=== PATIENT | female | born 1955 | race Caucasian/White ===

== ENCOUNTER → 2018-02-02 09:01 | Outpatient (CLI) | payer OTHER, SELFPAY ==
[2018-02-02 10:05] LABS: ALT 18 U/L (12-78); AST 15 U/L (15-37); Albumin 3.1 g/dL (3.4-5.0); Alkaline Phosphatase 129 U/L (46-116); Anion Gap 6.8 mmol/L (3-11); BUN 15 mg/dL (7-18); Bilirubin, Total 0.3 mg/dL (0.2-1.0); CO2 29.2 mmol/L (21.0-32.0); Calcium 8.7 mg/dL (8.5-10.1); Chloride 104 mmol/L (98-107); Cholesterol 162 mg/dL (50-200); Glucose 90 mg/dL (70-100); HDL Cholesterol 64 mg/dL (40-60); LDL CHOLESTEROL 87 mg/dL (<100); Potassium 4.1 mmol/L (3.5-5.1); Sodium 140 mmol/L (136-145); Triglyceride 103 mg/dL (30-150)
== END ==
PROVIDERS: PCP Nurse Practitioner; Visit Provider Nurse Practitioner
DX: E87.6 Hypokalemia (principal); R74.8 Abnormal levels of other serum enzymes
CPT/HCPCS: 36415; 80053; 80061; 83721

== ENCOUNTER 2018-04-06 08:34 | Outpatient (CLI) | payer OTHER, SELFPAY ==
--- NOTE | 2018-04-06 08:24 | DI.RAD_ITS ---
SYMPTOM/DIAGNOSIS: RT ANKLE PAIN RIGHT ANKLE: Two views. Comparison is made with 05/16/16. The joint space is well maintained. The bones are intact and normally mineralized. The soft tissues are unremarkable. There is a moderate sized spur at the inferior calcaneus. IMPRESSION: Negative right ankle.
== END 2018-04-06 08:54 ==
PROVIDERS: PCP Nurse Practitioner; Visit Provider Physician Assistant
DX: M25.571 Pain in right ankle and joints of right foot (principal); M77.31 Calcaneal spur, right foot
CPT/HCPCS: 73600

== ENCOUNTER 2018-04-06 14:16 | Outpatient (CLI) | payer OTHER, SELFPAY ==
--- NOTE | 2018-04-06 08:38 | DI.RAD_ITS ---
SYMPTOM/DIAGNOSIS: RT FOOT PAIN RIGHT FOOT: Comparison is made with 02/02/16. At the first metatarsal phalangeal joint, there is joint space narrowing and periarticular spurring. Findings of a prior bunionectomy are noted. These degenerative changes have advanced since 2016. Within the tarsal metatarsal joints, there is joint space narrowing, subchondral sclerosis, spurring and subchondral cysts. The findings are most marked at the first tarsal metatarsal joint. Osteophytes are seen at the talonavicular joint in the articulation of the navicular and the cuneiforms. There is a moderate sized spur at the plantar surface of the calcaneus. No radiopaque foreign bodies are seen in the soft tissues. There does appear to be mild soft tissue swelling on the dorsum of the foot. IMPRESSION: Moderately severe degenerative changes of the right foot. The findings have advanced significantly since 02/02/16.
== END 2018-04-06 14:36 ==
PROVIDERS: PCP Nurse Practitioner; Visit Provider Physician Assistant
DX: M79.671 Pain in right foot (principal); M19.071 Primary osteoarthritis, right ankle and foot; M25.771 Osteophyte, right ankle
CPT/HCPCS: 73630

== ENCOUNTER 2018-08-06 10:59 | Outpatient (REF) | payer OTHER, SELFPAY ==
--- NOTE | 2018-08-06 09:00 | PAPFT_PTH ---
PATIENT: Sada Fabian LOC: [facility] U#:[id number] AGE/SX: 62/F ROOM: RE08/06/[address]: Avis Bell MD : 1955 BED: DIS: 08/06/2018 SPEC #: [id number] RECD: 08/06/18 12:57 STATUS: TUCKER REAj #: [id number] JULY: 08/06/18 09:[address]: Avis Bell DEPT: [facility] Cytology RECD BY: Silvia Crabtree ENTERED: 08/06/18 12:57 SP TYPE: PAPFT OTHR DR: Zulay Castro Tissues: 1 - CX/ENDOCX FOR PAP SMEARS Procedures: PAP THIN PREP/UVM Screening HPV DNA PROBE Comments: [id number]
== END 2018-08-06 11:19 ==
LOC: LBN 10:59
PROVIDERS: PCP Nurse Practitioner; Visit Provider Obstetrics & Gynecology
DX: Z12.4 Encounter for screening for malignant neoplasm of cervix (principal); Z11.51 Encounter for screening for human papillomavirus (HPV)
CPT/HCPCS: 88142; 87624

== ENCOUNTER 2018-11-30 11:59 | Outpatient (CLI) | payer OTHER, SELFPAY ==
--- NOTE | 2018-11-30 13:36 | DI.CT_ITS ---
SYMPTOMS/DIAGNOSIS: ANKLE AND MIDFOOT PAIN, NO KNOWN TRAUMA, EVALUATE ARTHRITIS, SUBTALAR AND MIDFOOT, M19.071 CT SCAN OF THE RIGHT FOOT: Multiple contiguous axial images of the right foot were obtained. Sagittal and coronal reformatted images were evaluated on the Siem[employer] workstation. In the tarsal bones at the articular surfaces, there are subchondral cysts present. Subchondral erosions are also seen. No ankylosis or joint space narrowing is definitely appreciated. There do appear to be osteophytes at several of the joint spaces, particularly the tarsometatarsal joints. No significant osteopenia is appreciated. At the 1st metatarsophalangeal joint, there do appear to be periarticular erosions, subchondral cysts and small osteophytes. The joint space appears symmetric, but may be mildly narrowed. The interphalangeal joints are well maintained. No acute fractures or subluxations are present. There is a small osteophyte seen at the plantar surface of the calcaneus. There is generalized soft tissue swelling of the foot. No focal fluid collections are definitely appreciated to suggest an abscess. Mild narrowing and periarticular spurring are seen of the anterior ankle joint. IMPRESSION: Findings involving the joint spaces of the midfoot, 1st metatarsophalangeal joint and the ankle. Primary diagnostic concern is for osteoarthritis; however, other arthritides should be considered including gout. Please correlate clinically.
== END 2018-11-30 12:19 ==
PROVIDERS: PCP Nurse Practitioner; Visit Provider Student in an Organized Health Care Education/Training Program
DX: M19.071 Primary osteoarthritis, right ankle and foot (principal); M25.571 Pain in right ankle and joints of right foot; M79.671 Pain in right foot
CPT/HCPCS: 73700

== ENCOUNTER 2018-12-10 16:58 | Outpatient (REF) | payer OTHER, SELFPAY ==
[2018-12-12 11:11] LABS: Hepatitis C Ab w Rflx HCV PCR Negative (NEGAT)
== END 2018-12-10 17:18 ==
LOC: NCHCN 16:58
PROVIDERS: PCP Nurse Practitioner; Visit Provider Nurse Practitioner Family
DX: Z00.00 Encounter for general adult medical examination without abnormal findings (principal); Z11.59 Encounter for screening for other viral diseases
CPT/HCPCS: 86803

== ENCOUNTER 2019-02-14 19:14 | Outpatient (REF) | payer OTHER, SELFPAY ==
[2019-02-14 20:45] LABS: Abs Immature Grans 0.01 k/cumm (0.0-0.09); Absolute Basophil Count 0.04 k/cumm (0.0-0.2); Absolute Eosinophil Count 0.25 k/cumm (0.0-0.7); Absolute Lymphocyte Count 2.05 k/cumm (1.2-3.4); Absolute Monocyte Count 0.65 k/cumm (0.11-0.7); Absolute Neutrophil Count 5.34 k/cumm (1.2-6.7); Basophils % 0.5; HCT 35.2 % (36.0-46.0); HGB 11.2 g/dL (12.0-15.5); Immature Grans % 0.1; Lymphocytes % 24.6; Mean Corp. HGB Concentration 31.8 g/dL (32.0-36.0); Mean Corpuscular Hemoglobin 27.7 pg (27.0-33.0); Mean Corpuscular Volume 86.9 fL (80-95); Mean Platelet Volume 10.4 fL (8.0-11.0); Monocytes % 7.8; Platelet Count 412 x1000/uL (130-400); RBC 4.05 m/cumm (4.00-5.20); RBC Distribution Width 14.7 % (11.7-14.6); White Blood Cell Count 8.34 k/cumm (4.4-10.8)
[2019-02-14 21:33] LABS: ESR 89 mm/hr (0-30)
[2019-02-14 21:53] LABS: ALT 18 U/L (12-78); AST 17 U/L (15-37); Albumin 3.3 g/dL (3.4-5.0); Alkaline Phosphatase 119 U/L (46-116); Anion Gap 11.5 mmol/L (3-11); BUN 20 mg/dL (7-18); Bilirubin, Total 0.2 mg/dL (0.2-1.0); CO2 26.5 mmol/L (21.0-32.0); CREATININE 0.79 mg/dL (0.55-1.02); Calcium 8.7 mg/dL (8.5-10.1); Chloride 98 mmol/L (98-107); GGT 20 U/L (5-55); Glucose 85 mg/dL (70-100); Sodium 136 mmol/L (136-145); TSH (W/Ref FT4) 1.49 uIU/mL (0.36-3.74); Total Protein 7.7 g/dL (6.4-8.2)
[2019-02-14 22:17] LABS: Vitamin D 25 Total 70.3 ng/ml (30-100)
[2019-02-14 22:58] LABS: C-Reactive Protein 6.24 mg/dL (0.0-0.3)
[2019-02-18 09:19] LABS: Cyclic Citrullinated Peptide <2.5 U/mL (<5.0)
[2019-02-18 11:30] LABS: Lyme Ab w Rflx to Lyme Confirm Negative
[2019-02-18 12:16] LABS: Rheumatoid Factor 11 IU/mL (<12.5)
[2019-02-18 15:44] LABS: ANA Interpretation Positive (NEGAT); ANA Titer Pattern SEE COMMENTS
== END 2019-02-14 19:34 ==
LOC: NCHCN 19:14
PROVIDERS: PCP Nurse Practitioner; Visit Provider Nurse Practitioner Family
DX: I10 Essential (primary) hypertension (principal); R74.8 Abnormal levels of other serum enzymes; F41.9 Anxiety disorder, unspecified; M25.50 Pain in unspecified joint; M19.90 Unspecified osteoarthritis, unspecified site; G47.61 Periodic limb movement disorder; G47.33 Obstructive sleep apnea (adult) (pediatric); N95.1 Menopausal and female climacteric states
CPT/HCPCS: 80053; 82306; 85652; 86200; 82977; 84443; 85025; 86038; 86140; 86431; 86618

== ENCOUNTER 2019-02-20 15:26 | Outpatient (CLI) | payer OTHER, SELFPAY ==
[2019-02-26 11:10] LABS: dsDNA Ab, IgG <12.3 IU/mL (<30)
== END 2019-02-20 15:46 ==
LOC: LBO 18:23 → NCHCO 03-01 10:27
PROVIDERS: PCP Nurse Practitioner; Visit Provider Nurse Practitioner Family
DX: M25.50 Pain in unspecified joint (principal)
CPT/HCPCS: 36415; 86225

== ENCOUNTER 2019-03-01 09:39 | Outpatient (CLI) | payer OTHER, SELFPAY ==
[2019-03-05 10:47] LABS: RNP Ab, IgG 1.6 Units (<20); SS-B (La) Ab, IgG 8.6 Units (<20); Sm (Smith) Ab, IgG 2.4 Units (<20)
== END 2019-03-01 09:59 ==
PROVIDERS: PCP Nurse Practitioner Family; Visit Provider Nurse Practitioner Family
DX: M25.50 Pain in unspecified joint (principal); M19.90 Unspecified osteoarthritis, unspecified site; R79.89 Other specified abnormal findings of blood chemistry
CPT/HCPCS: 36415; 86235

== ENCOUNTER 2019-04-11 01:02 | Outpatient (CLI) | payer OTHER, SELFPAY ==
--- NOTE | 2019-04-11 14:14 | DI.MAMMO_ITS ---
EXAM: MG MAMMO SCREENING 60 MIN DUR CLINICAL HISTORY: screening, Z12.31. TECHNIQUE: Mammograms were interpreted according to the usual protocol including computer analysis w [employer] CAD system, tomosynthesis and C-view imaging. COMPARISON: Comparison is made with prior studies. FINDINGS: The breast tissue is of moderate radiodensity. Note is made of bilateral breast implants. There is no dominant mass. There are no suspicious calcifications. When compared with the previous studies, t here has been no significant interval change. IMPRESSION: No evidence of malignancy, category 1, yearly screening mammography is recommended. Breast density, c ategory B. BI-RADS Cat 1 - Negative. Breast Density - Category B - Scattered areas of fibroglandular density.
== END 2019-04-11 01:22 ==
PROVIDERS: PCP Nurse Practitioner Family; Visit Provider Obstetrics & Gynecology
DX: Z12.31 Encounter for screening mammogram for malignant neoplasm of breast (principal); Z98.82 Breast implant status
CPT/HCPCS: 77063; 77067

== ENCOUNTER 2019-05-27 14:53 | Outpatient (CLI) | payer OTHER, SELFPAY ==
[2019-05-27 15:17] LABS: Abs Immature Grans 0.01 k/cumm (0.0-0.09); Absolute Basophil Count 0.07 k/cumm (0.0-0.2); Absolute Eosinophil Count 0.18 k/cumm (0.0-0.7); Absolute Lymphocyte Count 2.69 k/cumm (1.2-3.4); Absolute Monocyte Count 0.83 k/cumm (0.11-0.7); Absolute Neutrophil Count 5.15 k/cumm (1.2-6.7); Basophils % 0.8; Immature Grans % 0.1; Lymphocytes % 30.1; Mean Corp. HGB Concentration 31.3 g/dL (32.0-36.0); Mean Corpuscular Hemoglobin 26.3 pg (27.0-33.0); Mean Corpuscular Volume 84.2 fL (80-95); Monocytes % 9.3; Neutrophils % 57.7; Platelet Count 456 x1000/uL (130-400); RBC Distribution Width 14.9 % (11.7-14.6); White Blood Cell Count 8.93 k/cumm (4.4-10.8)
[2019-05-27 16:09] LABS: Iron 21 ug/dL (50-170); Total Iron Binding Capacity 267 ug/dL (250-450); Transferrin Sat 8 % (15-50)
== END 2019-05-27 15:13 ==
PROVIDERS: PCP Nurse Practitioner Family; Visit Provider Nurse Practitioner Family
DX: D64.9 Anemia, unspecified (principal)
CPT/HCPCS: 36415; 83540; 83550; 85025

== ENCOUNTER 2019-08-14 15:48 | Outpatient (CLI) | payer OTHER, SELFPAY ==
[2019-08-14 16:57] LABS: Alkaline Phosphatase 110 U/L (46-116)
== END 2019-08-14 16:08 ==
PROVIDERS: PCP Nurse Practitioner Family; Visit Provider Internal Medicine Endocrinology, Diabetes & Metabolism
DX: R74.8 Abnormal levels of other serum enzymes (principal)
CPT/HCPCS: 36415; 84075

== ENCOUNTER 2019-08-30 10:43 | Outpatient (CLI) | payer OTHER, SELFPAY ==
--- NOTE | 2019-08-30 | DI.RAD_ITS ---
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 COMPARISON: No exams were available for comparison TECHNIQUE: 2D digital imaging was performed. FINDINGS: There is joint space narrowing between the scaphoid and trapezium as well as between the trapezium an d base of the 1st metacarpal. There is periarticular spurring and subchondral cyst formation. The f indings are more prominent on the left. There is also narrowing between the capitate, scaphoid and l unate joints, greater on the right side. There are mild degenerative changes of the distal interphal angeal joints of the fingers. No bony erosions are seen. Metacarpophalangeal joints are unremarkabl e. IMPRESSION: Findings consistent with osteoarthritis, greatest at the capitate-scaphoid navicular joints and 1st c arpometacarpal joints. DATA REPOSITORY: RADIATION DOSE DELIVERED:
[2019-08-30 17:01] LABS: C-Reactive Protein 6.05 mg/dL (0.0-0.3)
[2019-08-30 17:30] LABS: ESR 92 mm/hr (0-30)
[2019-09-02 10:55] LABS: Cyclic Citrullinated Peptide <2.5 U/mL (<5.0)
== END 2019-08-30 11:03 ==
PROVIDERS: PCP Nurse Practitioner Family; Visit Provider Internal Medicine
DX: M06.09 Rheumatoid arthritis without rheumatoid factor, multiple sites (principal); M18.0 Bilateral primary osteoarthritis of first carpometacarpal joints
CPT/HCPCS: 36415; 85652; 86200; 73120; 86140

== ENCOUNTER 2019-09-06 16:12 | Outpatient (CLI) | payer OTHER, SELFPAY ==
[2019-09-06 16:30] LABS: Abs Immature Grans 0.04 k/cumm (0.0-0.09); Absolute Lymphocyte Count 1.93 k/cumm (1.2-3.4); Absolute Monocyte Count 0.51 k/cumm (0.11-0.7); Basophils % 0.2; HCT 34.9 % (36.0-46.0); HGB 10.9 g/dL (12.0-15.5); Immature Grans % 0.3 %; Lymphocytes % 14.8; Mean Corp. HGB Concentration 31.2 g/dL (32.0-36.0); Mean Corpuscular Hemoglobin 26.5 pg (27.0-33.0); Mean Corpuscular Volume 84.9 fL (80-95); Mean Platelet Volume 8.7 fL (8.0-11.0); Monocytes % 3.9; Neutrophils % 80.8; Platelet Count 472 x1000/uL (130-400); RBC 4.11 m/cumm (4.00-5.20); RBC Distribution Width 16.2 % (11.7-14.6); White Blood Cell Count 13.07 k/cumm (4.4-10.8)
[2019-09-06 16:31] LABS: Absolute Basophil Count 0.03 k/cumm (0.0-0.2); Absolute Neutrophil Count 10.56 k/cumm (1.2-6.7)
[2019-09-06 17:13] LABS: Iron 24 ug/dL (50-170)
== END 2019-09-06 16:32 ==
PROVIDERS: PCP Nurse Practitioner Family; Visit Provider Nurse Practitioner Family
DX: D50.9 Iron deficiency anemia, unspecified (principal); I10 Essential (primary) hypertension; F41.9 Anxiety disorder, unspecified; E78.5 Hyperlipidemia, unspecified; M25.50 Pain in unspecified joint; G47.33 Obstructive sleep apnea (adult) (pediatric); G47.61 Periodic limb movement disorder
CPT/HCPCS: 36415; 83540; 85025

== ENCOUNTER 2019-10-28 00:57 | Outpatient (CLI) | payer OTHER, SELFPAY ==
[2019-10-28 13:06] LABS: Abs Immature Grans 0.02 k/cumm (0.0-0.09); Absolute Basophil Count 0.06 k/cumm (0.0-0.2); Absolute Eosinophil Count 0.23 k/cumm (0.0-0.7); Absolute Lymphocyte Count 2.62 k/cumm (1.2-3.4); Absolute Monocyte Count 0.91 k/cumm (0.11-0.7); Absolute Neutrophil Count 6.05 k/cumm (1.2-6.7); Basophils % 0.6; Eosinophils % 2.3; HCT 34.2 % (36.0-46.0); HGB 10.7 g/dL (12.0-15.5); Immature Grans % 0.2 %; Lymphocytes % 26.5; Mean Corp. HGB Concentration 31.3 g/dL (32.0-36.0); Mean Corpuscular Hemoglobin 27.1 pg (27.0-33.0); Mean Corpuscular Volume 86.6 fL (80-95); Mean Platelet Volume 9.1 fL (8.0-11.0); Monocytes % 9.2; Neutrophils % 61.2; Platelet Count 489 x1000/uL (130-400); RBC 3.95 m/cumm (4.00-5.20); RBC Distribution Width 16.2 % (11.7-14.6); White Blood Cell Count 9.89 k/cumm (4.4-10.8)
[2019-10-28 14:15] LABS: ALT 14 U/L (14-59); AST 15 U/L (15-37); Alkaline Phosphatase 112 U/L (46-116); Anion Gap 9.8 mmol/L (3-11); BUN 17 mg/dL (7-18); Bilirubin, Total 0.2 mg/dL (0.2-1.0); C-Reactive Protein 5.93 mg/dL (0.0-0.3); CO2 27.2 mmol/L (21.0-32.0); CREATININE 0.82 mg/dL (0.55-1.02); Chloride 103 mmol/L (98-107); Glucose 100 mg/dL (74-106); Potassium 4.1 mmol/L (3.5-5.1); Sodium 140 mmol/L (136-145)
== END 2019-10-28 01:17 ==
PROVIDERS: PCP Nurse Practitioner Family; Visit Provider Internal Medicine
DX: M06.00 Rheumatoid arthritis without rheumatoid factor, unspecified site (principal)
CPT/HCPCS: 36415; 80053; 85025; 86140

== ENCOUNTER 2019-12-12 02:29 | Outpatient (CLI) | payer OTHER, SELFPAY ==
[2019-12-12 15:49] LABS: Abs Immature Grans 0.03 k/cumm (0.0-0.09); Absolute Basophil Count 0.01 k/cumm (0.0-0.2); Absolute Eosinophil Count 0.01 k/cumm (0.0-0.7); Absolute Monocyte Count 0.35 k/cumm (0.11-0.7); Basophils % 0.1; Eosinophils % 0.1; HCT 36.3 % (36.0-46.0); HGB 11.8 g/dL (12.0-15.5); Immature Grans % 0.3 %; Lymphocytes % 9.7; Mean Corp. HGB Concentration 32.5 g/dL (32.0-36.0); Mean Corpuscular Hemoglobin 29.4 pg (27.0-33.0); Mean Corpuscular Volume 90.5 fL (80-95); Monocytes % 3.1; Neutrophils % 86.7; Platelet Count 365 x1000/uL (130-400); RBC 4.01 m/cumm (4.00-5.20); RBC Distribution Width 17.4 % (11.7-14.6); White Blood Cell Count 11.19 k/cumm (4.4-10.8)
[2019-12-12 15:52] LABS: Absolute Lymphocyte Count 1.09 k/cumm (1.2-3.4)
[2019-12-12 17:16] LABS: ALT 21 U/L (14-59); AST 14 U/L (15-37); Albumin 3.4 g/dL (3.4-5.0); Alkaline Phosphatase 115 U/L (46-116); Anion Gap 7.4 mmol/L (3-11); BUN 22 mg/dL (7-18); Bilirubin, Total 0.2 mg/dL (0.2-1.0); C-Reactive Protein 1.06 mg/dL (0.0-0.3); CO2 31.6 mmol/L (21.0-32.0); CREATININE 0.96 mg/dL (0.55-1.02); Calcium 9.8 mg/dL (8.5-10.1); Chloride 98 mmol/L (98-107); Glucose 116 mg/dL (74-106); Potassium 4.3 mmol/L (3.5-5.1); Sodium 137 mmol/L (136-145); Total Protein 6.8 g/dL (6.4-8.2)
== END 2019-12-12 02:49 ==
PROVIDERS: PCP Nurse Practitioner Family; Visit Provider Internal Medicine Endocrinology, Diabetes & Metabolism
DX: M06.09 Rheumatoid arthritis without rheumatoid factor, multiple sites (principal); R74.8 Abnormal levels of other serum enzymes
CPT/HCPCS: 36415; 80053; 85025; 86140

== ENCOUNTER 2020-02-14 04:25 | Outpatient (CLI) | payer OTHER, SELFPAY ==
[2020-02-14 09:34] LABS: Calculated LDL 100 mg/dL (<100); Cholesterol 228 mg/dL (<200); HDL Cholesterol 96 mg/dL (40-60); Triglyceride 161 mg/dL (<150)
== END 2020-02-14 04:45 ==
PROVIDERS: PCP Nurse Practitioner Family; Visit Provider Nurse Practitioner Family
DX: E78.5 Hyperlipidemia, unspecified (principal)
CPT/HCPCS: 36415; 80061

== ENCOUNTER 2020-03-20 02:26 | Outpatient (CLI) | payer OTHER, SELFPAY ==
[2020-03-20 13:32] LABS: Abs Immature Grans 0.06 10^3/uL (0.0-0.06); Absolute Basophil Count 0.06 10^3/uL (0.0-0.2); Absolute Eosinophil Count 0.04 10^3/uL (0.0-0.7); Basophils % 0.5; Eosinophils % 0.3; HCT 33.6 % (36.0-46.0); Immature Grans % 0.5; Lymphocytes % 12.2; MCH 31.6 pg (27.0-33.0); MCHC 32.7 % (32.0-36.0); MCV 96.6 fL (80-95); Monocytes % 5.5; Nucleated RBC 0 %; Platelet Count 359 10^3/uL (130-400); RBC 3.48 10^6/uL (3.93-5.22); RDW 14.7 % (11.7-14.6); RDW-SD 51.2 fL; WBC 12.67 10^3/uL (4.4-10.8)
[2020-03-20 13:34] LABS: Absolute Lymphocyte Count 1.55 10^3/uL (1.2-3.4); Absolute Neutrophil Count 10.26 10^3/uL (1.2-6.7)
[2020-03-20 14:21] LABS: ALT 17 U/L (14-59); AST 15 U/L (15-37); Albumin 3.3 g/dL (3.4-5.0); Alkaline Phosphatase 111 U/L (46-116); Anion Gap 5.9 mmol/L (3-11); BUN 25 mg/dL (7-18); Bilirubin, Total 0.2 mg/dL (0.2-1.0); C-Reactive Protein 1.32 mg/dL (0.0-0.3); CO2 32.1 mmol/L (21.0-32.0); CREATININE 1.09 mg/dL (0.55-1.02); Calcium 9.3 mg/dL (8.5-10.1); Chloride 101 mmol/L (98-107); Estimated GFR 50.54 (mL/min/1.73m2); Glucose 111 mg/dL (74-106); Potassium 4.4 mmol/L (3.5-5.1); Sodium 139 mmol/L (136-145); Total Protein 6.5 g/dL (6.4-8.2)
== END 2020-03-20 02:46 ==
PROVIDERS: PCP Nurse Practitioner Family; Visit Provider Internal Medicine
DX: M06.09 Rheumatoid arthritis without rheumatoid factor, multiple sites (principal)
CPT/HCPCS: 36415; 80053; 85025; 86140

== ENCOUNTER 2020-05-20 02:52 | Outpatient (CLI) | payer OTHER, SELFPAY ==
[2020-05-20 09:39] LABS: Alkaline Phosphatase 97 U/L (46-116)
== END 2020-05-20 03:12 ==
PROVIDERS: PCP Nurse Practitioner Family; Visit Provider Internal Medicine Endocrinology, Diabetes & Metabolism
DX: R74.8 Abnormal levels of other serum enzymes (principal)
CPT/HCPCS: 36415; 84075

== ENCOUNTER 2020-06-19 03:24 | Outpatient (CLI) | payer OTHER, SELFPAY ==
[2020-06-22 17:19] LABS: COVID-19 RT-PCR Result NEGATIVE (Negative)
== END 2020-06-19 03:44 ==
PROVIDERS: PCP Nurse Practitioner Family; Visit Provider Surgery
DX: Z11.59 Encounter for screening for other viral diseases (principal); Z01.818 Encounter for other preprocedural examination
CPT/HCPCS: U0003

== ENCOUNTER 2020-06-19 03:40 | Outpatient (CLI) | payer OTHER, SELFPAY ==
[2020-06-19 12:26] LABS: Abs Immature Grans 0.03 10^3/uL (0.0-0.06); Absolute Basophil Count 0.04 10^3/uL (0.0-0.2); Absolute Eosinophil Count 0.01 10^3/uL (0.0-0.7); Absolute Monocyte Count 0.46 10^3/uL (0.1-0.8); Basophils % 0.5; Eosinophils % 0.1; HCT 33.8 % (36.0-46.0); HGB 10.7 g/dL (11.2-15.7); Immature Grans % 0.3; Lymphocytes % 12.7; MCH 30.4 pg (27.0-33.0); MCHC 31.7 % (32.0-36.0); MPV 9.3 fL (8.0-11.0); Monocytes % 5.3; Neutrophils % 81.1; Nucleated RBC 0 %; Platelet Count 306 10^3/uL (130-400); RBC 3.52 10^6/uL (3.93-5.22); RDW 14.5 % (11.7-14.6); RDW-SD 50.4 fL; WBC 8.64 10^3/uL (4.4-10.8)
[2020-06-19 13:49] LABS: Iron 16 ug/dL (50-170); Total Iron Binding Capacity 244 ug/dL (250-450); Transferrin Sat 7 % (15-50)
== END 2020-06-19 04:00 ==
PROVIDERS: PCP Nurse Practitioner Family; Visit Provider Nurse Practitioner Family
DX: D50.9 Iron deficiency anemia, unspecified (principal); I10 Essential (primary) hypertension; E78.5 Hyperlipidemia, unspecified
CPT/HCPCS: 36415; 83540; 83550; 85025

== ENCOUNTER 2020-06-24 08:05 | Day surgery (SDC) | payer OTHER, SELFPAY ==
--- NOTE | 2020-06-24 07:02 | W.COLOREPORT ---
Date of service: 06/24/20 Time of Service: 10:14 Colonoscopy Report Date of procedure: 06/24/20 Pre-op diagnosis general: Constipation Post-op diagnosis procedure note: same Procedure: Colonoscopy Surgeon: Alma Delia Harvey Anesthesia proc note operative: other (General/ASA 2/Ness clayton, ABRASIVE MIXER) Estimated blood loss (mL): 0 Pathology: none sent Complications: None Disposition: same day Indications: Sada is here today because over the last 2 months she has had severe constipation. If she has not had a bowel movement for a day she tries using MiraLAX, fiber, senna to have a bowel movement. She eventually does have a bowel movement but then it is profuse diarrhea until her system is empty. She has had some increased mucus discharge with the diarrhea. She is also had a little bit of bright red blood on the toilet paper when she is constipated. She denies any weight loss heartburn or gastritis. She also has anemia which is improving on iron. Her last colonoscopy 5 years ago was normal. She did not have polyps. She did have diverticulosis. Colonoscopy and prep were reviewed in detail. We also reviewed Covid testing and quarantine requirements. Risks, benefits and complications have been reviewed. Complications include but are not limited to bleeding, pain, perforation, missed small lesion/polyp, sore throat, aspiration and adverse reaction to the medications. Questions were entertained and answered to their satisfaction and they wished to proceed. No guarantees were given or implied. COVID-19 testing explained to the patient. Reason for test reviewed. Quarantine per state requirements reviewed with patient. Patient understands and agrees to testing. Proceed with colonoscopy under sedation. Prep: Miralax/Dulcolax Procedure Start Time: 09:42 Procedure End Time: 10:09 Retraction Time: 13 minutes Findings: Normal colon and terminal ileum Procedure Description: After informed consent was obtained the patient was taken to the procedure room and placed in a left decubitous position. Monitors were applied and a time out was done. The patients name, date of , procedure, allergies to medications and metal in their body was reviewed. The patient was then sedated. Once sedated and comfortable a rectal exam was done. External exam was normal. Internal exam revealed a normal sphincter tone and no palpable masses. The scope was then introduced and retro-flexed. No internal hemorrhoids were identified. The scope was then advanced to the cecum without difficulty. The ileocecal valve and appendiceal orifice were identified. The prep was good. The scope was advanced into the terminal ileum. There were no abnormalities in the terminal ileum. The scope was then slowly retracted over 13 minutes back into the rectum. there were no polyps, massess or diverticula. The scope was removed and the patient was woken up and taken back to Same day surgery in stable condition. The patient tolerated the procedure well and there were no immediate complications. Follow up: The patient should follow up in 10 years unless they develop changes in bowel habits or other new gastrointestinal complaints.
--- NOTE | 2020-06-24 07:03 | PDOC.DSDIS_ITS ---
Discharge Plan Disposition Patient Disposition: HOME Condition: Good Discharge Details Reason For Visit: Colonoscopy Attending Provider: Alma Delia Harvey Primary Care Provider: Kriss Rodriguez Home Meds and New Rx's Prescriptions: Continued calcium carbonate [Antacid (calcium carbonate)] 200 mg calcium (500 mg) tablet,chewable 600 mg PO BID RF: 0 ferrous sulfate 325 mg (65 mg iron) tablet 325 mg PO DAILY RF: 0 methotrexate sodium 2.5 mg tablet 2.5 mg PO QWEEK RF: 0 hydroxychloroquine 200 mg tablet 200 mg PO DAILY RF: 0 prednisone 1 mg tablet 1 mg PO DAILY RF: 0 oxybutynin chloride [Ditropan XL] 5 mg tablet extended release 24hr 5 mg PO DAILY RF: 0 cholecalciferol (vitamin D3) 1,000 UNIT capsule 1,000 unit PO BID RF: 0 diltiazem HCl 120 MG tablet 240 mg PO HS RF: 0 quinapril 40 MG tablet 40 mg PO HS RF: 0 multivitamin [Multi-Day] 1 EACH tablet 1 ea PO DAILY RF: 0 acetaminophen [Mapap Extra Strength] 500 MG tablet 1,000 mg PO TID Qty: 180 RF: 0 folic acid 1 mg tablet 2 mg PO DAILY RF: 0 Discharge Instructions Instructions: Constipation (DC) Additional Instructions: Findings: Normal colon Follow up: 10 years medication: try Miralax daily for the constipation. If no improvement let me know Please call if you develop: fevers >101.5 Nausea or Vomiting Abdominal pain that is not transient DAY SURGERY UNIT POST ENDOSCOPY INSTRUCTIONS 1. Because there will be medication in your system for the next 24 hours, you ma y feel a little sleepy. Your coordination will be affected. Therefore: a. Do not drive or operate dangerous equipment for 24 hours. b. Do not drink alcohol beverages for 24 hours (not even beer). c. Plan to go home and rest for the day. 2. Generally there are no restrictions on your activity after a day or so has gone by, but you may feel a bit fatigued for a few days. 3 After you arrive home you may have a light meal and return to a normal diet as you can tolerate it without feeling sick to your stomach. 4. After surgery, you may feel pain or discomfort. This should be only transient, but if it persists please contact your doctor. 5. If there are any questions regarding the findings of your procedure, please feel free to contact your doctor. 6. If you are unable to contact your doctor with a problem, contact the hospital at [phone]. 7. Continue all your regular medications unless directed otherwise. I understand the above instructions and have no questions. Signature of Patient or Responsible Adult Escort Date/Time Name of Responsible Adult Escort Signature of Nurse Date/Time Activity:: Activity as Tolerated Diet:: As Tolerated Discharge Orders Discharge Orders: Discharge Order (Routine); Ordered 06/24/20 Ordered By: Alma Delia Harvey
[2020-06-24 08:18] VITALS: BP 137/71; PULSE 68; RESP 16; TEMP 36.4; O2SAT 100
[2020-06-24] MEDS: Lactated Ringers 1,000 ML 80 ML IV (09:47)
[2020-06-24 10:40] VITALS: BP 124/74; PULSE 78; RESP 16; TEMP 36.5; O2SAT 98
== END 2020-06-24 10:50 | disposition home or self-care (01) ==
LOC: SUR 08:06
PROVIDERS: PCP Nurse Practitioner Family; Visit Provider Surgery
PROC: 0DJD8ZZ Inspection of Lower Intestinal Tract, Via Natural or Artificial Opening Endoscopic (ICD-10-PCS; CPT 45378; principal; 2020-06-24 09:15)
DX: K59.00 Constipation, unspecified (principal)
CPT/HCPCS: 45378; J2001

== ENCOUNTER 2020-06-29 03:04 | Outpatient (CLI) | payer OTHER, SELFPAY ==
[2020-06-29 07:31] LABS: Abs Immature Grans 0.04 10^3/uL (0.0-0.06); Absolute Basophil Count 0.05 10^3/uL (0.0-0.2); Absolute Eosinophil Count 0.22 10^3/uL (0.0-0.7); Absolute Lymphocyte Count 1.47 10^3/uL (1.2-3.4); Absolute Monocyte Count 0.71 10^3/uL (0.1-0.8); Absolute Neutrophil Count 7.02 10^3/uL (1.2-6.7); Basophils % 0.5; Eosinophils % 2.3; HCT 32.9 % (36.0-46.0); HGB 10.8 g/dL (11.2-15.7); Immature Grans % 0.4; Lymphocytes % 15.5; MCH 30.8 pg (27.0-33.0); MCHC 32.8 % (32.0-36.0); MCV 93.7 fL (80-95); MPV 9.2 fL (8.0-11.0); Monocytes % 7.5; Neutrophils % 73.8; Nucleated RBC 0 %; Platelet Count 315 10^3/uL (130-400); RBC 3.51 10^6/uL (3.93-5.22); RDW 14.3 % (11.7-14.6); RDW-SD 48.1 fL; WBC 9.51 10^3/uL (4.4-10.8)
[2020-06-29 08:51] LABS: ALT 16 U/L (14-59); AST 12 U/L (15-37); Albumin 3.1 g/dL (3.4-5.0); Alkaline Phosphatase 77 U/L (46-116); Anion Gap 9.4 mmol/L (3-11); BUN 17 mg/dL (7-18); Bilirubin, Total 0.4 mg/dL (0.2-1.0); CO2 27.6 mmol/L (21.0-32.0); CREATININE 0.93 mg/dL (0.55-1.02); Calcium 8.8 mg/dL (8.5-10.1); Chloride 105 mmol/L (98-107); Glucose 82 mg/dL (74-106); Potassium 3.8 mmol/L (3.5-5.1); Sodium 142 mmol/L (136-145); Total Protein 6.2 g/dL (6.4-8.2)
== END 2020-06-29 03:24 ==
PROVIDERS: PCP Nurse Practitioner Family; Visit Provider Internal Medicine
DX: Z79.899 Other long term (current) drug therapy (principal)
CPT/HCPCS: 36415; 80053; 85025

== ENCOUNTER 2020-07-15 01:40 | Outpatient (CLI) | payer OTHER, SELFPAY ==
--- NOTE | 2020-07-15 | DI.NM_ITS ---
EXAM: NM BONE SCAN WHOLE BODY GRP CLINICAL HISTORY: ABNL SERUM ENZYMES,R74.8. TECHNIQUE: Whole-body bone scan was performed with IV technetium 99 MDP. The dose = 24.7 millicurie s COMPARISON: CR XR foot RT complete from 04/06/2018 FINDINGS: There is multifocal uptake in the skeleton. There is a photopenic zone in the left knee consistent with prosthesis. There is some increased acti vity subjacent to the tibial component which may imply an element of loosening. There is significant uptake throughout the opposite-right knee is most probably degenerative. Promin ent uptake seen in the right foot proximally and midfoot which consistent with degenerative or erosiv e changes and there is also mild increased uptake seen in the great toe metatarsophalangeal joint of the same right foot. A lesser amount of uptake is seen in the opposite-left foot, also in the region of the mid foot level. Less uptake more proximally in the left foot. At level the hips there is no significant abnormal uptake in the femoral head and neck on either side but there is symmetrical uptake in the outer aspect of the greater trochanters bilaterally. In the pelvis there is asymmetric uptake in the right sacroiliac joint. In the spinal column there is increased uptake seen bilaterally at L4-5 level which is most probably related to degenerative facet joint arthropathy. Also some mild increased focal uptake seen on both sides of the upper thoracic spine, probably also related to facet joint changes. Mild increased upta ke in the lower cervical spine is most probably degenerative. No abnormal uptake seen in the skull. The rib cage is there is increased uptake antral laterally in the left 10th rib, possibly from prior fracture. There is no abnormal uptake elsewhere in the left rib cage. Some mild focal increased upt concepción is seen anteriorly in the right 8th rib at the costochondral junction. There is significant increased uptake in both wrists, slightly the more so on the right side. Also i n the shoulders of the level of the AC joints. IMPRESSION: 1. Multilevel uptake which is more in keeping with degenerative/inflammatory change than metastatic d isease. 2. Photopenic zone in the left knee is most probably prosthesis. There may be an element of looseni ng of the tibial component. DATA REPOSITORY:
== END 2020-07-15 02:00 ==
PROVIDERS: PCP Nurse Practitioner Family; Visit Provider Internal Medicine Endocrinology, Diabetes & Metabolism
DX: R74.8 Abnormal levels of other serum enzymes (principal)
CPT/HCPCS: 78306

== ENCOUNTER 2020-08-12 07:54 | Outpatient (CLI) | payer OTHER, SELFPAY ==
--- NOTE | 2020-08-12 13:40 | DI.MAMMO_ITS ---
EXAM: MAMMO SCREENING 60 MIN DUR CLINICAL HISTORY: IMPLANTS, SCREENING, FAMILY H/O BREAST CA,Z80.3 TECHNIQUE: Mammograms were interpreted according to the usual protocol including computer analysis w [employer] system, tomosynthesis and C-view imaging. COMPARISON: Two thousand twelve, 2012 and 2018. FINDINGS: The breasts are composed of scattered fibroglandular densities, Breast Density category B. Bilateral breast implants are again noted. There is calcification at the periphery, right greater th an left, unchanged. No suspicious masses or suspicious microcalcifications are seen. No skin thickening or abnormal axillary lymph nodes are seen. There has been no significant change from prior exams. IMPRESSION: BI-RADS Category 1, Negative mammogram Yearly screening mammography is recommended. Breast Density - Category B, scattered fibroglandular densities. A negative radiographic report should not delay biopsy if a dominant or clinically suspicious mass is present. Up to ten percent of cancers are not identified on mammography. A negative report may reinforce clinical impression. Adenosis and dense breasts may obscure an underlying neoplasm. False positive reports average 6 to 10%. Patient will receive a letter notifying them of these results.
== END 2020-08-12 08:14 ==
PROVIDERS: PCP Nurse Practitioner Family; Visit Provider Nurse Practitioner Family
DX: Z12.31 Encounter for screening mammogram for malignant neoplasm of breast (principal); Z80.3 Family history of malignant neoplasm of breast
CPT/HCPCS: 77063; 77067

== ENCOUNTER 2020-08-20 15:20 | Outpatient (CLI) | payer OTHER, SELFPAY ==
--- NOTE | 2020-08-20 13:30 | DI.RAD_ITS ---
EXAM: XR KNEE LT 3V AP,LAT,MARGAUX CLINICAL HISTORY: f/u. TECHNIQUE: 2D digital imaging was performed. COMPARISON: CR LEFT KNEE LIMITED 1 OR 2 VIEWS from 05/31/2017 FINDINGS: There is stable appearance of the components of the prosthesis. No migration. No obvious loosening no radiographic evidence of osteomyelitis. Again noted is evidence of patellar resurfacing. On the present study there appears to be a probable joint effusion. This is seen on the lateral view at the suprapatellar bursa level. IMPRESSION: DATA REPOSITORY: RADIATION DOSE DELIVERED:
== END 2020-08-20 15:21 | disposition home or self-care (01) ==
LOC: DIORS 15:20
PROVIDERS: PCP Nurse Practitioner Family; Referring Provider Nurse Practitioner Family; Visit Provider Physician Assistant
DX: M25.562 Pain in left knee (principal); Z96.652 Presence of left artificial knee joint; M17.12 Unilateral primary osteoarthritis, left knee; M25.462 Effusion, left knee
CPT/HCPCS: 73562

== ENCOUNTER 2020-08-21 19:07 | Outpatient (CLI) | payer OTHER, SELFPAY ==
[2020-08-21 13:05] LABS: Iron 19 ug/dL (50-170); Total Iron Binding Capacity 304 ug/dL (250-450)
[2020-08-21 13:06] LABS: Abs Immature Grans 0.04 10^3/uL (0.0-0.06); Absolute Basophil Count 0.03 10^3/uL (0.0-0.2); Absolute Eosinophil Count 0.06 10^3/uL (0.0-0.7); Absolute Lymphocyte Count 0.95 10^3/uL (1.2-3.4); Absolute Monocyte Count 0.65 10^3/uL (0.1-0.8); Basophils % 0.3; Eosinophils % 0.6; HCT 38.1 % (36.0-46.0); Immature Grans % 0.4; Lymphocytes % 8.9; MCH 29.4 pg (27.0-33.0); MCHC 31.5 % (32.0-36.0); MCV 93.4 fL (80-95); MPV 9.8 fL (8.0-11.0); Monocytes % 6.1; Neutrophils % 83.7; Nucleated RBC 0 %; Platelet Count 368 10^3/uL (130-400); RBC 4.08 10^6/uL (3.93-5.22); RDW 16.2 % (11.7-14.6); RDW-SD 54.7 fL; WBC 10.63 10^3/uL (4.4-10.8)
[2020-08-24 07:57] LABS: Ferritin 57 ng/mL (8-252)
[2020-08-24 09:18] LABS: HBs Antibody, Quant 929.4 mIU/mL (See Note); Hepatitis B Surface Ab Positive (See Note)
[2020-08-24 09:35] LABS: Hepatitis C Ab w Rflx HCV PCR Negative (Negative)
[2020-08-24 09:44] LABS: Hepatitis B Surface Ag Negative (Negative)
[2020-08-24 15:36] LABS: TB Interpretation Negative (Negative)
== END 2020-08-21 19:08 | disposition home or self-care (01) ==
LOC: LBO 08-27 19:07
PROVIDERS: PCP Nurse Practitioner Family; Visit Provider Internal Medicine
DX: D50.9 Iron deficiency anemia, unspecified (principal); M06.09 Rheumatoid arthritis without rheumatoid factor, multiple sites; Z11.59 Encounter for screening for other viral diseases; I10 Essential (primary) hypertension; E78.5 Hyperlipidemia, unspecified
CPT/HCPCS: 36415; 86706; 86803; 87340; 82728; 83540; 83550; 85025; 86480; 86704

== ENCOUNTER 2020-11-20 03:11 | Outpatient (CLI) | payer OTHER, SELFPAY ==
[2020-11-20 14:16] LABS: Abs Immature Grans 0.02 10^3/uL (0.0-0.06); Absolute Basophil Count 0.05 10^3/uL (0.0-0.2); Absolute Eosinophil Count 0.04 10^3/uL (0.0-0.7); Absolute Lymphocyte Count 1.63 10^3/uL (1.2-3.4); Absolute Monocyte Count 0.57 10^3/uL (0.1-0.8); Absolute Neutrophil Count 4.84 10^3/uL (1.2-6.7); Basophils % 0.7; Eosinophils % 0.6; HGB 12.9 g/dL (11.2-15.7); Immature Grans % 0.3; Lymphocytes % 22.8; MCH 31.3 pg (27.0-33.0); MCHC 33.1 % (32.0-36.0); MCV 94.7 fL (80-95); MPV 9.5 fL (8.0-11.0); Neutrophils % 67.6; Nucleated RBC 0 %; Platelet Count 282 10^3/uL (130-400); RBC 4.12 10^6/uL (3.93-5.22); RDW 15.6 % (11.7-14.6); RDW-SD 53.7 fL; WBC 7.15 10^3/uL (4.4-10.8)
[2020-11-20 15:47] LABS: Iron 38 ug/dL (50-170); Total Iron Binding Capacity 335 ug/dL (250-450); Transferrin Sat 11 % (15-50)
[2020-11-23 09:32] LABS: HBs Antibody, Quant 804.2 mIU/mL (See Note); Hepatitis B Surface Ab Positive (See Note)
[2020-11-23 09:48] LABS: Hepatitis B Surface Ag Negative (Negative)
[2020-11-23 10:26] LABS: Hepatitis C Ab w Rflx HCV PCR Negative (Negative)
[2020-11-23 14:58] LABS: TB Interpretation Negative (Negative); TB1 Ag minus Nil 0.01 IU/ml
== END 2020-11-20 03:12 | disposition home or self-care (01) ==
LOC: LBO 03:11
PROVIDERS: PCP Nurse Practitioner Family; Visit Provider Internal Medicine
DX: M06.09 Rheumatoid arthritis without rheumatoid factor, multiple sites (principal); D50.9 Iron deficiency anemia, unspecified; I10 Essential (primary) hypertension; E78.5 Hyperlipidemia, unspecified; Z11.59 Encounter for screening for other viral diseases
CPT/HCPCS: 36415; 86706; 86803; 87340; 83540; 83550; 85025; 86480; 86704

== ENCOUNTER 2020-12-14 20:49 | Outpatient (REF) | payer OTHER, SELFPAY | END 2020-12-14 20:50 | disposition home or self-care (01) | LOC: NCHCN 20:49 | PROVIDERS: PCP Nurse Practitioner Family; Visit Provider Nurse Practitioner Family | DX: R19.8 Other specified symptoms and signs involving the digestive system and abdomen (principal) | CPT/HCPCS: 87329 ==

== ENCOUNTER 2020-12-21 18:04 | Outpatient (REF) | payer OTHER, SELFPAY ==
[2020-12-21 22:01] LABS: Abs Immature Grans 0.01 10^3/uL (0.0-0.06); Absolute Basophil Count 0.05 10^3/uL (0.0-0.2); Absolute Eosinophil Count 0.05 10^3/uL (0.0-0.7); Absolute Lymphocyte Count 1.27 10^3/uL (1.2-3.4); Absolute Monocyte Count 0.38 10^3/uL (0.1-0.8); Absolute Neutrophil Count 4.06 10^3/uL (1.2-6.7); Basophils % 0.9; Eosinophils % 0.9; HCT 39.1 % (36.0-46.0); Immature Grans % 0.2; Lymphocytes % 21.8; MCH 31.6 pg (27.0-33.0); MCHC 33.2 % (32.0-36.0); MCV 94.9 fL (80-95); MPV 10.8 fL (8.0-11.0); Monocytes % 6.5; Neutrophils % 69.7; Nucleated RBC 0 %; Platelet Count 289 10^3/uL (130-400); RBC 4.12 10^6/uL (3.93-5.22); RDW 15.2 % (11.7-14.6); RDW-SD 52.7 fL; WBC 5.82 10^3/uL (4.4-10.8)
[2020-12-21 22:56] LABS: Iron 94 ug/dL (50-170); Total Iron Binding Capacity 322 ug/dL (250-450); Transferrin Sat 29 % (15-50)
[2020-12-21 23:12] LABS: Vitamin D 25 Total 61.1 ng/mL (30-100)
[2020-12-21 23:16] LABS: ALT 32 U/L (14-59); AST 26 U/L (15-37); Albumin 4.1 g/dL (3.4-5.0); Alkaline Phosphatase 122 U/L (46-116); Anion Gap 12.2 mmol/L (3-11); BUN 17 mg/dL (7-18); Bilirubin, Total 0.6 mg/dL (0.2-1.0); CO2 25.8 mmol/L (21.0-32.0); CREATININE 0.8 mg/dL (0.55-1.02); Calcium 9.3 mg/dL (8.5-10.1); Chloride 104 mmol/L (98-107); GGT 21 U/L (5-55); Glucose 91 mg/dL (74-106); Potassium 4.3 mmol/L (3.5-5.1); Sodium 142 mmol/L (136-145); TSH (W/Ref FT4) 0.51 uIU/mL (0.36-3.74); Total Protein 7.2 g/dL (6.4-8.2); Vitamin B12 791 pg/mL (193-986)
== END 2020-12-21 18:05 | disposition home or self-care (01) ==
LOC: NCHCN 18:04
PROVIDERS: PCP Nurse Practitioner Family; Visit Provider Nurse Practitioner Family
DX: F41.9 Anxiety disorder, unspecified (principal); R53.83 Other fatigue; R19.8 Other specified symptoms and signs involving the digestive system and abdomen; R10.2 Pelvic and perineal pain; M25.59 Pain in other specified joint; Z13.820 Encounter for screening for osteoporosis; G47.33 Obstructive sleep apnea (adult) (pediatric)
CPT/HCPCS: 80053; 82306; 87329; 82607; 82977; 83540; 83550; 84443; 85025

== ENCOUNTER 2020-12-25 11:54 | Outpatient (CLI) | payer OTHER, SELFPAY ==
--- NOTE | 2020-12-25 07:45 | DI.RAD_ITS ---
Exam(s) XR ABDOMEN FLAT UPRIGHT EXAM: 2D digital imaging was performed. CLINICAL HISTORY: pain/obstipation R10.9 ABD PAIN D25.9 LEIOMYOMA K59.00 CONSTIPATION. COMPARISON: CT CHEST FOR PULMONARY EMBOLUS from 11/04/2017 CT CHEST FOR PULMONARY EMBOLUS from 11/04/2017 TECHNIQUE: Supine and upright views of the abdomen were performed. FINDINGS: The visualized portions of the lung bases are clear. The heart size is normal. No free air is seen beneath the diaphragm. The bowel is nondistended. There is a normal quantity of stool. An old left pubic fracture is seen. Degenerative changes are noted in the spine, greatest in the lower lumbar l evels. No pathologic calcifications or organomegaly is seen. IMPRESSION: 1. Nonobstructive bowel gas pattern. 2. No radiopaque calculi. 3. No free air. DATA REPOSITORY: RADIATION DOSE DELIVERED:
--- NOTE | 2020-12-25 09:52 | DI.VRAD_ITS ---
PROCEDURE INFORMATION: Exam: XR Abdomen Exam date and time: 12/25/2020 7:50 AM Age: 65 years old Clinical indication: Abdominal pain; Patient HX: Pain/obstipation; Uterine fibroid TECHNIQUE: Imaging protocol: XR of the abdomen. Views: 2 Views. Upright and supine views. COMPARISON: NM BONE SCAN WHOLE BODY GRP 07/15/2020 1:23 PM FINDINGS: Gastrointestinal tract: Localized small bowel dilatation air-fluid levels in the right mid abdomen. Bones/joints: Degenerative change. Healing fracture of the left pubis. Soft tissues: Calcified right breast implant. Other findings: Prominent stool. IMPRESSION: Localized small bowel dilatation air-fluid levels in the right mid abdomen. Dictated and Authenticated by: Abhinav Palacios MD. Ordering:KHLOE Chavez MD
== END 2020-12-25 12:14 ==
PROVIDERS: PCP Nurse Practitioner Family; Visit Provider Surgery
DX: K63.89 Other specified diseases of intestine (principal); D25.9 Leiomyoma of uterus, unspecified; K59.00 Constipation, unspecified
CPT/HCPCS: 74019

== ENCOUNTER 2021-01-12 02:05 | Outpatient (CLI) | payer OTHER, SELFPAY ==
--- NOTE | 2021-01-12 | DI.DEXA_ITS ---
Exam(s) XR DEXA BONE DENSITY W/WO RICCI EXAM: XR DEXA BONE DENSITY W/WO RICCI CLINICAL HISTORY: SCREENING FOR OSTEOPOROSIS, Z13.820 TECHNIQUE: Routine DEXA evaluation of the lumbar spine, hip, or forearm. COMPARISON: Prior DEXA scan August 2017 was reviewed FINDINGS: Performed on a [employer] unit. Lateral image: L1 compression fracture noted Lumbar Spine total T-score: -1.3. Prior 2018 reading was -1.7 Hip total T-score:-2.3. Prior 2018 reading was -1.8. Independent reading at the femoral neck today yields a T-score of -2.2. Forearm total T-score: -2.3 IMPRESSION: Bone mineral density measures in the osteopenia range. Fracture risk is moderate. Note: Any spine fracture indicates 5x risk for subsequent spine fracture and 2x risk for subsequent h ip fracture. World Health Organization criteria for BMD interpretation classify patients: Normal...... T- Score at or above -1.0 Osteopenic... T- Score between -1.0 and -2.5 Osteoporosis... T-Score at or below -2.5
== END 2021-01-12 02:25 ==
PROVIDERS: PCP Nurse Practitioner Family; Visit Provider Nurse Practitioner Family
DX: Z13.820 Encounter for screening for osteoporosis (principal); R93.7 Abnormal findings on diagnostic imaging of other parts of musculoskeletal system
CPT/HCPCS: 77080

== ENCOUNTER 2021-03-02 03:33 | Outpatient (CLI) | payer OTHER, SELFPAY ==
[2021-03-02 08:07] LABS: Abs Immature Grans 0.02 10^3/uL (0.0-0.06); Absolute Basophil Count 0.06 10^3/uL (0.0-0.2); Absolute Eosinophil Count 0.26 10^3/uL (0.0-0.7); Absolute Lymphocyte Count 1.86 10^3/uL (1.2-3.4); Absolute Monocyte Count 0.68 10^3/uL (0.1-0.8); Absolute Neutrophil Count 5.92 10^3/uL (1.2-6.7); Basophils % 0.7; HCT 39.6 % (36.0-46.0); HGB 13.2 g/dL (11.2-15.7); Immature Grans % 0.2; Lymphocytes % 21.1; MCH 31.6 pg (27.0-33.0); MCHC 33.3 % (32.0-36.0); MCV 94.7 fL (80-95); MPV 9.6 fL (8.0-11.0); Monocytes % 7.7; Neutrophils % 67.3; Nucleated RBC 0 %; Platelet Count 288 10^3/uL (130-400); RBC 4.18 10^6/uL (3.93-5.22); RDW 14.6 % (11.7-14.6); RDW-SD 50.4 fL
[2021-03-02 09:41] LABS: Iron 108 ug/dL (50-170); Total Iron Binding Capacity 328 ug/dL (250-450); Transferrin Sat 33 % (15-50)
[2021-03-02 09:56] LABS: ALT 51 U/L (14-59); AST 30 U/L (15-37); Albumin 3.7 g/dL (3.4-5.0); Alkaline Phosphatase 119 U/L (46-116); Anion Gap 10.3 mmol/L (3-11); BUN 16 mg/dL (7-18); Bilirubin, Total 0.5 mg/dL (0.2-1.0); CO2 27.7 mmol/L (21.0-32.0); CREATININE 0.9 mg/dL (0.55-1.02); Chloride 105 mmol/L (98-107); Ferritin 78 ng/mL (8-252); Glucose 98 mg/dL (74-106); Potassium 4.3 mmol/L (3.5-5.1); Sodium 143 mmol/L (136-145); Total Protein 6.9 g/dL (6.4-8.2)
[2021-03-02 17:16] LABS: Thyroglobulin Antibody <15 U/mL (<=60); Thyroperoxidase Antibody 43 U/mL (<=60)
[2021-03-03 09:52] LABS: IgA 216 mg/dL (85-499); IgG 846 mg/dL (610-1,616); IgM 136 mg/dL (35-242)
[2021-03-03 10:46] LABS: EBNA IgG Positive (Negative); EBV Interpretation (See Note); VCA IgG Positive (Negative); VCA IgM Negative (Negative)
[2021-03-03 13:48] LABS: IgA 219 mg/dL (85-499); Interpretation (See Note); Tissue Transglutaminase IgA <1.2 U/mL (<4.0)
[2021-03-04 01:16] LABS: Vitamin D 25 Total 50.6 ng/mL (30-100)
[2021-03-04 10:35] LABS: EBV EA IgG Negative (Negative)
[2021-03-04 15:09] LABS: Zinc, Serum 0.72 mcg/mL (0.66-1.10)
[2021-03-05 14:36] LABS: M. pneumoniae Ab, IgG Positive (Negative); M. pneumoniae Ab, IgM Negative (Negative)
[2021-03-22 15:17] LABS: Misc Referral (MAYO) See Comments
== END 2021-03-02 03:34 | disposition home or self-care (01) ==
LOC: LBO 03:34
PROVIDERS: PCP Nurse Practitioner Family; Visit Provider Internal Medicine
DX: M06.09 Rheumatoid arthritis without rheumatoid factor, multiple sites (principal); E78.5 Hyperlipidemia, unspecified; I10 Essential (primary) hypertension; D50.9 Iron deficiency anemia, unspecified; M25.59 Pain in other specified joint; G47.33 Obstructive sleep apnea (adult) (pediatric); E55.9 Vitamin D deficiency, unspecified; K90.49 Malabsorption due to intolerance, not elsewhere classified; L60.3 Nail dystrophy; Z83.49 Family history of other endocrine, nutritional and metabolic diseases; E61.1 Iron deficiency
CPT/HCPCS: 36415; 80053; 82306; 82784; 83516; 86663; 87799; 82728; 83540; 83550; 84630; 85025; 86376; 86664; 86665; 86738; 86800; 87798

== ENCOUNTER 2021-03-12 02:58 | Outpatient (CLI) | payer OTHER, SELFPAY ==
[2021-03-12 13:33] LABS: Kit/Specimen SENT
[2021-03-15 22:07] LABS: Gliadin (Deamidated) Ab, IgA <10.0 U
[2021-03-15 22:32] LABS: Gliadin (Deamidated) Ab, IgG <10.0 U
[2021-03-24 14:07] LABS: Misc Referral (MAYO) See Comments
== END 2021-03-12 02:59 | disposition home or self-care (01) ==
PROVIDERS: PCP Nurse Practitioner Family; Visit Provider Naturopath
DX: K90.49 Malabsorption due to intolerance, not elsewhere classified (principal); L28.2 Other prurigo
CPT/HCPCS: 36415; 83516; 86001; 86003

== ENCOUNTER 2021-06-01 02:59 | Outpatient (CLI) | payer OTHER, SELFPAY ==
[2021-06-01 07:22] LABS: Abs Immature Grans 0.03 10^3/uL (0.0-0.06); Absolute Basophil Count 0.11 10^3/uL (0.0-0.2); Absolute Eosinophil Count 0.23 10^3/uL (0.0-0.7); Absolute Monocyte Count 0.89 10^3/uL (0.1-0.8); Absolute Neutrophil Count 5.35 10^3/uL (1.2-6.7); Eosinophils % 2.2; HCT 36.4 % (36.0-46.0); Immature Grans % 0.3; Lymphocytes % 37.7; MCH 31.4 pg (27.0-33.0); MCV 95.3 fL (80-95); MPV 9.7 fL (8.0-11.0); Monocytes % 8.4; Neutrophils % 50.4; Nucleated RBC 0 %; Platelet Count 344 10^3/uL (130-400); RBC 3.82 10^6/uL (3.93-5.22); RDW-SD 45.3 fL; WBC 10.61 10^3/uL (4.4-10.8)
[2021-06-01 10:09] LABS: ALT 20 U/L (14-59); AST 12 U/L (15-37); Albumin 3.2 g/dL (3.4-5.0); Alkaline Phosphatase 101 U/L (46-116); Anion Gap 11.1 mmol/L (3-11); BUN 12 mg/dL (7-18); Bilirubin, Total 0.4 mg/dL (0.2-1.0); CO2 25.9 mmol/L (21.0-32.0); CREATININE 0.7 mg/dL (0.55-1.02); Calcium 8.6 mg/dL (8.5-10.1); Chloride 105 mmol/L (98-107); Glucose 75 mg/dL (74-106); Magnesium 2.1 mg/dL (1.8-2.4); PHOSPHORUS 3.6 mg/dL (2.6-4.7); Potassium 3.6 mmol/L (3.5-5.1); Sodium 142 mmol/L (136-145); Total Protein 6.8 g/dL (6.4-8.2)
== END 2021-06-01 03:00 | disposition home or self-care (01) ==
LOC: LBO 03:00
PROVIDERS: PCP Nurse Practitioner Family; Visit Provider Internal Medicine
DX: M06.09 Rheumatoid arthritis without rheumatoid factor, multiple sites (principal); E78.5 Hyperlipidemia, unspecified; R53.83 Other fatigue
CPT/HCPCS: 36415; 80053; 83735; 84100; 85025

== ENCOUNTER 2021-09-14 00:22 | Outpatient (CLI) | payer OTHER, SELFPAY ==
--- NOTE | 2021-09-14 09:30 | DI.MAMMO_ITS ---
Exam(s) MG MAMMO SCREENING 60 MIN DUR EXAM: MG MAMMO SCREENING 60 MIN DUR CLINICAL HISTORY: SCREENING, Z12.39; FAMILY H/O BREAST CA, Z80.3 TECHNIQUE: Mammograms were interpreted according to the usual protocol including computer analysis w [employer] CAD system, tomosynthesis and C-view imaging. COMPARISON: 2011 through 2020 FINDINGS: The breasts are composed of heterogeneously dense fibroglandular densities, Breast Density category C . There are bilateral subglandular implants. There is peripheral calcification of the surrounding the implant, right greater than left. No suspicious masses or suspicious microcalcifications are seen. No skin thickening or abnormal axillary lymph nodes are seen. There has been no significant change from prior exams. IMPRESSION: BI-RADS Category 1, Negative mammogram. Stable appearance of bilateral breast implants. Yearly screening mammography is recommended. Breast Density Category C, heterogeneously Dense. The mammogram demonstrates the patient's breast tissue is dense. Dense breast tissue is very common a nd is not abnormal but dense breast tissue can make it harder to find cancer on a mammogram. Also, de nse breast tissue may increase breast cancer risk. This information about the result of the mammogram report was provided to the patient to raise their awareness. Use this report when you speak with the patient about their risks for breast cancer, which includes their family history. At that time, you may recommend additional screening tests (Ultrasound or MRI) as they might be useful based on their r isk. A negative radiographic report should not delay biopsy if a dominant or clinically suspicious mass is present. Up to ten percent of cancers are not identified on mammography. A negative report may reinforce clinical impression. Adenosis and dense breasts may obscure an underlying neoplasm. False positive reports average 6 to 10%.
== END 2021-09-14 00:42 ==
PROVIDERS: PCP Nurse Practitioner Family; Visit Provider Nurse Practitioner Family
DX: Z12.31 Encounter for screening mammogram for malignant neoplasm of breast (principal); Z80.3 Family history of malignant neoplasm of breast; Z98.82 Breast implant status
CPT/HCPCS: 77063; 77067

== ENCOUNTER 2021-10-22 02:09 | Outpatient (CLI) | payer OTHER, SELFPAY ==
[2021-10-22 14:41] LABS: Abs Immature Grans 0.03 10^3/uL (0.0-0.06); Absolute Eosinophil Count 0.52 10^3/uL (0.0-0.7); Absolute Lymphocyte Count 3.15 10^3/uL (1.2-3.4); Absolute Monocyte Count 0.81 10^3/uL (0.1-0.8); Absolute Neutrophil Count 4.15 10^3/uL (1.2-6.7); Basophils % 1.1; Eosinophils % 5.9; HCT 37.5 % (36.0-46.0); Immature Grans % 0.3; MCV 93.8 fL (80-95); MPV 9.8 fL (8.0-11.0); Monocytes % 9.2; Neutrophils % 47.5; Platelet Count 324 10^3/uL (130-400); RDW 14.7 % (11.7-14.6); RDW-SD 51.2 fL; WBC 8.76 10^3/uL (4.4-10.8)
[2021-10-22 15:30] LABS: ALT 23 U/L (14-59); AST 19 U/L (15-37); Albumin 3.4 g/dL (3.4-5.0); Alkaline Phosphatase 115 U/L (46-116); Anion Gap 5.3 mmol/L (3-11); BUN 16 mg/dL (7-18); Bilirubin, Total 0.2 mg/dL (0.2-1.0); CO2 30.7 mmol/L (21.0-32.0); CREATININE 0.8 mg/dL (0.55-1.02); Calcium 8.5 mg/dL (8.5-10.1); Chloride 103 mmol/L (98-107); Glucose 110 mg/dL (74-106); Potassium 4.1 mmol/L (3.5-5.1); Sodium 139 mmol/L (136-145); Total Protein 7.1 g/dL (6.4-8.2)
== END 2021-10-22 02:10 | disposition home or self-care (01) ==
LOC: LBO 02:10
PROVIDERS: PCP Nurse Practitioner Family; Visit Provider Internal Medicine
DX: M06.09 Rheumatoid arthritis without rheumatoid factor, multiple sites (principal)
CPT/HCPCS: 36415; 80053; 85025

== ENCOUNTER 2021-12-31 17:14 | Emergency (ER) | payer OTHER, SELFPAY ==
[2021-12-31] VITALS (14 sets, daily range): BP systolic 159–197; BP diastolic 74–88; PULSE 76–90; RESP 9–19; TEMP 37.6; O2SAT 92–98
--- NOTE | 2021-12-31 17:15 | DI.RAD_ITS ---
Exam(s) XR PORTABLE CHEST AP EXAM: XR PORTABLE CHEST AP CLINICAL HISTORY: pui, epigastric pain, eval for covid. TECHNIQUE: 2D digital imaging was performed. COMPARISON: CR CHEST 2 VIEWS PA,LAT from 06/13/2017 CT CHEST WITH CONTRAST from 06/20/2017 CR,XR XR ABDOMEN FLAT UPRIGHT from 12/25/2020 FINDINGS: Single AP portable view. Heart size is upper normal. The mediastinum is not widened. Lungs are clear. No infiltrates nor obvious pleural effusions. Breast implants noted. There is capsular calcification of the right breast implant. IMPRESSION: No acute pulmonary findings on this single AP portable view of the chest. Breast implants noted DATA REPOSITORY: RADIATION DOSE DELIVERED: All CT scans at this facility use at least one of these dose optimization techniques: automated exposure control; mA and/or kV adjustment per patient size (includes targeted e xams where dose is matched to clinical indication); or iterative reconstruction.
--- NOTE | 2021-12-31 17:15 | RT.EKG_ITS ---
APPROVED REPORT Exam: Resting ECG Reason for Exam: CHEST PAIN Patient Location: E HR:84 bpm ECG Measurements Heart Rate 84 AXIS AL 195 P 45 QRSd 84 QRS 55 QT 391 T 41 QTc 462 Conclusion Sinus rhythm...normal P axis, V-rate 60- 99 Consider left ventricular hypertrophy...(S V1+R V5/V6) >3.25mV Physician: Sinus rhythm, rate 84, no significant ST elevations or depressions. No STEMI.
[2021-12-31] MEDS: Normal Saline 1,000 ML 1000 ML IV (17:43)
[2021-12-31] MEDS: ACETAMINOPHEN 1,000 MG/100 ML BTL 400 MG IVPB (17:43)
[2021-12-31 17:49] LABS: Abs Immature Grans 0.01 10^3/uL (0.0-0.06); Absolute Basophil Count 0.08 10^3/uL (0.0-0.2); Absolute Eosinophil Count 0.32 10^3/uL (0.0-0.7); Absolute Lymphocyte Count 0.72 10^3/uL (1.2-3.4); Absolute Monocyte Count 0.89 10^3/uL (0.1-0.8); Absolute Neutrophil Count 4.23 10^3/uL (1.2-6.7); Basophils % 1.3; Eosinophils % 5.1; HCT 35.2 % (36.0-46.0); HGB 11.6 g/dL (11.2-15.7); Immature Grans % 0.2; Lymphocytes % 11.5; MCH 30.7 pg (27.0-33.0); MCV 93 fL (80-95); MPV 9.8 fL (8.0-11.0); Monocytes % 14.2; Neutrophils % 67.7; Platelet Count 281 10^3/uL (130-400); RBC 3.78 10^6/uL (3.93-5.22); RDW-SD 50.8 fL; WBC 6.25 10^3/uL (4.4-10.8)
[2021-12-31 18:02] LABS: ALT 21 U/L (14-59); AST 16 U/L (15-37); Albumin 3.4 g/dL (3.4-5.0); Alkaline Phosphatase 110 U/L (46-116); Anion Gap 7.4 mmol/L (3-11); BUN 19 mg/dL (7-18); Bilirubin, Total 0.2 mg/dL (0.2-1.0); CO2 25.6 mmol/L (21.0-32.0); CREATININE 0.8 mg/dL (0.55-1.02); Calcium 8.5 mg/dL (8.5-10.1); Chloride 101 mmol/L (98-107); Glucose 136 mg/dL (74-106); Lipase 123 U/L (73-393); Potassium 3.8 mmol/L (3.5-5.1); Sodium 134 mmol/L (136-145); Total Protein 7.5 g/dL (6.4-8.2); Troponin I < 50 ng/L (<or=60)
[2021-12-31 18:18] LABS: Influenza A PCR Negative (Negative); Influenza B PCR Negative (Negative); RSV PCR Negative (Negative)
[2021-12-31 18:21] LABS: COVID-19 PCR Positive (Negative)
[2021-12-31 18:32] LABS: Bilirubin Negative (Negative); Blood Small (Negative); Clarity Clear (Clear); Glucose Negative (Negative); Ketones Negative (Negative); Leukocyte Esterase Negative (Negative); Nitrite Negative (Negative); Specific Gravity 1.025 (1.005-1.025); Urobilinogen 0.2 EU/dL (Up TO 0.2)
[2021-12-31 18:39] LABS: Bacteria Negative HPF (Negative); C & S Indicated? No; Casts Negative LPF (Negative); Crystals Negative HPF (Negative); Epithelial Cells Few HPF (Negative); Mucus Negative (Negative); WBC 0-2 HPF (0-5)
--- NOTE | 2021-12-31 18:48 | DI.VRAD_ITS ---
PROCEDURE INFORMATION: Exam: XR Chest Exam date and time: 12/31/2021 6:05 PM Age: 66 years old Clinical indication: Other: Pui, epigastric pain, eval for covid TECHNIQUE: Imaging protocol: Radiologic exam of the chest. Views: 1 view. COMPARISON: CT CHEST WITH CONTRAST 06/20/2017 3:05 PM FINDINGS: Lungs: Mild patchy lower lung zone parenchymal opacities may represent interstitial and alveolar airspace disease; this may be accentuated by chest wall soft tissues. Differential includes pneumonia and less likely, parenchymal masses. Pleural spaces: Unremarkable. No pleural effusion. No pneumothorax. Heart/Mediastinum: Unremarkable. No cardiomegaly. Vasculature: Tortuous atheromatous aorta. Bones/joints: Degenerative change of the spine. Soft tissues: Increased density of the lower chest felt to be related overlying soft tissues. IMPRESSION: Mild patchy lower lung zone parenchymal opacities may represent interstitial and alveolar airspace disease, and may be accentuated by chest wall soft tissues. Differential includes pneumonia and less likely, parenchymal masses. Advise follow-up to resolution or chest CT correlation Dictated and Authenticated by: Opal King MD. Ordering:ANDRES Rabago MD
--- NOTE | 2021-12-31 19:04 | ED.GENADUL_ITS ---
Discharge Plan Disposition Patient Disposition: HOME Condition: Good Discharge Details Clinical Impression: COVID-19, Pneumonia, Lesion of lung Primary Care Provider: Kriss Rodriguez ED Provider: Hima Lazaro Home Meds and New Rx's Prescriptions: New doxycycline hyclate 100 mg tablet 100 mg PO BID Qty: 20 0RF Continued calcium carbonate [Antacid (calcium carbonate)] 200 mg calcium (500 mg) tablet,chewable 600 mg PO BID methotrexate sodium 2.5 mg tablet 2.5 mg PO QWEEK hydroxychloroquine 200 mg tablet 200 mg PO DAILY oxybutynin chloride [Ditropan XL] 5 mg tablet extended release 24hr 5 mg PO DAILY cholecalciferol (vitamin D3) 1,000 UNIT capsule 1,000 unit PO BID diltiazem HCl 120 MG tablet 240 mg PO HS quinapril 40 mg tablet 40 mg PO DAILY multivitamin [Multi-Day] 1 EACH tablet 1 ea PO DAILY acetaminophen [Mapap Extra Strength] 500 MG tablet 1,000 mg PO TID Qty: 180 0RF folic acid 1 mg tablet 2 mg PO DAILY Discharge Instructions Instructions: Pneumonia (ED), COVID-19 (Coronavirus Disease 2019) (ED) Additional Instructions: At this time you are COVID-positive. Thankfully the remainder of your laboratory work-up is otherwise normal and reassuring. Please stay well- hydrated and rest for the next 2 to 3 days. Your chest x-ray does show evidence of a mild opacity/potential mild pneumonia. We will treat with doxycycline the antibiotic for this. This is been sent to your pharmacy on file at [facility]. Do not take antacids/calcium carbonate while on doxycycline as it can interact and make it less effective. Make sure to take doxycycline on a full stomach as it can cause nausea and vomiting otherwise. Your skin will be more sensitive to the sun while on this medication. If you have persistent symptoms or worsening of your symptoms over the next 72 hours then it is important that you follow-up closely with your primary care provider and discuss potential Paxlovid therapy. Monitor your oxygen at home, if you have numbers that drop below 90% while at rest, please return for reevaluation. If you notice any worsening of your symptoms, or any new symptoms such as vomiting, diarrhea, fever, chills, shortness of breath, chest pain, numbness, weakness, or fainting , please return immediately to the emergency department for reevaluation. Please follow up with your primary care provider as soon as possible for reassessment and reevaluation. As always, it was a pleasure participating in your medical care today. Of note the area that does look like pneumonia can sometimes also be similar to a lesion/mass. Please make sure to have repeat imaging in the next few weeks to see if this changes or resolves after therapy. Referrals: Kriss Rodriguez [Primary Care Provider] - Medical Decision Making 66-year-old female with a past medical history of rheumatoid arthritis, hypertension, who works in the [place], who is vaccinated for COVID and boosted x2, presents today for evaluation of runny nose, congestion, mild cough, and an episode of fatigue and nausea epigastric achiness and near syncope that occurred upstairs. Patient states that she was was doing her normal work when the symptoms began. It lasted about 45 minutes. She was brought down to the ER for further assessment. She did not hit her head. She denies any chest pain or chest tearing or ripping sensation. She denies any increased shortness of breath over the last 12 to 24 hours. She does state that she has been around a COVID-positive individual who tested positive this morning. She denies any severe headache or vision changes. She denies any numbness or tingling. She denies any personal history of cardiac disease. No other complaints at this time. No other modifying factors. Exam demonstrates dry mucous membranes. Lungs are clear, vital signs are stable. EKG shows no evidence of STEMI. Neurologic assessment is normal. Symptoms appear clinically inconsistent with stroke. At this time I am concerned for potential COVID as the cause of her symptoms. Cardiac etiology seems less likely given her URI-like symptoms, and dehydration is more concerning. We will get an x-ray, test for COVID, rehydrate, evaluate for concerning etiologies, monitor closely and reassess. 7:53 PM Laboratory work-up has returned, no bandemia, white count, significant left shift. She does have mild lymphopenia which is concerning for viral COVID component. Electrolytes stable. EKG benign. Troponin normal. Urinalysis is negative for abnormality of significance. COVID test was positive. Patient has been rehydrated and she feels much better. We did discuss risks and benefits of potential treatment options which I think she would be a candidate for. Between oral therapy versus monoclonal antibody therapy, the patient has elected for monoclonal antibody therapy at this time. This still leaves the option for oral COVID therapy if she does not improve over the next 24 to 48 hours. Chest x-ray does show evidence of mild patchy lower lung zone parenchymal opacities may be consistent with pneumonia. Symptoms may be a component for MS potentially, although this is clinically less likely and specially in the setting of COVID- 19. Out of an abundance of precaution we will treat the patient with doxycycline as well for treatment of potential bacterial pneumonia. She has a pulse oximeter at home to continue to monitor her symptoms. I have recommended to the patient that she get a repeat chest x-ray or CT scan after her COVID symp toms resolved. We will give a dose of doxycycline here. Monoclonal antibody therapy will be started here. I did offer to the patient that he could inform certain individuals from the OR staff that she was positive. 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 I have extensively reviewed the treatment plan and discharge instructions with the patient. I have addressed all patient concerns at this time. The patient was made aware of what symptoms to monitor for that would warrant a return to the emergency department. Discussed the plan with the patient, they demonstrate verbal understanding and agreement with our assessment and plan at this time. The documentation in this chart was dictated using [employer] dictation software. Please excuse any dictation errors. EKG 17: 20 Sinus rhythm, rate 84, no significant ST elevations or depressions. No STEMI. FINDINGS: Lungs: Mild patchy lower lung zone parenchymal opacities may represent interstitial and alveolar airspace disease; this may be accentuated by chest wall soft tissues. Differential includes pneumonia and less likely, parenchymal masses. Pleural spaces: Unremarkable. No pleural effusion. No pneumothorax. Heart/Mediastinum: Unremarkable. No cardiomegaly. Vasculature: Tortuous atheromatous aorta. Bones/joints: Degenerative change of the spine. Soft tissues: Increased density of the lower chest felt to be related overlying soft tissues. IMPRESSION: Mild patchy lower lung zone parenchymal opacities may represent interstitial and alveolar airspace disease, and may be accentuated by chest wall soft tissues. Differential includes pneumonia and less likely, parenchymal masses. Advise follow-up to resolution or chest CT correlation Thank you for allowing us to participate in the care of your patient Dictated and Authenticated by: Opal King DO 12/31/2021 6:48 PM Eastern Time ([place] & [place]) HPI General Date/Time Provider Initiated Documentation: 12/31/21 17:27 . HPI Narrative: 66-year-old female with a past medical history of rheumatoid arthritis, hypertension, who works in the [place], who is vaccinated for COVID and boosted x2, presents today for evaluation of runny nose, congestion, mild cough, and an episode of fatigue and nausea epigastric achiness and near syncope that occurred upstairs. Patient states that she was was doing her normal work when the symptoms began. It lasted about 45 minutes. She was brought down to the ER for further assessment. She did not hit her head. She denies any chest pain or chest tearing or ripping sensation. She denies any increased shortness of breath over the last 12 to 24 hours. She does state that she has been around a COVID-positive individual who tested positive this morning. She denies any severe headache or vision changes. She denies any numbness or tingling. She denies any personal history of cardiac disease. No other complaints at this time. No other modifying factors. Related Data Home Medications Medication Instructions Recorded Confirmed cholecalciferol (vitamin D3) 25 1,000 unit PO BID 11/05/13 12/31/21 mcg (1,000 unit) capsule multivitamin (Multi-Day tablet) 1 ea PO DAILY 02/04/15 12/31/21 diltiazem HCl 120 mg tablet 240 mg PO HS 07/16/15 12/31/21 acetaminophen 500 mg tablet (Mapap 1,000 mg PO TID #180 tabs 06/02/16 12/31/21 Extra Strength) calcium carbonate 200 mg calcium 600 mg PO BID 06/12/20 12/31/21 (500 mg) chewable tablet (Antacid (calcium carbonate)) hydroxychloroquine 200 mg tablet 200 mg PO DAILY 06/12/20 12/31/21 methotrexate sodium 2.5 mg tablet 2.5 mg PO QWEEK 06/12/20 12/31/21 oxybutynin chloride 5 mg 5 mg PO DAILY 06/12/20 12/31/21 tablet,extended release 24 hr (Ditropan XL) folic acid 1 mg tablet 2 mg PO DAILY 06/22/20 12/31/21 quinapril 40 mg tablet 40 mg PO DAILY 08/20/20 12/31/21 doxycycline hyclate 100 mg tablet 100 mg PO BID #20 tabs 12/31/21 Previous Rx's Medication Instructions Recorded acetaminophen 500 mg tablet (Mapap 1,000 mg PO TID #180 tabs 06/02/16 Extra Strength) doxycycline hyclate 100 mg tablet 100 mg PO BID #20 tabs 12/31/21 Allergies Allergy/AdvReac Type Severity Reaction Status Date / Time hylan G-F 20 [From [employer]] AdvReac Severe extreme Unverified 12/31/21 17:21 pain/swelling General Stated Complaint: Dizzy/Sync RAINER: 3 Review of Systems All systems reviewed & are unremarkable except as noted in HPI and below PFSH All Active Problems COVID-19 (Acute) Pneumonia (Acute) Lesion of lung (Acute) Encounter for screening laboratory testing for COVID-19 virus (Acute) Obstipation (Acute) Uterine fibroid (Acute) Abdominal pain in female (Acute) Low back pain (Acute) History of total knee replacement (Acute) Left Diarrhea (Acute) Constipation (Acute) Arthritis of right subtalar joint (Chronic) Arthritis of right foot (Chronic) Medical History HARISH positive Anxiety Arthritis Arthritis of carpometacarpal (CMC) joint of right thumb Benign hypertension 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) Family history of breast cancer Family history of malignant melanoma Hepatic cyst History of colon polyps Hypertension Menopausal symptoms Microcytic anemia Primary osteoarthritis of left knee [place] [facility] [place] History of bunionectomy of left great toe Normal colonoscopy (~06/2020) Social History Smoking/Tobacco Use Status: Never Smoking risk assessment performed?: Yes Alcohol Intake: current Alcohol Intake frequency: holidays/special occasions only Drug use: Never Substance use type: does not use Household members: significant other Housing: house Number of Children: 1 Do you feel safe at home: Yes Do you feel safe in your relationship?: Yes Female Reproductive History Menstrual Menopause type: natural (August 2013) Exam Narrative Exam Narrative: 1.Const: Well-nourished, Well-developed, appearing stated age 2.Eyes: PERRL, no conjunctival injection, and symmetrical lids. 3.ENT: Atraumatic external nose and ears. Notably dry MM. Neck: Symmetric, trachea midline, No thyromegaly. 4.CVS: +S1/S2, No murmurs or gallops. Peripheral pulses 2+ and equal in all extremities. Brisk capillary refill in all extremities. 5.RESP: Unlabored respiratory effort. Clear to auscultation bilaterally. No wheezes rales or rhonchi 6.GI: Soft, Nontender/Nondistended, No hepatosplenomegaly. No guarding or rebound. 7.MSK: Normocephalic/Atraumatic, Extremities w/o deformity or ttp No cyanosis or clubbing, Normal movement of all extremities 8.Skin: Warm, Dry. No rashes or lesions. 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 Sensation grossly intact, no focal neurologic deficits. No dysdiadochokinesia or dysmetria. 10.Psych: (AAO) x3. Appropriate mood and affect Course Vital Signs Vital signs: Vital Signs Temperature 37.6 C 12/31/21 17:15 Pulse 90 12/31/21 17:15 Respiratory Rate 14 12/31/21 17:15 Blood Pressure 197/87 H 12/31/21 17:15 Pulse Oximetry 98 12/31/21 17:15 Temperature 37.6 C 12/31/21 17:15 Temperature Source Temporal Artery Scan 12/31/21 17:15 Pulse 90 12/31/21 17:15 Respiratory Rate 14 12/31/21 17:15 Respiratory Effort Non-Labored 12/31/21 17:23 Respiratory Depth Normal 12/31/21 17:23 Respiratory Pattern Normal 12/31/21 17:23 Blood Pressure 197/87 H 12/31/21 17:15 Blood Pressure Position Supine 12/31/21 17:15 Pulse Oximetry 98 12/31/21 17:15 Oxygen Delivery Method Room Air 12/31/21 17:15 Oxygen Flow Rate 0 12/31/21 17:15 Pain Level 0 12/31/21 17:15 Lab/Test Results Lab/Test Results: Laboratory Tests Range/Units 12/31/21 12/31/21 12/31/21 17:31 17:31 17:34 WBC (4.4-10.8) 10^3/uL 6.25 RBC (3.93-5.22) 10^6/uL 3.78 L Hgb (11.2-15.7) g/dL 11.6 Hct (36.0-46.0) % 35.2 L MCV (80-95) fL 93 MCH (27.0-33.0) pg 30.7 MCHC (32.0-36.0) % 33.0 RDW (11.7-14.6) % 15.0 H Plt Count (130-400) 10^3/uL 281 MPV (8.0-11.0) fL 9.8 Immature Gran % 0.2 Neutrophils % 67.7 Lymphocytes % 11.5 Monocytes % 14.2 Eosinophils % 5.1 Basophils % 1.3 Nucleated RBC % (0.0-0.3) % 0.0 Absolute Neutrophils (1.2-6.7) 10^3/uL 4.23 Absolute Lymphocytes (1.2-3.4) 10^3/uL 0.72 L Absolute Monocytes (0.1-0.8) 10^3/uL 0.89 H Absolute Eosinophils (0.0-0.7) 10^3/uL 0.32 Absolute Basophils (0.0-0.2) 10^3/uL 0.08 Sodium (136-145) mmol/L 134 L Potassium (3.5-5.1) mmol/L 3.8 Chloride (98-107) mmol/L 101 Carbon Dioxide (21.0-32.0) mmol/L 25.6 Anion Gap (3-11) mmol/L 7.4 BUN (7-18) mg/dL 19 H Creatinine (0.55-1.02) mg/dL 0.8 Estimated GFR/1.73 m2 (mL/min/1.73m2) >= 60.00 Glucose (74-106) mg/dL 136 H Calcium (8.5-10.1) mg/dL 8.5 Total Bilirubin (0.2-1.0) mg/dL 0.2 AST (15-37) U/L 16 ALT (14-59) U/L 21 Alkaline Phosphatase (46-116) U/L 110 Troponin I (<or=60) ng/L < 50 Total Protein (6.4-8.2) g/dL 7.5 Albumin (3.4-5.0) g/dL 3.4 Lipase (73-393) U/L 123 Urine Color (Yellow) Urine Clarity (Clear) Urine pH (5-8) Ur Specific [place] (1.005-1.025) Urine Protein (Negative) mg/dL Urine Ketones (Negative) mg/dL Urine Blood (Negative) Urine Nitrite (Negative) Urine Bilirubin (Negative) Urine Urobilinogen (Up TO 0.2) EU/dL Ur Leukocyte Esterase (Negative) Urine RBC (0-2) HPF Urine WBC (0-5) HPF Ur Epithelial Cells (Negative) HPF Urine Crystals (Negative) HPF Urine Bacteria (Negative) HPF Urine Casts (Negative) LPF Urine Mucus (Negative) Ur Culture Indicated? Urine Glucose (Negative) mg/dL COVID-19 Source Not Applicable SARS-CoV-2 (PCR) (Negative) Positive A Influenza Type A (PCR) (Negative) Negative Influenza Type B (PCR) (Negative) Negative RSV (PCR) (Negative) Negative Range/Units 12/31/21 18:20 WBC (4.4-10.8) 10^3/uL RBC (3.93-5.22) 10^6/uL Hgb (11.2-15.7) g/dL Hct (36.0-46.0) % MCV (80-95) fL MCH (27.0-33.0) pg MCHC (32.0-36.0) % RDW (11.7-14.6) % Plt Count (130-400) 10^3/uL MPV (8.0-11.0) fL Immature Gran % Neutrophils % Lymphocytes % Monocytes % Eosinophils % Basophils % Nucleated RBC % (0.0-0.3) % Absolute Neutrophils (1.2-6.7) 10^3/uL Absolute Lymphocytes (1.2-3.4) 10^3/uL Absolute Monocytes (0.1-0.8) 10^3/uL Absolute Eosinophils (0.0-0.7) 10^3/uL Absolute Basophils (0.0-0.2) 10^3/uL Sodium (136-145) mmol/L Potassium (3.5-5.1) mmol/L Chloride (98-107) mmol/L Carbon Dioxide (21.0-32.0) mmol/L Anion Gap (3-11) mmol/L BUN (7-18) mg/dL Creatinine (0.55-1.02) mg/dL Estimated GFR/1.73 m2 (mL/min/1.73m2) Glucose (74-106) mg/dL Calcium (8.5-10.1) mg/dL Total Bilirubin (0.2-1.0) mg/dL AST (15-37) U/L ALT (14-59) U/L Alkaline Phosphatase (46-116) U/L Troponin I (<or=60) ng/L Total Protein (6.4-8.2) g/dL Albumin (3.4-5.0) g/dL Lipase (73-393) U/L Urine Color (Yellow) Yellow Urine Clarity (Clear) Clear Urine pH (5-8) 7.0 Ur Specific [place] (1.005-1.025) 1.025 Urine Protein (Negative) mg/dL Negative Urine Ketones (Negative) mg/dL Negative Urine Blood (Negative) Small H Urine Nitrite (Negative) Negative Urine Bilirubin (Negative) Negative Urine Urobilinogen (Up TO 0.2) EU/dL 0.2 Ur Leukocyte Esterase (Negative) Negative Urine RBC (0-2) HPF 5-10 H Urine WBC (0-5) HPF 0-2 Ur Epithelial Cells (Negative) HPF Few Urine Crystals (Negative) HPF Negative Urine Bacteria (Negative) HPF Negative Urine Casts (Negative) LPF Negative Urine Mucus (Negative) Negative Ur Culture Indicated? No Urine Glucose (Negative) mg/dL Negative COVID-19 Source SARS-CoV-2 (PCR) (Negative) Influenza Type A (PCR) (Negative) Influenza Type B (PCR) (Negative) RSV (PCR) (Negative) PAWSS Have you Been Recently Intoxicated or Drunk Within the Last 30 days?: No Have you Ever Experienced Previous Episodes of Alcohol Withdrawal?: No Have you ever Experienced Withdrawal Seizures?: No Have you ever Experienced Delirium Tremens(DT)s?: No Have you ever undergone Alcohol Rehabilitation Treatment (i.e, inpt ot outpatient treatment programs)?: No Have you ever Experienced Blackouts?: No Have you ever Combined Alcohol with other Downers within the last 90 days?: No Have you ever Combined Alcohol with any other Substance of Abuse during the last 90 days?: No Positive Blood Alcohol level on Presentation? [PCS.BAL]: No Evidence of Increased Autonomic Activity (i.e. HR>120, tremor, sweating, agitation, nausea)?: No Result: 0
[2021-12-31] MEDS: Doxycycline Hyclate 100 MG, 2 CAPS/BTL PO (19:28)
== END 2021-12-31 20:02 | disposition home or self-care (01) ==
PROVIDERS: Emergency Provider Student in an Organized Health Care Education/Training Program; PCP Nurse Practitioner Family
DX: U07.1 COVID-19 (principal); J12.82 Pneumonia due to coronavirus disease 2019; R91.1 Solitary pulmonary nodule; I10 Essential (primary) hypertension
CPT/HCPCS: 36415; 80053; 83690; 87637; 93005; 96361; 96365; 96375; 99284; Q0222; 71045; 81003; 81015; 84484; 85025; 93010; J0131

== ENCOUNTER 2022-01-18 13:24 | Outpatient (CLI) | payer OTHER, SELFPAY ==
[2022-01-18 13:38] LABS: Abs Immature Grans 0.01 10^3/uL (0.0-0.06); Absolute Basophil Count 0.07 10^3/uL (0.0-0.2); Absolute Eosinophil Count 0.43 10^3/uL (0.0-0.7); Absolute Lymphocyte Count 3.19 10^3/uL (1.2-3.4); Absolute Monocyte Count 0.59 10^3/uL (0.1-0.8); Absolute Neutrophil Count 4.85 10^3/uL (1.2-6.7); Basophils % 0.8; Eosinophils % 4.7; HCT 35.7 % (36.0-46.0); HGB 11.7 g/dL (11.2-15.7); Immature Grans % 0.1; Lymphocytes % 34.9; MCHC 32.8 % (32.0-36.0); MCV 94 fL (80-95); MPV 9.4 fL (8.0-11.0); Monocytes % 6.5; Platelet Count 313 10^3/uL (130-400); RBC 3.78 10^6/uL (3.93-5.22); RDW 14.7 % (11.7-14.6); RDW-SD 50.7 fL; WBC 9.14 10^3/uL (4.4-10.8)
[2022-01-18 14:05] LABS: ALT 19 U/L (14-59); AST 19 U/L (15-37); Albumin 3.6 g/dL (3.4-5.0); Alkaline Phosphatase 91 U/L (46-116); Anion Gap 9.4 mmol/L (3-11); BUN 18 mg/dL (7-18); Bilirubin, Total 0.3 mg/dL (0.2-1.0); CO2 27.6 mmol/L (21.0-32.0); CREATININE 0.9 mg/dL (0.55-1.02); Chloride 103 mmol/L (98-107); Glucose 106 mg/dL (74-106); Potassium 4.2 mmol/L (3.5-5.1); Sodium 140 mmol/L (136-145); Total Protein 7.8 g/dL (6.4-8.2)
== END 2022-01-18 13:25 | disposition home or self-care (01) ==
LOC: LBO 13:24
PROVIDERS: PCP Nurse Practitioner Family; Visit Provider Internal Medicine
DX: M06.09 Rheumatoid arthritis without rheumatoid factor, multiple sites (principal)
CPT/HCPCS: 36415; 80053; 85025

== ENCOUNTER → 2022-02-07 02:38 | Outpatient (CLI) | payer OTHER, SELFPAY ==
--- NOTE | 2022-02-07 | DI.RAD_ITS ---
Exam(s) XR CHEST 2V PA LATERAL EXAM: XR CHEST 2V PA LATERAL CLINICAL HISTORY: ABNL CHEST X-RAY, R91.8. TECHNIQUE: 2D digital imaging was performed. COMPARISON: CR,XR XR PORTABLE CHEST AP from 12/31/2021 FINDINGS: 2 views: Heart size is normal. The mediastinum is not widened. Lungs are clear. No infiltrates nor pleural effusions. IMPRESSION: No acute pulmonary findings.No significant change compared to prior study of 12/31/2021 DATA REPOSITORY: RADIATION DOSE DELIVERED:
== END ==
PROVIDERS: PCP Nurse Practitioner Family; Visit Provider Nurse Practitioner Family
DX: R91.8 Other nonspecific abnormal finding of lung field (principal)
CPT/HCPCS: 71046

== ENCOUNTER 2022-02-11 01:20 | Outpatient (CLI) | payer OTHER, SELFPAY ==
[2022-02-11 12:53] LABS: Abs Immature Grans 0.11 10^3/uL (0.0-0.06); Absolute Lymphocyte Count 1.21 10^3/uL (1.2-3.4); Absolute Monocyte Count 0.22 10^3/uL (0.1-0.8); Basophils % 0.1; HCT 35.2 % (36.0-46.0); HGB 11.1 g/dL (11.2-15.7); Immature Grans % 0.7; Lymphocytes % 8.2; MCH 31.2 pg (27.0-33.0); MCHC 31.5 % (32.0-36.0); MCV 99 fL (80-95); MPV 9.7 fL (8.0-11.0); Monocytes % 1.5; Neutrophils % 89.5; Platelet Count 280 10^3/uL (130-400); RBC 3.56 10^6/uL (3.93-5.22); RDW 15.5 % (11.7-14.6); RDW-SD 54.8 fL; WBC 14.76 10^3/uL (4.4-10.8)
[2022-02-11 12:54] LABS: Absolute Basophil Count 0.01 10^3/uL (0.0-0.2); Absolute Neutrophil Count 13.21 10^3/uL (1.2-6.7)
[2022-02-11 13:16] LABS: ALT 22 U/L (14-59); AST 10 U/L (15-37); Albumin 3.2 g/dL (3.4-5.0); Alkaline Phosphatase 90 U/L (46-116); Anion Gap 9.7 mmol/L (3-11); BUN 17 mg/dL (7-18); Bilirubin, Total 0.3 mg/dL (0.2-1.0); CO2 27.3 mmol/L (21.0-32.0); CREATININE 0.9 mg/dL (0.55-1.02); Calcium 8.3 mg/dL (8.5-10.1); Chloride 106 mmol/L (98-107); Glucose 156 mg/dL (74-106); Potassium 4.2 mmol/L (3.5-5.1); Sodium 143 mmol/L (136-145)
== END 2022-02-11 01:21 | disposition home or self-care (01) ==
LOC: LBO 01:21
PROVIDERS: PCP Nurse Practitioner Family; Visit Provider Internal Medicine
DX: M06.09 Rheumatoid arthritis without rheumatoid factor, multiple sites (principal)
CPT/HCPCS: 36415; 80053; 85025; 86140

== ENCOUNTER 2022-02-28 10:39 | Outpatient (CLI) | payer OTHER, SELFPAY ==
--- NOTE | 2022-02-28 10:00 | DI.RAD_ITS ---
Exam(s) XR ANKLE RT COMPLETE EXAM: XR ANKLE RT COMPLETE CLINICAL HISTORY: follow up. TECHNIQUE: 2D digital imaging was performed of the right ankle. Images were obtained. AP, latera l and oblique views were obtained. COMPARISON: CR XR ANKLE RT 2V from 04/06/2018 FINDINGS: BONES: No acute fracture is present. No bony destructive lesion is seen. There is a stable plantar c alcaneal spur. JOINTS: The ankle mortise is normally aligned. Moderately severe degenerative changes are now seen in the tarsal bones. This has progressed since the prior examination. Mild spurring is seen at the an terior ankle. SOFT TISSUE: Normal. IMPRESSION: Progressive degenerative changes seen in the foot and ankle. DATA REPOSITORY: RADIATION DOSE DELIVERED:
--- NOTE | 2022-02-28 10:15 | DI.RAD_ITS ---
Exam(s) XR FOOT RT COMPLETE EXAM: XR FOOT RT COMPLETE CLINICAL HISTORY: follow up. TECHNIQUE: 2D digital imaging was performed of the right foot. Three images were obtained. AP, obl ique and lateral views were obtained. COMPARISON: CR XR foot RT complete from 04/06/2018 FINDINGS: BONES: No acute fracture is present. No bony destructive lesion is seen. There is a small plantar eryn caneal spur. JOINTS: No dislocation present. There are moderately severe degenerative changes in the foot which engle ve progressed since the prior examination. The findings are most marked in the tarsal bones. There is a mild hallux valgus deformity. SOFT TISSUE: There is mild soft tissue swelling of the foot. IMPRESSION: Moderately severe degenerative changes of the foot which have progressed since 04/06/2018. DATA REPOSITORY: RADIATION DOSE DELIVERED:
== END 2022-02-28 10:40 | disposition home or self-care (01) ==
LOC: DIORS 10:39
PROVIDERS: PCP Nurse Practitioner Family; Referring Provider Nurse Practitioner Family; Visit Provider Physician Assistant Surgical
DX: M19.071 Primary osteoarthritis, right ankle and foot (principal)
CPT/HCPCS: 73610; 73630

== ENCOUNTER 2022-06-07 14:02 | Outpatient (REF) | payer MEDICARE, SELFPAY ==
[2022-06-07 15:08] LABS: Iron 69 ug/dL (50-170); Total Iron Binding Capacity 283 ug/dL (250-450); Transferrin Sat 24 % (15-50)
[2022-06-07 15:28] LABS: Vitamin D 25 Total 58.8 ng/mL (30-100)
[2022-06-07 15:33] LABS: Calculated LDL 101 mg/dL (<100); Cholesterol 192 mg/dL (<200); Ferritin 72 ng/mL (8-252); HDL Cholesterol 81 mg/dL (40-60); Triglyceride 51 mg/dL (<150); Vitamin B12 643 pg/mL (193-986)
[2022-06-07 15:46] LABS: PHOSPHORUS 3.8 mg/dL (2.6-4.7)
== END 2022-06-07 14:03 | disposition home or self-care (01) ==
LOC: NCHCN 14:02
PROVIDERS: PCP Nurse Practitioner Family; Visit Provider Nurse Practitioner Family
DX: I10 Essential (primary) hypertension (principal); M85.88 Other specified disorders of bone density and structure, other site; E78.5 Hyperlipidemia, unspecified; R19.8 Other specified symptoms and signs involving the digestive system and abdomen; R73.9 Hyperglycemia, unspecified; F41.9 Anxiety disorder, unspecified
CPT/HCPCS: 80061; 82306; 82607; 82728; 83540; 83550; 83735; 84100

== ENCOUNTER 2022-07-25 01:32 | Outpatient (CLI) | payer MEDICARE, BC, SELFPAY ==
--- NOTE | 2022-07-25 | DI.US_ITS ---
Exam(s) US SOFT TISSUE HEAD OR NECK EXAM: US SOFT TISSUE HEAD OR NECK CLINICAL HISTORY: SOFT TISSUE SWELLING R22.9, ABTERIOR NECK SWELLING LEFT MORE THAN RIGHT. TECHNIQUE: Ultrasound was performed using standard protocol. COMPARISON: No exams were available for comparison FINDINGS: Sonographic assessment utilizing grayscale and color Doppler imaging was performed and targeted to th e area of clinical concern. Both submandibular glands were scanned. There is no evidence of drainable fluid collection or ductal dilatation. Bilateral cervical lymph nodes are noted. There is enlarged lymph node on the left beba suring 2.7 cm in length. There are no suspicious features. IMPRESSION: Unremarkable submandibular glands. Enlarged left cervical lymph node. DATA REPOSITORY:
== END 2022-07-25 01:52 ==
PROVIDERS: PCP Nurse Practitioner Family; Visit Provider Internal Medicine
DX: R59.0 Localized enlarged lymph nodes (principal)
CPT/HCPCS: 76536

== ENCOUNTER 2022-09-15 01:12 | Outpatient (CLI) | payer MEDICARE, BC, SELFPAY ==
--- NOTE | 2022-09-15 11:22 | DI.MAMMO_ITS ---
Exam(s) MAMMO SCREENING 60 MIN DUR EXAM: MAMMO SCREENING 60 MIN DUR CLINICAL HISTORY: SCREENING, Z12.39; [facility], Z00.00 TECHNIQUE: Mammograms were interpreted according to the usual protocol including computer analysis w [employer] CAD system, tomosynthesis and C-view imaging. COMPARISON: 2012 through 2021 FINDINGS: The breasts are composed of heterogeneously dense fibroglandular densities, Breast Density category C . Bilateral breast implants again noted capsular calcification, right greater than left. No suspicious masses or suspicious microcalcifications are seen. No skin thickening or abnormal axillary lymph nodes are seen. There has been no significant change from prior exams. IMPRESSION: BI-RADS Category 1, Negative mammogram. Yearly screening mammography is recommended. Breast Density Category C, heterogeneously Dense. The mammogram demonstrates the patient's breast tissue is dense. Dense breast tissue is very common a nd is not abnormal but dense breast tissue can make it harder to find cancer on a mammogram. Also, de nse breast tissue may increase breast cancer risk. This information about the result of the mammogram report was provided to the patient to raise their awareness. Use this report when you speak with the patient about their risks for breast cancer, which includes their family history. At that time, you may recommend additional screening tests (Ultrasound or MRI) as they might be useful based on their r isk. A negative radiographic report should not delay biopsy if a dominant or clinically suspicious mass is present. Up to ten percent of cancers are not identified on mammography. A negative report may reinforce clinical impression. Adenosis and dense breasts may obscure an underlying neoplasm. False positive reports average 6 to 10%.
== END 2022-09-15 01:32 ==
LOC: DI 01:14
PROVIDERS: PCP Nurse Practitioner Family; Visit Provider Nurse Practitioner Family
DX: Z12.31 Encounter for screening mammogram for malignant neoplasm of breast (principal); Z98.82 Breast implant status
CPT/HCPCS: 77063; 77067

== ENCOUNTER 2022-10-05 03:16 | Outpatient (CLI) | payer MEDICARE, BC, SELFPAY ==
[2022-10-05 14:12] LABS: Abs Immature Grans 0.01 10^3/uL (0.0-0.06); Absolute Basophil Count 0.08 10^3/uL (0.0-0.2); Absolute Eosinophil Count 0.48 10^3/uL (0.0-0.7); Absolute Lymphocyte Count 3.31 10^3/uL (1.2-3.4); Absolute Monocyte Count 0.68 10^3/uL (0.1-0.8); Absolute Neutrophil Count 4.69 10^3/uL (1.2-6.7); Basophils % 0.9; Eosinophils % 5.2; HCT 34.9 % (36.0-46.0); HGB 11.8 g/dL (11.2-15.7); Immature Grans % 0.1; Lymphocytes % 35.8; MCH 31.5 pg (27.0-33.0); MCHC 33.8 % (32.0-36.0); MCV 93 fL (80-95); MPV 10.2 fL (8.0-11.0); Monocytes % 7.4; Neutrophils % 50.6; Platelet Count 254 10^3/uL (130-400); RBC 3.75 10^6/uL (3.93-5.22); RDW 13.4 % (11.7-14.6); RDW-SD 45.4 fL; WBC 9.25 10^3/uL (4.4-10.8)
[2022-10-05 14:38] LABS: ALT 17 U/L (14-59); AST 15 U/L (15-37); Albumin 3.2 g/dL (3.4-5.0); Alkaline Phosphatase 111 U/L (46-116); Anion Gap 7.6 mmol/L (3-11); BUN 21 mg/dL (7-18); Bilirubin, Total 0.2 mg/dL (0.2-1.0); C-Reactive Protein 0.66 mg/dL (0.0-0.3); CO2 26.4 mmol/L (21.0-32.0); CREATININE 0.8 mg/dL (0.55-1.02); Calcium 8.6 mg/dL (8.5-10.1); Chloride 104 mmol/L (98-107); Estimated GFR 81.21 (mL/min/1.73m2); Glucose 89 mg/dL (74-106); Potassium 3.9 mmol/L (3.5-5.1); Sodium 138 mmol/L (136-145); Total Protein 6.9 g/dL (6.4-8.2)
== END 2022-10-05 03:17 | disposition home or self-care (01) ==
LOC: LBO 03:19
PROVIDERS: PCP Nurse Practitioner Family; Visit Provider Internal Medicine
DX: M06.09 Rheumatoid arthritis without rheumatoid factor, multiple sites (principal)
CPT/HCPCS: 36415; 80053; 85025; 86140

== ENCOUNTER 2023-05-01 19:36 | Inpatient (IN) | payer MEDICARE, BC, SELFPAY ==
[2023-05-01] VITALS (9 sets, daily range): BP systolic 163–215; BP diastolic 72–103; PULSE 71–86; RESP 16–18; TEMP 36.5–36.9; O2SAT 98–99
--- NOTE | 2023-05-01 19:44 | W.ED.GENAD ---
Discharge Plan Disposition Patient Disposition: Admit to [facility] Discharge Details Clinical Impression: Closed left hip fracture Primary Care Provider: Kriss Rodriguez ED Provider: Rigoberto Marlow Meds and New Rx's Prescriptions: No Action calcium carbonate [Antacid (calcium carbonate)] 200 mg calcium (500 mg) tablet,chewable 600 mg PO BID methotrexate sodium 2.5 mg tablet 2.5 mg PO QWEEK hydroxychloroquine 200 mg tablet 200 mg PO DAILY Humira Pen 40 mg/0.8 mL pen injector kit See Rx Instructions subcut .COMPLEX Rx Instructions: inject one - 40 mg/0.8 mL pen every 2 weeks subcut cholecalciferol (vitamin D3) 1,000 UNIT capsule 1,000 unit PO BID diltiazem HCl 120 MG tablet 240 mg PO HS quinapril 40 mg tablet 40 mg PO DAILY Hold Instructions: Pt Stopped/Never Started multivitamin [Multi-Day] 1 EACH tablet 1 ea PO DAILY acetaminophen [Mapap Extra Strength] 500 MG tablet 1,000 mg PO TID Qty: 180 0RF folic acid 1 mg tablet 2 mg PO DAILY ramipril 10 mg capsule 10 mg PO DAILY Medical Decision Making Patient presenting with left hip pain and clinically appears to have a fracture given the amount of pain she is having as well as shortening and external rotation. However, she has been ambulatory on it for 24 hours. Left hip with pelvis x-ray ordered. Called by cath lab radiology technician to review film. Per my read she has femoral neck fracture that appears impacted. 1 view chest x-ray will also be obtained as well as EKG, preop labs. Morphine and Zofran ordered as needed. Will discuss with Ortho and with hospitalist. 1 view chest x-ray without acute cardiopulmonary disease. EKG is sinus rhythm with LVH unchanged from previous. Laboratory studies unremarkable. Orthopedics will see in the morning. Hospitalist to admit tonight. Patient aware of diagnosis and need for admission. Lab Data Lab results reviewed: Yes I reviewed the patient's lab results. ECG Data Attestation: I personally reviewed and interpreted this ECG (s) as follows: Prior ECG tracings: available for review Interpretation: see EKG HPI General Mode of arrival: wheelchair. Date/Time Provider Initiated Documentation: 05/01/23 19:44. Limitations to Documentation: no limitations. Information obtained by: patient. HPI Narrative: Patient presents to ED with left hip pain. Yesterday morning patient was pulled over while walking the dog falling on her left side. She was able to get up and was able to ambulate though with pain and a limp. She denied any head injury. She has had no headache, neurologic change, neck pain, chest pain, shortness of breath, back pain. She was able to ambulate to some degree this morning but as of this afternoon has significant pain and inability to ambulate. Denies any numbness or weakness distally in the left leg. Took some Tylenol this evening and presented to ED for evaluation. Related Data Home Medications Medication Instructions Recorded Confirmed cholecalciferol (vitamin D3) 25 1,000 unit PO BID 11/05/13 05/01/23 mcg (1,000 unit) capsule multivitamin (Multi-Day tablet) 1 ea PO DAILY 02/04/15 05/01/23 diltiazem HCl 120 mg tablet 240 mg PO HS 07/16/15 05/01/23 acetaminophen 500 mg tablet (Mapap 1,000 mg (2 x 500 mg) PO TID #180 06/02/16 05/01/23 Extra Strength) tabs calcium carbonate 200 mg calcium 600 mg PO BID 06/12/20 05/01/23 (500 mg) chewable tablet (Antacid (calcium carbonate)) hydroxychloroquine 200 mg tablet 200 mg PO DAILY 06/12/20 05/01/23 methotrexate sodium 2.5 mg tablet 2.5 mg PO QWEEK 06/12/20 05/01/23 folic acid 1 mg tablet 2 mg PO DAILY 06/22/20 05/01/23 quinapril 40 mg tablet 40 mg PO DAILY 08/20/20 05/01/23 adalimumab 40 mg/0.8 mL See Rx Instructions subcut .COMPLEX 02/28/22 05/01/23 subcutaneous pen kit (Humira Pen) ramipril 10 mg capsule 10 mg PO DAILY 05/01/23 05/01/23 Previous Rx's Medication Instructions Recorded acetaminophen 500 mg tablet (Mapap 1,000 mg (2 x 500 mg) PO TID #180 06/02/16 Extra Strength) tabs Allergies Allergy/AdvReac Type Severity Reaction Status Date / Time ben G-F [address] [[address] [employer]] AdvReac Severe extreme Unverified 05/01/23 19:47 pain/swelling General RAINER: 3 Review of Systems Narrative: per HPI PFSH All Active Problems (Updated 05/01/23 @ 21:02 by Rigoberto Marlow MD) Closed left hip fracture (Acute) Arthritis of ankle, right (Acute) COVID-19 (Acute) Encounter for screening laboratory testing for COVID-19 virus (Acute) Obstipation (Acute) Uterine fibroid (Acute) Abdominal pain in female (Acute) Low back pain (Acute) Diarrhea (Acute) Constipation (Acute) Arthritis of right subtalar joint (Chronic) Arthritis of right foot (Chronic) Medical History 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) History of colon polyps Family history of breast cancer Family history of malignant melanoma Anxiety HARISH positive Hepatic cyst Hypertension Microcytic anemia Arthritis of carpometacarpal (CMC) joint of right thumb Arthritis Menopausal symptoms Surgical History History of total knee replacement Left Normal colonoscopy (~06/2020) History of bunionectomy of left great toe Colonoscopy - [facility] [place] 2009 Social History Smoking/Tobacco Use Status: Never Smoking risk assessment performed?: Yes Alcohol Intake: current Alcohol Intake frequency: holidays/special occasions only Drug use: Never Substance use type: does not use Household members: significant other Housing: house Number of Children: 1 Do you feel safe at home: Yes Do you feel safe in your relationship?: Yes Female Reproductive History Menstrual Menopause type: natural (August 2013) Exam Narrative Exam Narrative: Const: WDWN female in NAD. HEENT: NC/AT. Normal facial exam. Eyes: Normal conjunctiva and sclera. Neck: Supple. Trachea midline. No cervical spine tenderness. Lungs: Normal respiratory effort. Lungs are clear. No chest wall tenderness. Cor: RRR without murmur/gallop. Good distal pulses. GI: Soft. NT/ND. No guarding or rebound. Back: No spinal tenderness. Neuro: A+O x 3. Normal speech, mentation, gait. Cranial nerves II - XII grossly intact. No gross motor or sensory deficit. Ext: No C/C/E. LLE is shortened and externally rotated with significant pain on log rolling of leg. Skin: Warm and dry without rash.
--- NOTE | 2023-05-01 20:00 | DI.RAD_ITS ---
Exam(s) XR HIP LT COMPLETE AP PELVIS CT LOWER EXTREMITY LT WO EXAM: CT LOWER EXTREMITY LT WO and XR hip LT complete/AP pelvis CLINICAL HISTORY: eval Left femoral neck fracture. TECHNIQUE: Imaging Protocol: Axial computed tomography images with coronal and sagittal reformatted images were created and reviewed. Three views of the left hip and pelvis were obtained. COMPARISON: CR,XR XR HIP LT COMPLETE AP PELVIS from 05/01/2023 FINDINGS: XR hip LT complete/AP pelvis: There is an acute fracture seen in the mid neck of the left femur. The fracture appears impacted medially with moderate varus angulation. There is an old fracture deformi ty of the left pubic bone. The sacroiliac joints and symphysis pubis appear intact. Mild degenerati ve changes are present. There is enthesophyte arising from the right greater trochanter. Degenerati ve changes are seen in the lower lumbar spine. There is soft tissue swelling over the left hip. Bones: There is an acute mildly comminuted fracture in the subcapital left femoral neck. The fractu re is impacted. There is superior displacement of the distal fracture. There is no extension into t he intertrochanteric regions. There is an old fracture deformity involving the left pubic bone. No other acute fracture is identified. No cellulitic or osteomyelitic changes are identified. Degenera tive changes are seen in the lower lumbar spine. There is a 2 x 1.3 x 0.8 cm sclerotic lesion in the left posterior iliac wing which is indeterminate. There is mild anterolisthesis of L5 on S1. Soft Tissues: There is a Mcclellan catheter seen within the urinary bladder. IMPRESSION: 1. Acute subcapital left femoral neck fracture. 2. Sclerotic lesion in the posterior left iliac wing which is indeterminate. This may represent an b one island. Metastasis cannot be excluded. Consider nonemergent bone scan, particularly if there is a history of primary malignancy. RADIATION DOSE DELIVERED: Total DLP DATA REPOSITORY: All CT scans at this facility are submitted to the National Radiology Data Registry (NRDR) Dose Index Registry (DIR) with the [employer] (ACR). RADIATION OPTIMIZATION: All CT scans at this facility use at least one of these dose optimization te chniques: automated exposure control; mA and/or kV adjustment per patient size (includes targeted exa ms where dose is matched to clinical indication); or iterative reconstruction.
--- NOTE | 2023-05-01 20:15 | DI.RAD_ITS ---
Exam(s) XR CHEST 1V IN DI DEPT EXAM: XR CHEST 1V IN DI DEPT CLINICAL HISTORY: pre op for hip fx TECHNIQUE: 2D digital imaging was performed of the chest. Images were obtained. PA and lateral v iews were obtained. COMPARISON: CR XR CHEST 2V PA LATERAL from 02/07/2022 FINDINGS: MEDIASTINUM: Normal. HEART: Normal. PULMONARY VASCULATURE: Normal. LUNGS: Clear. PLEURAL SPACE: No pleural effusion or pneumothorax. BONE:Within normal limits for the patient's age. OTHER FINDINGS:Note is made of breast implants. IMPRESSION: No acute pulmonary findings. DATA REPOSITORY: RADIATION DOSE DELIVERED:
--- NOTE | 2023-05-01 20:15 | RT.EKG_ITS ---
APPROVED REPORT Exam: Resting ECG Reason for Exam: pre op Patient Location: E HR:75 bpm ECG Measurements Heart Rate 75 AXIS AR 159 P 53 QRSd 82 QRS 60 QT 399 T 41 QTc 447 Conclusion Sinus rhythm...normal P axis, V-rate 60- 99 Consider left ventricular hypertrophy...(S V1+R V5/V6) >3.25mV Normal Homer There are no significant changes compared to prior EKG performed on 12/31/2021 at 17:20.
[2023-05-01 20:45] LABS: HCT 38.2 % (36.0-46.0); HGB 12.8 g/dL (11.2-15.7); MCH 31.5 pg (27.0-33.0); MCHC 33.5 % (32.0-36.0); MCV 94 fL (80-95); MPV 10.1 fL (8.0-11.0); Platelet Count 221 10^3/uL (130-400); RBC 4.06 10^6/uL (3.93-5.22); RDW 14.4 % (11.7-14.6); WBC 13.26 10^3/uL (4.4-10.8)
--- NOTE | 2023-05-01 20:52 | DI.VRAD_ITS ---
PROCEDURE INFORMATION: Exam: XR Left Hip Exam date and time: 05/01/2023 8:14 PM Age: 67 years old Clinical indication: Injury or trauma; Blunt trauma (contusions or hematomas); Left; Hip; Injury date: 04/30/23; Injury details: Fall yesterday, unable to bear weight pain TECHNIQUE: Imaging protocol: Radiologic exam of the left hip. Views: 2 or 3 views hip with pelvis when performed. COMPARISON: NM BONE SCAN WHOLE BODY GRP 07/15/2020 1:23 PM FINDINGS: Bones/joints: Osteopenia. Acute or subacute fracture of the left femoral neck midcervical distribution with moderate varus angulation and up to 10 mm impaction medially. No definite intertrochanteric extension although CT would be more sensitive if clinically indicated. Chronic fracture of the left parasymphyseal pubis with hypertrophic callus unchanged in appearance. SI joints and pubic symphysis demonstrate minor osteoarthritic changes without evidence of acute traumatic diastasis. Calcific enthesopathy at the right greater trochanter unchanged. Moderate lumbar osteoarthritic facet hypertrophy again noted. Soft tissues: Soft tissue swelling over the lateral left hip region. IMPRESSION: 1. Acute or subacute impacted left femoral neck fracture with varus angulation. No definite intertrochanteric extension radiographically although CT would be more sensitive for this. 2. Chronic fracture of the left parasymphyseal pubis again noted. 3. Osteopenia and osteoarthritic changes. Dictated and Authenticated by: Laureano Paige MD. Ordering:KARTHIKEYAN Franklin MD
--- NOTE | 2023-05-01 20:53 | DI.VRAD_ITS ---
PROCEDURE INFORMATION: Exam: XR Chest Exam date and time: 05/01/2023 8:23 PM Age: 67 years old Clinical indication: Screening exam; Pre-operative exam; Patient HX: Pre op for hip FX TECHNIQUE: Imaging protocol: Radiologic exam of the chest. Views: 1 view. COMPARISON: CR XR CHEST 2V PA LATERAL 02/07/2022 8:29 AM FINDINGS: Lungs: Normal pulmonary expansion. Pulmonary vasculature grossly normal. No gross pulmonary infiltrates or edema pattern. Pleural spaces: No pleural effusion. No pneumothorax. Heart/Mediastinum: Heart size normal. No tracheal/mediastinal shift. Bones/joints: No acute osseous abnormalities are identified. Osteopenia. Mild thoracic spondylosis. Soft tissues: Bilateral breast implants with right-sided capsular calcification again noted. IMPRESSION: No acute thoracic process. Dictated and Authenticated by: Laureano Paige MD. Ordering:KARTHIKEYAN Franklin MD
[2023-05-01 20:56] LABS: Source Nasal/Nares
[2023-05-01 21:00] LABS: ALT 19 U/L (14-59); AST 28 U/L (15-37); Albumin 3.6 g/dL (3.4-5.0); Alkaline Phosphatase 104 U/L (46-116); Anion Gap 11.7 mmol/L (3-11); BUN 20 mg/dL (7-18); Bilirubin, Total 0.8 mg/dL (0.2-1.0); CO2 25.3 mmol/L (21.0-32.0); CREATININE 0.9 mg/dL (0.55-1.02); Calcium 9.4 mg/dL (8.5-10.1); Chloride 101 mmol/L (98-107); Estimated GFR 70.07 (mL/min/1.73m2); Glucose 106 mg/dL (74-106); Potassium 3.9 mmol/L (3.5-5.1); Sodium 138 mmol/L (136-145); Total Protein 7.6 g/dL (6.4-8.2)
--- NOTE | 2023-05-01 21:03 | W.PM.HP.N ---
Date of service: 05/01/23 Time of Service: 21:04 Assessment and Plan Assessment and plan (1) Closed left hip fracture: Status: Acute Assessment and plan: Hip fracture. By history I wonder if she had partial injury yesterday which then progressed to complete fracture. regardless will place NPO, with prn analgesics and await Ortho input. Re: HTN: will continue usual Diltiazem, along with pain control. Full Code History of Present Illness History of Present Illness Chief Complaint: hip pain Narrative: 67 female had mechanical fall yesterday (pulled over by dog chasing a squirrel), landing on left side. had mild pain, able to walk around for the rest of the day. However, today, while standing in kitchen had sudden worsening of pain and came to ER. In ER workup demonstrates left femoral neck fracture. Patient given morphine 4mg and Zofran. Orthopedics notifeid and will see patient in AM. I was asked to evaluate for admission. Patient states she is comfortable at rest. Review of Systems Narrative: per HPI PFSH All Active Problems Closed left hip fracture (Acute) Arthritis of ankle, right (Acute) COVID-19 (Acute) Encounter for screening laboratory testing for COVID-19 virus (Acute) Obstipation (Acute) Uterine fibroid (Acute) Abdominal pain in female (Acute) Low back pain (Acute) Diarrhea (Acute) Constipation (Acute) Arthritis of right subtalar joint (Chronic) Arthritis of right foot (Chronic) Medical History 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) History of colon polyps Family history of breast cancer Family history of malignant melanoma Anxiety HARISH positive Hepatic cyst Hypertension Microcytic anemia Arthritis of carpometacarpal (CMC) joint of right thumb Arthritis Menopausal symptoms Surgical History History of total knee replacement Left Normal colonoscopy (~06/2020) History of bunionectomy of left great toe Colonoscopy - [facility] [place] 2009 Social History Smoking/Tobacco Use Status: Never Smoking risk assessment performed?: Yes Alcohol Intake: current Alcohol Intake frequency: holidays/special occasions only Drug use: Never Substance use type: does not use Household members: significant other Housing: house Number of Children: 1 Do you feel safe at home: Yes Do you feel safe in your relationship?: Yes Female Reproductive History Menstrual Menopause type: natural (August 2013) Meds Allergies and Home Medications Allergies Allergy/AdvReac Type Severity Reaction Status Date / Time ben Silva [From [employer]] AdvReac Severe extreme Unverified 05/01/23 19:47 pain/swelling Home Medications Medication Instructions Recorded Confirmed Type cholecalciferol (vitamin D3) 25 1,000 unit PO BID 11/05/13 05/01/23 History mcg (1,000 unit) capsule multivitamin (Multi-Day tablet) 1 ea PO DAILY 02/04/15 05/01/23 History diltiazem HCl 120 mg tablet 240 mg PO HS 07/16/15 05/01/23 History acetaminophen 500 mg tablet (Mapap 1,000 mg (2 x 500 mg) PO TID #180 06/02/16 05/01/23 Rx Extra Strength) tabs calcium carbonate 200 mg calcium 600 mg PO BID 06/12/20 05/01/23 History (500 mg) chewable tablet (Antacid (calcium carbonate)) hydroxychloroquine 200 mg tablet 200 mg PO DAILY 06/12/20 05/01/23 History methotrexate sodium 2.5 mg tablet 2.5 mg PO QWEEK 06/12/20 05/01/23 History folic acid 1 mg tablet 2 mg PO DAILY 06/22/20 05/01/23 History quinapril 40 mg tablet 40 mg PO DAILY 08/20/20 05/01/23 History adalimumab 40 mg/0.8 mL See Rx Instructions subcut .COMPLEX 02/28/22 05/01/23 History subcutaneous pen kit (Humira Pen) ramipril 10 mg capsule 10 mg PO DAILY 05/01/23 05/01/23 History Exam Narrative Exam Narrative: 210/90, 72, 36.5, 18, 98% RA. HEENT atraumatic; neck supple; lungs clear; heart RRR w/o MRG; abdomen soft and NT; extremities LLE foreshortened and everted, pedal pulses intact; neuro Ox3, lucid, moves all 4s Results Labs 05/01/23 20:34 05/01/23 20:34 Labs: Laboratory Results - last 24 hr 05/01/23 05/01/23 20:34 20:45 WBC 13.26 H RBC 4.06 Hgb 12.8 Hct 38.2 MCV 94 MCH 31.5 MCHC 33.5 RDW 14.4 Plt Count 221 MPV 10.1 Sodium 138 Potassium 3.9 Chloride 101 Carbon Dioxide 25.3 Anion Gap 11.7 H BUN 20 H Creatinine 0.9 Est GFR (CKD-EPI 2020) 70.07 Glucose 106 Calcium 9.4 Total Bilirubin 0.8 AST 28 ALT 19 Alkaline Phosphatase 104 Total Protein 7.6 Albumin 3.6 COVID-19 Source Nasal/Nares Last Vital Signs Temp 36.5 C 05/01/23 19:42 Pulse 72 05/01/23 20:01 Resp 18 05/01/23 19:42 BP 210/90 H 05/01/23 20:01 Pulse Ox 98 05/01/23 19:42 Time Spent Time spent with Patient: 40-54 minutes Time was spent: preparing to see the patient(eg.review tests), obtaining and/or reviewing separately otained hiistory, ordering medications,tests, procedures, referring, communicating with other health resident care assistant and indepentently interpreting results
[2023-05-01 21:26] LABS: Bilirubin Negative (Negative); Blood Small (Negative); Clarity Clear (Clear); Glucose Negative (Negative); Ketones 15 mg/dL (Negative); Leukocyte Esterase Negative (Negative); Nitrite Negative (Negative); Urobilinogen 0.2 mg/dL (Up to 0.2)
[2023-05-01 21:26] LABS: COVID-19 PCR Negative (Negative)
[2023-05-01 21:34] LABS: Epithelial Cells Rare HPF (Negative); WBC 0-2 HPF (0-5)
[2023-05-01 21:35] LABS: Bacteria Negative HPF (Negative); C & S Indicated? No; Casts 0-2 Hyaline LPF (Negative); Crystals Negative HPF (Negative); Mucus Negative (Negative)
[2023-05-01] MEDS: dilTIAZem CD 120 MG CAPCR 240 MG PO (22:03)
[2023-05-01] MEDS: MORPHine 10 MG/ML VIAL 4 MG IVP ×2 (22:08→23:29)
[2023-05-01] MEDS: ACETAMINOPHEN 1,000 MG/100 ML BTL 400 MG IVPB (22:55)
[2023-05-01] MEDS: Lactated Ringers 1,000 ML 80 ML IV (22:56)
[2023-05-01] MEDS: Normal Saline Flush 10 ML SYR IVP (22:56)
[2023-05-02] MEDS: LORazepam 0.5 MG TAB PO (00:07)
[2023-05-02 00:10] VITALS: BP 149/78
--- NOTE | 2023-05-02 00:34 | DI.VRAD_ITS ---
PROCEDURE INFORMATION: Exam: CT Left Lower Extremity Without Contrast, Hip Exam date and time: 05/01/2023 11:43 PM Age: 67 years old Clinical indication: Injury or trauma; Fall; Blunt trauma; Hip; Injury date: 04/30/23; Injury details: Eval left femoral neck fracture TECHNIQUE: Imaging protocol: CT of the left lower extremity without contrast was performed. Exam focused on the hip. Radiation optimization: All CT scans at this facility use at least one of these dose optimization techniques: automated exposure control; mA and/or kV adjustment per patient size (includes targeted exams where dose is matched to clinical indication); or iterative reconstruction. COMPARISON: CR XR HIP LT COMPLETE AP PELVIS 05/01/2023 8:14 PM FINDINGS: Tubes, catheters and devices: Mcclellan catheter in place with balloon appropriately positioned in the urinary bladder, which is largely contracted without gross abnormality. Bones/joints: Acute or subacute left subcapital to midcervical femoral neck fracture. No intertrochanteric extension. Minor comminution along the fracture interface with up to 11 mm impaction medially, and moderate varus angulation. No acute pelvic/acetabular fractures. Chronic healed fracture of the left parasymphyseal pubis with hypertrophic callus. 2 x 1.3 x 0.8 cm osteoblastic lesion in the left posterior iliac wing is indeterminate. It may represent a bone island, and there were no other similar lesions within the field of view to suggest metastasis. Consider bone scan to exclude metastatic pattern, particularly if there is history of primary malignancy. Minor osteoarthritic changes in the left SI joint and pubic symphysis. Grade 1 anterolisthesis and moderate disc degenerative changes L5-S1. Small left hip joint effusion. Soft tissues: No soft tissue hematoma. IMPRESSION: 1. Acute to subacute left femoral neck fracture involving the subcapital to midcervical femoral neck with no intertrochanteric extension. 2. There is a 2 cm osteoblastic bone lesion in the left posterior iliac wing. It might represent a benign bone island or fibrous dysplasia but is indeterminate. Consider nonemergent bone scan to exclude metastatic pattern, particularly if there is history of primary malignancy. Dictated and Authenticated by: Laureano Paige MD. Ordering:MATHIEU Dwyer MD
[2023-05-02 03:37] VITALS: BP 155/72; PULSE 72; RESP 16; TEMP 37; O2SAT 97
--- NOTE | 2023-05-02 05:20 | OCONE_ITS ---
Date of service: 05/02/23 Time of Service: 07:10 History of Present Illness History of Present Illness Chief Complaint: Left Hip Fracture Narrative: Sada is a 67-year-old active female who fell late on the while walking her dog. She landed on her left side and had some pain. She was able to ambulate although with some pain. The following day, while trying to push through some of the discomfort she had exquisite pain and was unable to ambulate any longer. She presented to the emergency department last night and was diagnosed with a displaced femoral neck fracture on the left side. She reports no significant pain in the left hip prior to the fracture. She does have history significant for rheumatoid arthritis and osteoporosis. She also has arthritis throughout her body including her right foot and ankle. She is status post previous left knee replacement. Consults Consult date: 05/01/23 Requesting physician: Rigoberto Marlow Consult Reason Left Femoral Neck Fracture Assessment and Plan Assessment and plan (1) Closed left hip fracture: Status: Acute Assessment and plan: Sada is an active 67-year-old female who unfortunately suffered a fall which resulted in a femoral neck fracture on the left side. This fracture is displaced. While there was not significant arthritis noted today on the films or premorbid pain, fracture pattern would benefit from hip replacement. This would allow more earlier ambulation and activity with a more predictable long- term outcome. I was concerned about the appearance of the bone on the initial x-ray. I do not see anything concerning on the CT scan. I would recommend we proceed with hip replacement. Unfortunately, due to timing and equipment issues this may need to be performed tomorrow. I will discuss with the OR staff and coordinate. She may eat and drink today. N.p.o. after midnight tonight. Bedrest, may consider Mcclellan catheter if necessary. Qualifiers: Encounter type: initial encounter Qualified Code(s): S72.002A - Fracture of unspecified part of neck of left femur, initial encounter for closed fracture Review of Systems All systems reviewed & are unremarkable except as noted in HPI and below PFSH All Active Problems (Updated 05/02/23 @ 05:37 by Reymundo Oviedo MD) Closed left hip fracture (Acute) Arthritis of ankle, right (Acute) COVID-19 (Acute) Encounter for screening laboratory testing for COVID-19 virus (Acute) Obstipation (Acute) Uterine fibroid (Acute) Abdominal pain in female (Acute) Low back pain (Acute) Diarrhea (Acute) Constipation (Acute) Arthritis of right subtalar joint (Chronic) Arthritis of right foot (Chronic) Medical History 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) History of colon polyps Family history of breast cancer Family history of malignant melanoma Anxiety HARISH positive Hepatic cyst Hypertension Microcytic anemia Arthritis of carpometacarpal (CMC) joint of right thumb Arthritis Menopausal symptoms Surgical History History of total knee replacement Left Normal colonoscopy (~06/2020) History of bunionectomy of left great toe Colonoscopy - [facility] [place] 2009 Social History Smoking/Tobacco Use Status: Never Smoking risk assessment performed?: Yes Alcohol Intake: current Alcohol Intake frequency: holidays/special occasions only Drug use: Never Substance use type: does not use Household members: significant other Housing: house Number of Children: 1 Do you feel safe at home: Yes Do you feel safe in your relationship?: Yes Female Reproductive History Menstrual Menopause type: natural (August 2013) Exam Narrative Exam Narrative: Resting supine in the hospital bed. No acute distress. Alert orient x3. Evaluation of the left leg shows some shortening and slight external rotation. No overlying skin changes. No signs of abrasion or laceration. No pain to palpation of the left knee or of the left tibia, left ankle, or left foot. Sensation intact light touch over the deep and superficial peroneal nerve and tibial nerve. Palpable DP and PT pulse. Results Last Vital Signs Temp 37 C 05/02/23 03:37 Pulse 72 05/02/23 03:37 Resp 16 05/02/23 03:37 BP 155/72 H 05/02/23 03:37 Pulse Ox 97 05/02/23 03:37 Labs 05/01/23 20:34 05/01/23 20:34 Labs: Laboratory Results - last 24 hr 05/01/23 05/01/23 05/01/23 20:34 20:45 21:15 WBC 13.26 H RBC 4.06 Hgb 12.8 Hct 38.2 MCV 94 MCH 31.5 MCHC 33.5 RDW 14.4 Plt Count 221 MPV 10.1 Sodium 138 Potassium 3.9 Chloride 101 Carbon Dioxide 25.3 Anion Gap 11.7 H BUN 20 H Creatinine 0.9 Est GFR (CKD-EPI 2020) 70.07 Glucose 106 Calcium 9.4 Total Bilirubin 0.8 AST 28 ALT 19 Alkaline Phosphatase 104 Total Protein 7.6 Albumin 3.6 Urine Color Yellow Urine Clarity Clear Urine pH 6.0 Ur Specific [place] 1.010 Urine Protein Negative Urine Ketones 15 H Urine Blood Small H Urine Nitrite Negative Urine Bilirubin Negative Urine Urobilinogen 0.2 Ur Leukocyte Esterase Negative Urine RBC 3-5 H Urine WBC 0-2 Ur Epithelial Cells Rare Urine Crystals Negative Urine Bacteria Negative Urine Casts 0-2 Hyaline Urine Mucus Negative Ur Culture Indicated? No Urine Glucose Negative COVID-19 Source Nasal/Nares SARS-CoV-2 (PCR) Negative Patient ABO/Rh O Positive Antibody Screen NEGATIVE Imaging Imaging Studies: X-ray of the left hip and pelvis demonstrates a displaced femoral neck fracture. There is notable shortening and varus alignment. There seems there could be some comminution or lucency at the femoral neck and therefore I will obtain an CT scan. CT scan of the left hip shows a comminuted femoral neck fracture. I do not see any concerning features or findings. No fracture extension distally. There is a healed fracture of the superior ramus on the left side with extension into the pubic symphysis. I also appears to be a bone island in the superior portion of the posterior left iliac wing. Some arthritic changes seen within the left SI joint and in the L5-S1 facet joints.
[2023-05-02 07:08] VITALS: BP 144/73; PULSE 74; RESP 18; TEMP 36.2; O2SAT 97
[2023-05-02] MEDS: ACETAMINOPHEN 1,000 MG/100 ML BTL 400 MG IVPB (09:12)
[2023-05-02] MEDS: Folic Acid 1 MG TAB 2 MG PO (09:14)
[2023-05-02] MEDS: Hydroxychloroquine 200 MG TAB PO (09:14)
[2023-05-02] MEDS: Ramipril 5 MG CAP 10 MG PO (09:14)
[2023-05-02] MEDS: Multivitamin TAB 1 TAB PO (09:14)
[2023-05-02] MEDS: Normal Saline Flush 10 ML SYR IVP ×3 (09:16→21:56)
--- NOTE | 2023-05-02 10:14 | W.PM.PROGNOT ---
Date of Service Date of service: 05/02/23 Time of Service: 10:14 Assessment and Plan Assessment and plan (1) Closed left hip fracture: Status: Acute Assessment and plan: Hip fracture. By history I wonder if she had partial injury yesterday which then progressed to complete fracture. , with prn analgesics Ortho consult completed: OR in AM 05/03 Full Code Qualifiers: Encounter type: initial encounter Qualified Code(s): S72.002A - Fracture of unspecified part of neck of left femur, initial encounter for closed fracture (2) Leukocytosis: Status: Acute Assessment and plan: mild elavation, WBC 13.26 last night will trend, most likely due to trauma or medical stress;remains afebrile. She is also medicines for RA. will continue to monitor (3) Hypertension: Assessment and plan: Continue Diltiazem and altace (4) Rheumatoid arthritis: Status: Chronic Assessment and plan: Continue home medicines: hydroxychloroquine and methotrexate (5) On deep vein thrombosis (DVT) prophylaxis: Status: Acute Assessment and plan: Heparin 5000 units SC BID started , holding HS dose for surgery in AM (6) Discharge planning issues: Status: Acute Assessment and plan: D/C home with HH PT to consider, will have assistance at home CM will follow up on discharge needs Subjective Subjective Patient reports: no new complaints, still having pain (The patient reports that pain is well manage with current pain medicine regimen), pain is less (Pain was severe 2 /10 after pain medicine administration), tolerating liquids well, tolerating a regular diet, voiding w/o difficulty, no bowel movement (X 24 hours, w) and afebrile; denies flatus, diarrhea, nausea, vomiting or shortness of breath Exam Narrative Exam Narrative: Constitutional The patient is lying in bed comfortable and cooperative during the interview. The patient is well groomed without acute distress and has average body habitus HENMT: Head is normocephalic, facial structures with normal appearance Eyes: Well aligned Neck: no meningeal signs Neuro:alert and oriented to self, person, place, time and situation. No neurological focal deficit Chest:Chest is symmetrical and normal appearance Resp: Normal respiratory pattern, speaks in full sentences, unlabored breathing, clear lung bilaterally Cardio: regular rhythm, S1, S2, no murmur, capillary refill<3 sec., bilateral radial and dorsalis pedis pulses are positive, palpable GI: Abdomen is not distended, soft and non tender, bowel sounds are present : Negative Costovertebral angle tenderness, no bladder distension Back/spine/Pelvis: No back tenderness, normal alignment Integumentary: No skin lesions or rash Extremities: decreased ROM and strength to left lower, otherwise intact Psych: RASS 0, congruent mood and normal affect. Objective Last Vital Signs Temp 36.2 C L 05/02/23 07:08 Pulse 74 05/02/23 07:08 Resp 18 05/02/23 07:08 BP 144/73 H 05/02/23 07:08 Pulse Ox 97 05/02/23 07:08 Laboratory Results - last 24 hr 05/01/23 05/01/23 05/01/23 20:34 20:45 21:15 WBC 13.26 H RBC 4.06 Hgb 12.8 Hct 38.2 MCV 94 MCH 31.5 MCHC 33.5 RDW 14.4 Plt Count 221 MPV 10.1 Sodium 138 Potassium 3.9 Chloride 101 Carbon Dioxide 25.3 Anion Gap 11.7 H BUN 20 H Creatinine 0.9 Est GFR (CKD-EPI 2020) 70.07 Glucose 106 Calcium 9.4 Total Bilirubin 0.8 AST 28 ALT 19 Alkaline Phosphatase 104 Total Protein 7.6 Albumin 3.6 Urine Color Yellow Urine Clarity Clear Urine pH 6.0 Ur Specific [place] 1.010 Urine Protein Negative Urine Ketones 15 H Urine Blood Small H Urine Nitrite Negative Urine Bilirubin Negative Urine Urobilinogen 0.2 Ur Leukocyte Esterase Negative Urine RBC 3-5 H Urine WBC 0-2 Ur Epithelial Cells Rare Urine Crystals Negative Urine Bacteria Negative Urine Casts 0-2 Hyaline Urine Mucus Negative Ur Culture Indicated? No Urine Glucose Negative COVID-19 Source Nasal/Nares SARS-CoV-2 (PCR) Negative Patient ABO/Rh O Positive Antibody Screen NEGATIVE PAWSS Have you Been Recently Intoxicated or Drunk Within the Last 30 days?: No Have you Ever Experienced Previous Episodes of Alcohol Withdrawal?: No Have you ever Experienced Withdrawal Seizures?: No Have you ever Experienced Delirium Tremens(DT)s?: No Have you ever undergone Alcohol Rehabilitation Treatment (i.e, inpt ot outpatient treatment programs)?: No Have you ever Experienced Blackouts?: No Have you ever Combined Alcohol with other Downers within the last 90 days?: No Have you ever Combined Alcohol with any other Substance of Abuse during the last 90 days?: No Positive Blood Alcohol level on Presentation? [PCS.BAL]: No Evidence of Increased Autonomic Activity (i.e. HR>120, tremor, sweating, agitation, nausea)?: No Result: 0 Time Spent with Patient Time Spent with Patient: 35-49 minutes Time was spent: preparing to see the patient(eg.review tests), ordering medications,tests, procedures, referring, communicating with other health transitional care manager, indepentently interpreting results, counseling the patient and care coordination
--- NOTE | 2023-05-02 11:31 | INITIAL_ITS ---
Date of service: 05/02/23 Time of Service: 11:31 Care Management Initial Assmt Initial Assessment REASON FOR HOSPITALIZATION:: Hip fracture. PREVIOUS FUNCTIONAL STATUS/SOCIAL/FAMILY SUPPORTS:: Sada is a 67-year-old woman who lives with her dog in [place], [place]. She shares her friend Darrion periodically stays with her. She has one daughter, Liza, who resides in [place], [place]. 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 She is independent at baseline and enjoys gardening, yumiko, sewing, hiking, etc. CURRENT FUNCTIONAL STATUS:: Sada is lying in bed when CM comes to meet with her. She is pleasant and easily engages in conversation. She shares her hope is to be able to return home tomorrow after surgery but she knows she may need to remain at the hospital one more night. She states her friend Darrion is planning on staying with her while she recuperates. ADVANCE DIRECTIVES:: None on file; patient accepts the Advance Directives form for completion at a later time. Has patient been provided with info about the portal/API?: Yes Did the patient sign up for the portal?: Yes (Previously enrolled) CODE STATUS:: Full Code INSURANCE COVERAGE / FINANCIAL ISSUES:: Medicare and [facility]. CURRENT HOME/COMMUNITY SERVICES/EQUIPMENT:: No home/community services or equipment. A friend has given her crutches to use as needed. PRIMARY CARE PHYSICIAN:: Guem Nolasco MD POTENTIAL DISCHARGE NEEDS:: Follow up appointments with PCP, orthopedic surgeon and potential physical therapy. PATIENT/FAMILY EDUCATION NEEDS:: Review of discharge instructions including medications, limitations and follow up plan of care; discuss Ask Me Three and self management. ANTICIPATED BARRIERS TO DISCHARGE:: None identified at this time. TRANSPORTATION:: Via private vehicle with friend Darrion. PLAN:: Anticipate Sada will be discharged home when medically cleared by provider. PT will assess her need for in-home physical therapy services vs outpatient PT following surgery. Sada will follow up with her PCP, orthopedic surgeon and plan of care as instructed. She will be driven home by her friend Darrion via private vehicle when ready. CM will continue to follow. PFSH All Active Problems (Updated 05/02/23 @ 11:51 by Abbie Cole APRN) Rheumatoid arthritis (Chronic) On deep vein thrombosis (DVT) prophylaxis (Acute) Discharge planning issues (Acute) Leukocytosis (Acute) Closed left hip fracture (Acute) Arthritis of ankle, right (Acute) COVID-19 (Acute) Encounter for screening laboratory testing for COVID-19 virus (Acute) Obstipation (Acute) Uterine fibroid (Acute) Abdominal pain in female (Acute) Low back pain (Acute) Diarrhea (Acute) Constipation (Acute) Arthritis of right subtalar joint (Chronic) Arthritis of right foot (Chronic) Medical History 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) History of colon polyps Family history of breast cancer Family history of malignant melanoma Anxiety HARISH positive Hepatic cyst Hypertension Microcytic anemia Arthritis of carpometacarpal (CMC) joint of right thumb Arthritis Menopausal symptoms Surgical History History of total knee replacement Left Normal colonoscopy (~06/2020) History of bunionectomy of left great toe [place] [facility] [place] Social History Smoking/Tobacco Use Status: Never Smoking risk assessment performed?: Yes Alcohol Intake: current Alcohol Intake frequency: holidays/special occasions only Drug use: Never Substance use type: does not use Household members: significant other Housing: house Number of Children: 1 Do you feel safe at home: Yes Do you feel safe in your relationship?: Yes Female Reproductive History Menstrual Menopause type: natural (August 2013)
[2023-05-02] MEDS: Heparin 5,000 UNITS/ML VIAL 5000 UNITS SC (12:16)
[2023-05-02 12:51] LABS: INR 0.9 (0.9-1.1); Prothrombin Time 9.5 sec (9.1-11.1)
[2023-05-02 15:45] VITALS: BP 150/75; PULSE 76; RESP 16; TEMP 37.5; O2SAT 98
--- NOTE | 2023-05-02 15:48 | CHAPLAIN ---
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 She told me about her dog pulling her against a rock and then not being able to walk the next day and finding out she'd broken her hip. She's scheduled for a hip replacement tomorrow and hopes to go home after that. [place] off the [place], so carrying for her animals is a little trickier than usual so she hopes to get home as soon as possible. A friend is taking care of them now. and Sada realizes she may have to stay another night after the surgery. She said her pain has been controlled and she's comfortable.
[2023-05-02] MEDS: dilTIAZem CD 120 MG CAPCR 240 MG PO (21:15)
[2023-05-02] MEDS: Acetaminophen 325 MG TAB 650 MG PO (21:20)
[2023-05-02] MEDS: Melatonin 3 MG TAB 6 MG PO (21:22)
[2023-05-03] VITALS (16 sets, daily range): BP systolic 93–166; BP diastolic 33–79; PULSE 63–79; RESP 13–19; TEMP 35.4–37.2; O2SAT 91–99; BMI 24.0
[2023-05-03] MEDS: Normal Saline Flush 10 ML SYR IVP ×4 (02:08→14:30)
[2023-05-03] MEDS: Lactated Ringers 1,000 ML 80 ML IV ×2 (02:12→16:00)
[2023-05-03] MEDS: HYDROmorphone 2 MG/ML SYR IVP ×2 (06:54→11:18)
--- NOTE | 2023-05-03 07:10 | W.PM.PROGNOT ---
Date of Service Date of service: 05/03/23 Time of Service: 07:10 Assessment and Plan Assessment and plan (1) Closed left hip fracture: Status: Acute Assessment and plan: Betty is a 67-year-old who has a displaced femoral neck fracture of the left side. Given her young age, active lifestyle and displaced nature of the fracture I recommend proceeding with hip replacement. Once again I reviewed this with her. I discussed the potential risks include bleeding, infection, pain, stiffness, fracture, instability, damage to nerves and vessels, damage to muscle and tendons, blood clot. Despite these risk, she elects to proceed. Qualifiers: Encounter type: initial encounter Qualified Code(s): S72.002A - Fracture of unspecified part of neck of left femur, initial encounter for closed fracture Subjective Subjective Interval history since last seen: No acute changes. Pain relatively controlled. No CP/SOB. No concerns from the hospitalist team in regards to proceeding with hip replacement for fracture. Objective Last Vital Signs Temp 35.4 C L 05/03/23 03:00 Pulse 66 05/03/23 03:00 Resp 18 05/03/23 03:00 BP 129/70 05/03/23 03:00 Pulse Ox 98 05/03/23 03:00 Laboratory Results - last 24 hr 05/02/23 05/03/23 05/03/23 12:34 05:35 11:40 PT 9.5 Cancelled Cancelled INR 0.9 Cancelled Cancelled PAWSS Have you Been Recently Intoxicated or Drunk Within the Last 30 days?: No Have you Ever Experienced Previous Episodes of Alcohol Withdrawal?: No Have you ever Experienced Withdrawal Seizures?: No Have you ever Experienced Delirium Tremens(DT)s?: No Have you ever undergone Alcohol Rehabilitation Treatment (i.e, inpt ot outpatient treatment programs)?: No Have you ever Experienced Blackouts?: No Have you ever Combined Alcohol with other Downers within the last 90 days?: No Have you ever Combined Alcohol with any other Substance of Abuse during the last 90 days?: No Positive Blood Alcohol level on Presentation? [PCS.BAL]: No Evidence of Increased Autonomic Activity (i.e. HR>120, tremor, sweating, agitation, nausea)?: No Result: 0 Time Spent with Patient Time Spent with Patient: <25 minutes Time was spent: preparing to see the patient(eg.review tests), indepentently interpreting results, counseling the patient and care coordination
[2023-05-03 07:25] LABS: Abs Immature Grans 0.02 10^3/uL (0.0-0.06); Absolute Basophil Count 0.08 10^3/uL (0.0-0.2); Absolute Eosinophil Count 0.53 10^3/uL (0.0-0.7); Absolute Lymphocyte Count 2.08 10^3/uL (1.2-3.4); Absolute Neutrophil Count 4.59 10^3/uL (1.2-6.7); Eosinophils % 6.5; HCT 35.8 % (36.0-46.0); HGB 12.1 g/dL (11.2-15.7); Immature Grans % 0.2; Lymphocytes % 25.7; MCH 32.2 pg (27.0-33.0); MCHC 33.8 % (32.0-36.0); MCV 95 fL (80-95); MPV 10.3 fL (8.0-11.0); Monocytes % 9.9; Neutrophils % 56.7; Platelet Count 222 10^3/uL (130-400); RBC 3.76 10^6/uL (3.93-5.22); RDW 14.6 % (11.7-14.6); RDW-SD 50.3 fL
[2023-05-03 07:42] LABS: Anion Gap 9.1 mmol/L (3-11); BUN 12 mg/dL (7-18); CO2 26.9 mmol/L (21.0-32.0); CREATININE 0.6 mg/dL (0.55-1.02); Calcium 8.8 mg/dL (8.5-10.1); Chloride 101 mmol/L (98-107); Estimated GFR 98.32 (mL/min/1.73m2); Glucose 81 mg/dL (74-106); Magnesium 1.8 mg/dL (1.8-2.4); Potassium 3.5 mmol/L (3.5-5.1); Sodium 137 mmol/L (136-145)
--- NOTE | 2023-05-03 08:15 | W.ANESPRE ---
General Info Date of Service Date Performed: 05/03/23 Height: 5 ft 3 in Weight: 61.4 kg Body Mass Index (BMI): 24.0 Surgical Procedure: Operation Date: 05/03/23 15:20 Proposed Procedure Side Surgeon p Hip Total Hip Anterior, Bimentum Left Reymundo Oviedo MD Meds Allergies and Home Medications Allergies Allergy/AdvReac Type Severity Reaction Status Date / Time hylan G-F 20 [From [employer]] AdvReac Severe extreme Unverified 05/01/23 19:47 pain/swelling Home Medication Medication Instructions Recorded cholecalciferol (vitamin D3) 25 1,000 unit PO BID 11/05/13 mcg (1,000 unit) capsule multivitamin (Multi-Day tablet) 1 ea PO DAILY 02/04/15 diltiazem HCl 120 mg tablet 240 mg PO HS 07/16/15 acetaminophen 500 mg tablet (Mapap 1,000 mg (2 x 500 mg) PO TID #180 06/02/16 Extra Strength) tabs calcium carbonate 200 mg calcium 600 mg PO BID 06/12/20 (500 mg) chewable tablet (Antacid (calcium carbonate)) hydroxychloroquine 200 mg tablet 200 mg PO DAILY 06/12/20 methotrexate sodium 2.5 mg tablet 2.5 mg PO QWEEK 06/12/20 folic acid 1 mg tablet 2 mg PO DAILY 06/22/20 quinapril 40 mg tablet 40 mg PO DAILY 08/20/20 adalimumab 40 mg/0.8 mL See Rx Instructions subcut .COMPLEX 02/28/22 subcutaneous pen kit (Humira Pen) ramipril 10 mg capsule 10 mg PO DAILY 05/01/23 Current Visit Medications: Current Medications Generic Name Dose Route Start Last Admin Trade Name Freq PRN Reason Stop Dose Admin Acetaminophen 650 mg 05/02/23 11:52 05/02/23 21:20 Acetaminophen 325 Mg Tab PO 650 mg Q6H PRN PRN Administration Diltiazem HCl 240 mg 05/01/23 22:00 05/02/23 21:15 Diltiazem Cd 120 Mg Capcr PO 240 mg HS DEVONTE Administration Folic Acid 2 mg 05/02/23 08:30 05/02/23 09:14 Folic Acid 1 Mg Tab PO 2 mg DAILY DEVONTE Administration Hydromorphone HCl 0.2 mg 05/03/23 06:33 05/03/23 06:54 Hydromorphone 2 Mg/Ml Syr IVP 0.2 mg Q3H PRN Administration Hydroxychloroquine Sulfate 200 mg 05/02/23 08:30 05/02/23 09:14 Hydroxychloroquine 200 Mg Tab PO 200 mg DAILY DEVONTE Administration Ringer's Solution 1,000 mls @ 80 mls/hr 05/01/23 21:15 05/03/23 02:12 IV 80 mls/hr INFUSION DEVONTE Administration IV Miscellaneous Supplies 1 each 05/02/23 09:00 Iv Access IV DIRECTED DEVONTE Lorazepam 0.5 mg 05/01/23 21:17 05/02/23 00:07 Lorazepam 0.5 Mg Tab PO 0.5 mg HS PRN PRN Administration Melatonin 6 mg 05/02/23 08:47 05/02/23 21:22 Melatonin 3 Mg Tab PO 6 mg HS PRN PRN Administration Insomnia Methotrexate Sodium 2.5 mg 05/01/23 22:00 Methotrexate 2.5 Mg Tab PO QWEEK [facility] Multivitamins 1 tab 05/02/23 08:30 05/02/23 09:14 Multivitamin Tab PO 1 tab DAILY DEVONTE Administration Ondansetron HCl 4 mg 05/01/23 21:14 Ondansetron 4 Mg/2 Ml Vial IVP Q4H PRN PRN Ramipril 10 mg 05/02/23 08:30 05/02/23 09:14 Ramipril 5 Mg Cap PO 10 mg DAILY DEVONTE Administration Sodium Chloride 0 ml 05/02/23 08:46 05/03/23 06:55 Normal Saline Flush 10 Ml Syr IVP 10 ml PRN PRN Administration Tramadol HCl 50 mg 05/03/23 06:33 Tramadol 50 Mg Tab PO Q4H PRN PRN PFSH Active Problems Active Problems: Problem Status Onset Code Rheumatoid arthritis M06.9 On deep vein thrombosis (DVT) prophylaxis Z79.899 Discharge planning issues Z02.9 Leukocytosis D72.829 Closed left hip fracture S72.002A Arthritis of ankle, right M19.071 COVID-19 U07.1 Encounter for screening laboratory testing for COVID-19 virus Z20.822 Obstipation K59.00 Uterine fibroid D25.9 Abdominal pain in female R10.9 Low back pain M54.5 Diarrhea R19.7 Constipation K59.00 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 Arthritis of right foot M19.071 Medical History Medical History 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) History of colon polyps Family history of breast cancer Family history of malignant melanoma Anxiety HARISH positive Hepatic cyst Hypertension Microcytic anemia Arthritis of carpometacarpal (CMC) joint of right thumb Arthritis Menopausal symptoms Surgical History Surgical History History of total knee replacement Left Normal colonoscopy (~06/2020) History of bunionectomy of left great toe [place] [facility] [place] Tobacco Smoking/Tobacco Use Status: Never Alcohol Alcohol Intake: current Alcohol intake frequency: holidays/special occasions only Substance Use Substance use: Never Substance use type: does not use Vital Signs and Lab Results Vital Signs Most Recent Vital Signs in EMR: Most Recent Vital Signs Temp Pulse Resp BP Pulse Ox 37.1 C 69 17 151/77 H 97 05/03/23 07:30 05/03/23 07:30 05/03/23 07:30 05/03/23 07:30 05/03/23 07:30 Lab Results 05/03/23 06:35 05/03/23 06:35 Blood Type / Crossmatch: Patient ABO/Rh O Positive 05/01/23 Antibody Screen NEGATIVE 05/01/23 Complete Blood Count: White Blood Count 8.10 10^3/uL (4.4-10.8) 05/03/23 06:35 Red Blood Count 3.76 10^6/uL (3.93-5.22) L 05/03/23 06:35 Hemoglobin 12.1 g/dL (11.2-15.7) 05/03/23 06:35 Hematocrit 35.8 % (36.0-46.0) L 05/03/23 06:35 Platelet Count 222 10^3/uL (130-400) 05/03/23 06:35 Complete Metabolic Panel: Sodium 137 mmol/L (136-145) 05/03/23 06:35 Potassium 3.5 mmol/L (3.5-5.1) 05/03/23 06:35 Chloride 101 mmol/L (98-107) 05/03/23 06:35 Carbon Dioxide 26.9 mmol/L (21.0-32.0) 05/03/23 06:35 BUN 12 mg/dL (7-18) 05/03/23 06:35 Creatinine 0.6 mg/dL (0.55-1.02) 05/03/23 06:35 Est GFR (CKD-EPI 2020) 98.32 (mL/min/1.73m2) 05/03/23 06:35 Magnesium 1.8 mg/dL (1.8-2.4) 05/03/23 06:35 Calcium 8.8 mg/dL (8.5-10.1) 05/03/23 06:35 Albumin 3.6 g/dL (3.4-5.0) 05/01/23 20:34 Glucose 81 mg/dL (74-106) 05/03/23 06:35 Liver Function Panel: Alanine Aminotransferase (ALT/SGPT) 19 U/L (14-59) 05/01/23 20:34 Aspartate Amino Transf (AST/SGOT) 28 U/L (15-37) 05/01/23 20:34 Coagulation Panel: INR International Normalized Ratio 0.9 (0.9-1.1) 05/02/23 12:34 Prothrombin Time 9.5 sec (9.1-11.1) 05/02/23 12:34 Cardiac Panel: No Data to Display Arterial Blood Gas: No Data to Display Venous Blood Gas: No Data to Display Pancreas Panel: No Data to Display Thyroid Panel: No Data to Display Infectious Disease: Coronavirus (COVID-19)(PCR) Negative (Negative) 05/01/23 20:45 Coronavirus 2019 Source Nasal/Nares 05/01/23 20:45 Blood Cultures: No Data to Display Toxicology Panel: No Data to Display Imaging and Studies Imaging and Studies Study information below may be from another EMR and interpreted by another provider. Please see original notes in EMR for more complete details. EKG Summary: Conclusion Sinus rhythm...normal P axis, V-rate 60- 99 Consider left ventricular hypertrophy...(S V1+R V5/V6) >3.25mV Normal [place] There are no significant changes compared to prior EKG performed on 12/31/2021 at 17:20. 05/01/23 Carotid Artery Summary:: CAROTID ULTRASOUND: Bilateral intimal thickening is demonstrated. There is minimal bilateral plaque formation in the carotid bulb. Antegrade flow is noted in the vertebral arteries. SUMMARY: No evidence of significant carotid stenosis. 12/03/15 Anesthesia Assessment and Plan Anesthesia History Personal History: No History of Anesthesia Complications Family History: No Family History of Anesthesia Complications Exercise Tolerance Exercise Tolerance: Metabolic Equivalents>4 Pertinent Negatives Pertinent Negatives: No Symptoms of GERD, No Major Cardiovascular Symptoms or Complaints, No Major Pulmonary Symptoms or Complaints and No History of CVA/TIA Cardiac & Pulmonary Exam Cardiac Exam: Normal S1/S2 Heart Sounds Pulmonary Exam: Clear Bilateral Breath Sounds Implantable Cardiac Device Does patient have a Pacemaker or an ICD?: No Airway Exam Known Difficult Airway: No Mallampati Class: 2 Mouth Opening: Normal (> 3cm) Thyromental Distance: Greater than 3 cm Neck Range of Motion: Full ROM Neck Circumference: Normal Teeth Condition: Normal Dentition ASA Classification ASA Score: ASA 2 Emergency Case?: No NPO Status NPO Status: NPO Clears >2 hours, Solids >8 hours Anesthesia Plan Resuscitation Status: Full Code Anesthesia Technique: Spinal Anesthesia Airway Planned: Natural Airway Monitors Used: Standard Monitors
[2023-05-03] MEDS: Hydroxychloroquine 200 MG TAB PO (08:39)
--- NOTE | 2023-05-03 10:45 | PDOC.CMPRO ---
Date of service: 05/03/23 Time of Service: 10:46 Care Management Progress Note Progress Note Text Progress Note Text: S/O: A: Sada is a 67 year old woman admitted to [facility] on 05/01/23 with a hip fracture P:Anticipate Sada will be discharged home when medically cleared by provider. PT will assess her need for in-home physical therapy services vs outpatient PT following surgery. Sada will follow up with her PCP, orthopedic surgeon and plan of care as instructed. She will be driven home by her friend Darrion via private vehicle when ready. CM will continue to follow.
[2023-05-03] MEDS: traMADol 50 MG TAB PO ×2 (12:58→21:48)
[2023-05-03] MEDS: HYDROmorphone 2 MG/ML SYR 0.5 MG IVP ×2 (14:30→19:20)
[2023-05-03] MEDS: ceFAZolin 2 GM/50 ML BAG IVPB (16:34)
[2023-05-03] MEDS: Tranexamic Acid 1,000 MG/10 ML VIAL 1000 MG (16:42)
--- NOTE | 2023-05-03 17:05 | PDOC.CMPRO ---
Date of service: 05/03/23 Time of Service: 17:05 Care Management Progress Note Progress Note Text Progress Note Text: S/O:Sada was sitting up in bed waiting to go to surgery when CM met with her. She stated that she continues to have pain however she had recently been medicated and was feeling some relief. Sada informed CM that she hopes to be able to go home tomorrow. She will be evaluated by PT in the morning when a determination about post-discharge services will be made. Sada does have a friend, Darrion, who will stay with her while she convalesces. A: Sada is a 67 year old woman who was admitted on 05/01/23 with a hip fracture. P:Anticipate Sada will be discharged home when medically cleared by provider. PT will assess her need for in-home physical therapy services vs outpatient PT following surgery. Sada will follow up with her PCP, orthopedic surgeon and plan of care as instructed. She will be driven home by her friend Darrion via private vehicle when ready. CM will continue to follow.
--- NOTE | 2023-05-03 17:22 | CHAPLAIN ---
Sada was visiting with one of her coworkers from the OR nurses team when I visited this morning. She was waiting to go to the OR this afternoon for surgery. Sada hopes to be able to go home tomorrow, but will have a PT evaluation first.
--- NOTE | 2023-05-03 18:09 | DI.RAD_ITS ---
Exam(s) XR HIP LT IN OR EXAM: XR HIP LT IN OR CLINICAL HISTORY: LEFT HIP FRACTURE TECHNIQUE: 2D and realtime digital imaging was performed. CONTRAST MATERIAL: Refer to procedure report. COMPARISON: CR,XR XR HIP LT COMPLETE AP PELVIS from 05/01/[address] LOWER EXTREMITY LT WO from 05/01/2023 FINDINGS: Fluoroscopy was provided for Dr. Oviedo during the performance of a left total hip replacement. P lease refer to the procedure report for complete details. Ka,r=3.58 mGy IMPRESSION: RADIATION DOSE DELIVERED:
--- NOTE | 2023-05-03 18:15 | ROE_ITS ---
Date of service: 05/03/23 Time of Service: 16:25 Operative Note Operative Note DATE OF PROCEDURE: 05/03/23 PRE-OP DIAGNOSIS: Displaced Left Femoral Neck Fracture POST-OP DIAGNOSIS: same PROCEDURE: Left Anterior Total Hip Arthroplasty with Intraoperative Navigation SURGEON: Reymundo Oviedo OPERATIONS SUPPORT SPECIALIST: Candelario Yung ANESTHESIA TYPE: Spinal Refer to Anesthesia Record ESTIMATED BLOOD LOSS: 400 PATHOLOGY: none sent TOURNIQUET TIME: 0 COMPLICATIONS: None Patient was transported to: PACU Patient's condition: stable Implants: 1. Depuy Bimentum Dual Mobility Acetabular Component, 47mm 2. Depuy Bimentum Acetabular Liner, 84h46el 3. Depuy Corail Standard Collared Femoral Stem, Size 11 4. Depuy Altrx Ceramic Femoral Head, Size 28+5mm Indications: I have seen Sada in clinic for symptoms of hip arthritis, confirmed with radiographic findings. She has exhausted nonoperative methods and was having significant limitations in daily function and desired better function and less pain. I discussed the technical details of a hip replacement. I explained the risks of the procedure to include, but not limited to, bleeding, infection, pain, stiffness, fracture, damage to nerves and vessels, damage to muscles and tendons, loosening, instability, leg length inequality, need for repeat procedure, blood clot and cardiopulmonary demise. Despite these risks, Sada elected to proceed. Findings: There was a highly comminuted fracture of the femoral neck with some extension into the femoral head. The bone was soft in this region. During planing of the proximal femur, the bone cracked. It was stable but did extend into the intertrochanteric ridge so a cable was placed. Procedure Description: Sada was greeted in the preoperative holding area where the correct side was identified and marked. The consent was reviewed with the patient and signed. The history and physical was updated. All questions were answered. She was taken back to the operating room. A spinal anesthestic was then administered. The feet were wrapped with cast padding and Coban and then placed into the boot liners and then into the boots. Care was taken to protect the skin and make sure the heels were fully down and the boots were stable. The patient was then positioned onto the HANA table. Both legs were held in a neutral position. SCDs were applied. The patient was then slid down onto a peroneal post. Prophylactic antibiotics in the form of Cefazolin were administered. 1g of Tranxemic Acid was given intravenously within 30 minutes of incision. The left leg was then prepped with Chloraprep and draped in a standard fashion. A second prep with Chloraprep was performed prior to placement of a shower-curtain type drape with Iodine impregnated skin protection . A timeout to confirm correct identity, side and site, procedure, allergies, anesthesia, and medical concerns was performed. An obliquely oriented incision was made starting lateral to the ASIS and running distal over the Tensor Fascia Rosalind (TFL) muscle belly toward the fibular head, approximately 10cm. The skin and soft tissue was dissected sharply, through Luis Manuel?s fascia, and to the fascia of the TFL. With the fascia and superior border of the IT band identified, the fascia was incised with a new knife just above any perforators from the IT band. The TFL muscle belly was bluntly disse cted away from the fascia and moved laterally. The fat between TFL and rectus was identified to ensure the dissection was not within the TFL. Blunt dissection created space between abductors and the capsule and retractor was placed over the lateral femoral neck. The fibers of the rectus femoris tendon were identified and these were freed from the anterior capsule. A second cobra retractor was placed around the medial femoral neck. The TFL was further retracted laterally to show the deep fascia. Careful dissection through this layer identified three main crossing vessels of the lateral femoral circumflex. These were cauterized in multiple locations and then cut without any noticeable bleeding. The TFL was further released bluntly from the deep fascia to expose anterior hip capsule and fat The Oni orthopaedic retractor was then placed beneath the TFL and against sartorius and medial soft tissues to protect and retract the soft tissues. A T-capsulotomy was then performed starting at the superior lateral acetabulum and moving distally to the intertrochanteric ridge. These capsular flaps were tagged with a No. 1 Ethibond and elevated from within. The capsular flaps were released to the shoulder of the lateral neck and to the lesser trochanter to give excellent visualization of the proximal femur. Fracture hematoma was evacuated. There is a midcervical subcapital femoral neck fracture with notable comminution what appeared to be a small split in the femoral head. A neck osteotomy was performed using an oscillating saw based on preoperative templates. This cut started in the shoulder and of the lateral neck and exited medially. The saw was at all times directed medially to avoid injury to the greater trochanter. Gross traction was applied to the leg and the osteotomy opened. The interval bone between the osteotomy and the fracture was removed. The bone of the femoral head was quite soft. I was unable to get a corkscrew to stay within the head and unfortunately the femoral head had to be removed in pieces. Traction was released after head removal. This was measured on the back table to determine the starting reamer size. Portions of the rectus obscuring visualization were minimally elevated off the superior acetabulum. An anterior retractor was placed over the anterior wall between capsule and labrum and attached to the Gripper retraction system. The femur was rotated to 90 degrees and medial capsule was fully released until the lesser trochanter was palpable and visible; the femur was returned to 30 degrees. A posterior retractor was placed similarly between capsule and labrum. This provided excellent visualization. The contents of the cotyloid fossa were removed with electrocautery and the labrum was removed with a knife. Acetabular reaming began with a 43mm reamer. This first reaming was directed anterior to posterior and medial to get down to the true floor. This was inspected and reamed until the true floor was reached. The anterior retractor was then released and entry and exit was provided by traction on the capsular flaps. I then reamed sequentially up to a 47mm reamer where good fit was obtained. The larger reamers were oriented based on anatomical reference of the anterior and lateral wadsworth to ensure proper abduction and anteversion. Positioning and size was confirmed with the fluoroscopy. A 47mm Bimentum dual mobility acetabular component was selected. The acetabulum was reamed around the periphery with the selected acetabular size to prevent a rim fit. The deep tissues were irrigated. The acetabular component was then impacted in a position of about 40-45 degrees of abduction and 15-20 degrees of anteversion, using the patient?s anatomy as the ultimate landmark. Fluoroscopy was used to confirm this. There was excellent weigh and charge worker of the acetabular component and the inserting handle was removed. A portion of the cassie-articular cocktail was then injected around the acetabulum into the capsule and periosteum. This cocktail consisted of 123mg of Ropivacaine, 0.25mg of Epinephrine, 0.04mg of Clonidine, and 15mg of Ketorolac, diluted to 50cc. The leg was rotated to 120 degrees. Any remaining medial capsule was released until the lesser trochanter was easily palpable. A retractor was placed medially. The lateral capsule was further released into the shoulder to allow access to the greater trochanter. A Becerra retractor was placed over the greater trochanter which allowed the trochanter to flip in front of the capsule for excellent exposure. The leg was brought down into maximal extension and 20 degrees of adduction while ensuring there was no impingement on the acetabulum. Any remnant capsule within the trochanter was released. Piriformis and obturator externis were identified and protected. There was excellent access to the proximal femur. The lateral neck remnant was removed with a rongeur. A blunt canal probe was used to identify the canal and trajectory for later broaching. A box osteotome initiated the broach course. A small curved rasp and a curved curette were used to work laterally. Broaching then began with a size 8 Corail broach. This was inserted manually around the trochanter and into the canal before mallet blows. The broach was seated to a few millimeters below the cut level based on the neck cut and the preoperative template. Sequential broaching was continued with the [id number] pneumatic broaching device until a tight fit was obtained with good rotational control of the femur. A trial short neck was inserted along with a +5 trial head. The leg was brought out of extension and adduction and then reduced with traction and internal rotation. The leg was stable anteriorly in a position of 30 degrees of extension and 90 degrees of external rotation. Fluoroscopy was used to ensure there was no fracture and the stem was seated well. Leg lengths were checked with an AP pelvis and pelvic reference points. CCBR-SYNARC navigation system was used to confirm appropriate positioning and leg length and offset. This seemed to indicate that we had under corrected both leg length and offset. This would be improved by going to the standard neck rather than short neck. Once content with the desired offset and leg lengths, the leg was brought back into extension, external rotation and adduction. The proximal femur was then planed. The beginning of this process there was a notable crack. The proximal femur, medially, had cracked and splintered and 2 small triangular piece of bone broke off. These cracks seem to go into the intertrochanteric ridge but not distal to it. They were probed manually and checked with an x- ray. They appear to be stable fractures. However, with the broach handle back on I was able to rotate the broach ever so slightly against the fracture pieces. Therefore, I proceeded to place a cable. The leg was brought out of extension and a cerclage cables placed around the proximal femur, distal to the vastus ridge and proximal to the lesser trochanter. This was placed and tightened provisionally. The periosteum and surrounding tissue was injected with remaining portion of the cassie-articular cocktail. The proximal femur was irrigated as well as the deep tissues. The Depuy Corail standard collared stem, size 11, was then manually inserted into the proximal femur making sure to control rotation. It was then malleted into position with light blows, giving breaks to allow bone expansion and decrease risk of fracture. The dual mobility construct was assembled on the back table with a 47 x 28 liner and a 28 x 5 mm Altrx Ceramic Head. This was then placed onto the clean and dry trunnion and secured with impaction onto the tapered fit. The leg was brought back out of extension and adduction and reduced with traction and internal rotation. The cerclage cable was finally tightened and crimped and cut. Stability was confirmed with no shuck at 90 degrees of supervisor kennel al rotation and 30 degrees of extension. No impingement through range of motion arc. Final x-ray images were obtained with fluoroscopy to confirm adequate positioning. The deep tissues were thoroughly irrigated with Surgiphor, betadine solution. This was allowed to sit in the wound for 3 minutes before being thoroughly irrigated out with normal saline. The capsule was then reapproximated with the previously placed Ethibond sutures. The TFL fascia was finally closed with a No. 2 Stratafix, barbed suture. Deep tissues were then reapproximated with 0 Vicryl and a running 2-0 Vicryl. The skin was closed with a running 4-0 Monocryl in a subcuticular fashion. This was reinforced with skin glue. A Mepilex silver dressing was applied. At the end of the case, all counts were correct. Sada was transferred to the hospital bed without difficulty. She did have an intraoperative fracture of the proximal femur which was maintained with a cerclage cable and will not affect her postoperative weightbearing precautions. Sada has a good prognosis. Physical therapy will start today and without restrictions, weight-bearing as tolerated. Aspirin 81mg BID will be used for DVT prophylaxis.
--- NOTE | 2023-05-03 18:47 | W.ANESPOSTOP ---
Postoperative Evaluation Date, Time and Location Date Performed: 05/03/23 Time Performed: 18:47 Patient Location: PACU Vital Signs Most Recent Imported Vital Signs: Most Recent Vital Signs Temp Pulse Resp BP Pulse Ox 36.4 C L 63 19 93/33 L 98 05/03/23 18:40 05/03/23 18:40 05/03/23 18:40 05/03/23 18:40 05/03/23 18:40 Pain Score Most Recent Pain Score: Most Recent Pain Score Pain Level [Left Hip] 10 05/02/23 21:45 Pain Level 0 05/03/23 18:40 Assessment Mental Status: Awake (Alert & Oriented to Patient Baseline) Airway and Respiratory Function: Patent airway with normal (patient baseline) respiratory exam Cardiovascular Function: Hemodynamically Stable Hydration Status: Adequately Hydrated Nausea & Vomiting: No Nausea or Vomiting Pain: Pain is tolerable per patient (rates 4/10) Peripheral Nerve Block: Patient did not receive a nerve block
[2023-05-03] MEDS: Melatonin 3 MG TAB 6 MG PO (21:47)
[2023-05-03] MEDS: dilTIAZem CD 120 MG CAPCR 240 MG PO (21:48)
[2023-05-03] MEDS: ceFAZolin 1 GM/50 ML BAG IVPB (23:44)
[2023-05-03] MEDS: LORazepam 0.5 MG TAB PO (23:47)
[2023-05-04 03:49] VITALS: BP 106/61; PULSE 70; RESP 18; TEMP 36.7; O2SAT 98
[2023-05-04 06:50] LABS: HCT 33.3 % (36.0-46.0); HGB 11.3 g/dL (11.2-15.7); MCH 31.5 pg (27.0-33.0); MCHC 33.9 % (32.0-36.0); MCV 93 fL (80-95); Platelet Count 235 10^3/uL (130-400); RBC 3.59 10^6/uL (3.93-5.22); RDW 13.6 % (11.7-14.6); RDW-SD 46.4 fL; WBC 16.55 10^3/uL (4.4-10.8)
[2023-05-04 06:54] LABS: Anion Gap 9.9 mmol/L (3-11); BUN 16 mg/dL (7-18); CO2 26.1 mmol/L (21.0-32.0); CREATININE 0.7 mg/dL (0.55-1.02); Calcium 9.1 mg/dL (8.5-10.1); Chloride 100 mmol/L (98-107); Estimated GFR 94.73 (mL/min/1.73m2); Glucose 176 mg/dL (74-106); Potassium 3.7 mmol/L (3.5-5.1); Sodium 136 mmol/L (136-145)
[2023-05-04 07:10] VITALS: BP 114/63; PULSE 68; RESP 18; TEMP 36.9; O2SAT 98
[2023-05-04] MEDS: Celecoxib 200 MG CAP PO ×2 (07:29→08:21)
[2023-05-04] MEDS: Pantoprazole 40 MG TABCR PO (07:29)
[2023-05-04] MEDS: Aspirin E.C. 81 MG TABEC PO ×2 (07:30→08:19)
[2023-05-04] MEDS: ceFAZolin 1 GM/50 ML BAG IVPB (07:31)
[2023-05-04] MEDS: Hydroxychloroquine 200 MG TAB PO (08:19)
[2023-05-04] MEDS: Ramipril 5 MG CAP 10 MG PO (08:20)
[2023-05-04] MEDS: Folic Acid 1 MG TAB 2 MG PO (08:20)
[2023-05-04] MEDS: Dexamethasone 4 MG TAB PO (08:21)
[2023-05-04] MEDS: Polyethylene Glycol 3350 17 GM PACKET PO (09:44)
--- NOTE | 2023-05-04 09:56 | IN_ITS ---
PT Notes Visit Reasons: Left Hip Fracture Physical Therapy Inpatient Initial Evaluation Date: 05/04/2023 Referring Doctor: Reymundo Oviedo MD PT Orders: PT CONSULT: S/P Ortho Surgery. S/P L Anterior EUSEBIA for fracture. WBAT Precautions: Fall. Standard. Activity as tolerated. Patient Profile/Admitting Diagnosis: Patient 67-year-old female with displaced left femoral neck fracture and is status post left anterior total hip arthroplasty on postoperative day 1. PMHX: All Active Problems Closed left hip fracture (Acute) Arthritis of ankle, right (Acute) COVID-19 (Acute) Encounter for screening laboratory testing for COVID-19 virus (Acute) Obstipation (Acute) Uterine fibroid (Acute) Abdominal pain in female (Acute) Low back pain (Acute) Diarrhea (Acute) Constipation (Acute) Arthritis of right subtalar joint (Chronic) Arthritis of right foot (Chronic) Medical History 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) History of colon polyps Family history of breast cancer Family history of malignant melanoma Anxiety HARISH positive Hepatic cyst Hypertension Microcytic anemia Arthritis of carpometacarpal (CMC) joint of right thumb Arthritis Menopausal symptoms Surgical History History of total knee replacement LeftNormal colonoscopy (~06/2020) History of bunionectomy of left great [place] [facility] [place] Social History/Home 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 Independent with all aspect of ADLs prior to surgery. Lives with in a private home with ramp to enter. Equipment Owned/DME: Bilateral axillary crutches Subjective: Verbalizes 3/10 pain at rest which subsided to 2/10 pain with weight bearing and ambulation activity. Denies headache, chest pain, and lightheadedness throughout session. Wondered if she could visit her nurse friend in the ICU as part of walking activity. Objective: General Observation: Resting in bed. Mepilex Ag over surgical incision. TEDS to be legs. Mcclellan catheter in place. Mental Status: Alert and oriented as to person, place, time, and purpose. Able to pay attention, focus, and respond appropriately. Pain: As above Vital Signs: Closely monitored by nursing staff ROM: Right Lower Extremity: Hip flexion WFL. Hip abduction WFL. Knee flexion WFL. Ankle dorsiflexion WFL. Ankle plantarflexion WFL. Left Lower Extremity: Hip flexion WFL. Hip abduction WFL. Knee flexion WFL. Ankle dorsiflexion WFL. Ankle plantarflexion WFL. Strength: Right Lower Extremity: Hip flexors 5/5. Hip abductors 5/5. Knee flexors 5/5. Knee extensors 5/5. Ankle dorsiflexors 5/5. Ankle plantarflexors 5/5. Left Lower Extremity: Hip flexors 4-/5. Hip abductors 4-/5. Knee flexors 4/5. Knee extensors 4-/5. Ankle dorsiflexors 5/5. Ankle plantarflexors 5/5. Bed Mobility/Transfers: Rolling independent Supine to sit independent Sit to supine independent Sit to stand independent with FWW Stand to sit independent with FWW Bed to reclining chair with supervision with minimal cues for safe/correct technique Reclining chair to bed with supervision with minimal cues for safe/correct technique Gait: Facilitated safe and correct performance of level surface ambulation covering a distance of 150 feet was 300 feet using front wheeled walker. Step through heel toe gait pattern requiring only standby assist with minimal verbal cueing for posture, walker management, and overall safety. Balance: Static Sitting: Normal Dynamic Sitting: Normal Static Standing: Fair Dynamic Standing: Fair Special Tests: Mobility Limitations Standardized Measure [facility] AM-PAC 6 clicks Basic Mobility Inpatient Short Form: Raw Score: 24 CMS Score: 0% deficit Informed Consent/Education: Patient was instructed in purpose of PT consult and plan of care. Agreeable to proceed with established PT POC to achieve personal goals. Trained patient with correct performance of exercises below to maximize motor control, joint flexibility, soft tissue extensibility of the L hip musculature to facilitate return to independent functional mobility performance. Access Code: [email or web address] URL: [email or web address] Date: 05/04/2023 Prepared by: Stephanie Mendoza Exercises - Gluteal Sets - 1 x daily - 7 x weekly - 1 sets - 10 reps - 5 hold - Supine Heel Slide - 1 x daily - 7 x weekly - 1 sets - 10 reps - 5 hold - Supine Ankle Pumps - 1 x daily - 7 x weekly - 1 sets - 10 reps - 5 hold - Seated March - 1 x daily - 7 x weekly - 1 sets - 10 reps - 5 hold - Seated Long Arc Quad - 1 x daily - 7 x weekly - 1 sets - 10 reps - 5 hold Assessment: Patient 67-year-old female with displaced left femoral neck fracture and is status post left anterior total hip arthroplasty on postoperative day 1. Patient presents with clinical signs and symptoms consistent with current/admitting diagnoses that have resulted to mobility limitations, gait instability, generalized weakness, and overall ADL decline as demonstrated by the following impairment level findings: 1. Decreased strength to L hip major muscle groups 2. Impaired sitting/standing balance 3. Impaired activity tolerance Impairments are contributing to the following functional limitations: 1. Difficulty with ambulation without assistive device 2. Increased completion time for mobility ADL performance 3. Increased risk for falls 4. Difficulty with managing steps alone safely Patient is assessed as a 86128 moderate complexity based on the following: History: 67-year-old female with past medical history as indicated above Examination: Demonstrable impairment in strength, balance, and mobility level with underlying impairments and functional limitations as exhibited above as well as deficit score of 11% utilizing the [facility] Mobility Inpatient Short Form Presentation: Evolving Decision Makin moderate complexity Goals: N/A. PT evaluation and 1-2 treatment session only for functional mobility training and HEP for improved mastery re-education/training for incresed mastery. Plan of Care/Treatment Plan: N/A. PT evaluation and 1-2 treatment session only for functional mobility training and HEP for improved mastery re-education/training for incresed mastery. DISCHARGE RECOMMENDATIONS: [] Home with no services [] [] Home with services [specify] [X] Home with outpatient PT. home when medically cleared by orthopedic surgeon. Recommend outpatient PT services in order to optimize functional mobility outcomes and facilitate return to independent community ambulation without an assistive device. [] SNF for continued rehabilitation [] [] [facility] [] [] SNF versus LTC based on ability to participate and progress [] 87484 TREATMENT CODE/TIME: 62574 x 20 minutes for a 1 unit, 21205 x 32 minutes for 2 units beginning at 10:18 AM and 11:00 AM. Thank you for the opportunity to participate in the care of this patient. Stephanie Mendoza PT, DPT, CLT [facility], [place]
[2023-05-04] MEDS: Multivitamin TAB 1 TAB PO (10:32)
--- NOTE | 2023-05-04 12:38 | DSE_ITS ---
Date of service: 05/04/23 Time of Service: 12:38 DS: Diagnosis Discharge Diagnosis (1) Closed left hip fracture: Status: Acute Discharge Plan Disposition Condition: Good Discharge Details Reason For Visit: Left Hip Fracture Admit Date/Time: 05/01/23 21:14 Admit Provider: Darren Kraft Attending Provider: Reymundo Oviedo Primary Care Provider: Kriss Rodriguez Hospital Course Hospital Course: Patient was admitted to the medical/surgical floor from the emergency department after a fall where she was diagnosed with a displaced femoral neck fracture on the left side. Surgery was performed on hospital day #2. She was admitted back to the medical/surgical floor following the procedure. The surgery was rose erated well without any notable medical, surgical, or anesthetic complications. Mobilization began postoperatively. She was voiding spontaneously. Vitals were stable. Physical therapy worked with the patient and was cleared for discharge home. No acute medical issues. Pain was controlled on oral regimen. Home Meds and New Rx's Prescriptions: New celecoxib 200 mg capsule 200 mg PO BID PRN (Reason: pain) Qty: 60 1RF aspirin 81 mg tablet,delayed release (DR/EC) 81 mg PO BID Qty: 60 0RF tramadol 50 mg tablet 50 mg PO Q4H PRNQty: 18 0RF acetaminophen 500 mg tablet 1,000 mg PO Q8H PRN (Reason: pain) Qty: 90 3RF pantoprazole 40 mg tablet,delayed release (DR/EC) 40 mg PO DAILY Qty: 30 0RF dexamethasone 4 mg tablet 4 mg PO DAILY Qty: 2 0RF Rx Instructions: Starting Post-Operative Day #1 (Day after surgery) Continued calcium carbonate [Antacid (calcium carbonate)] 200 mg calcium (500 mg) tablet,chewable 600 mg PO BID methotrexate sodium 2.5 mg tablet 2.5 mg PO QWEEK hydroxychloroquine 200 mg tablet 200 mg PO DAILY Humira Pen 40 mg/0.8 mL pen injector kit See Rx Instructions subcut .COMPLEX Rx Instructions: inject one - 40 mg/0.8 mL pen every 2 weeks subcut cholecalciferol (vitamin D3) 1,000 UNIT capsule 1,000 unit PO BID diltiazem HCl 120 MG tablet 240 mg PO HS quinapril 40 mg tablet 40 mg PO DAILY Hold Instructions: Pt Stopped/Never Started multivitamin [Multi-Day] 1 EACH tablet 1 ea PO DAILY folic acid 1 mg tablet 2 mg PO DAILY ramipril 10 mg capsule 10 mg PO DAILY Discontinued acetaminophen [Mapap Extra Strength] 500 MG tablet 1,000 mg PO TID Qty: 180 0RF Discharge Instructions Additional Instructions: Total Hip Discharge Instructions Activity: The most important activity is to walk. You should try to take short walks a few times a day. You have no restrictions on movement or positioning, but do not try to force what you do. You will find some stiffness and weakness with hip flexion (lifting your knee). Do not try to strengthen this too early, continue to practice walking and stairs and this will come. - Outpatient physical therapy can be helpful to help return you to a normal gait and improve your flexibility and strength. This can start around 2 weeks. For some patients, it?s not necessary. Usually this is determined at the time of discharge or at the first post-operative visit. - You should wear the CAMERON hose on both legs for 2 weeks. Dressing: Keep the surgical dressing in place for at least one week. After the first week it may be removed and replace with light gauze and tape or nothing. It may get wet after 3 days but avoid soaking the dressing. If it gets wet, just lightly pat dry. It is important to always keep some gauze between skin folds, especially when you are sitting. Spend some time with the wound exposed when you are lying flat as the incision does wrinkle onto itself. Medications: - You should take Tylenol and an anti-inflammatory Celebrex as your primary pain control medications. If the Celebrex is too expensive or not covered, please call the office for another alternative (Advil/Ibuprofen or Naproxen/Aleve). - You have been prescribed a stronger pain medication Tramadol for breakthrough pain, take as needed as prescribed. - You have also been prescribed a stomach acid reduction agent Pantoprozole to help reduce stomach acid and reflux. - You have also been prescribed Decadron to help with post-operative nausea and pain. You will take this for two days starting tomorrow. - You will be taking Aspirin 81mg twice a day for DVT prevention unless instructed otherwise. - If you have constipation you should take Colace or Miralax (both [id number]). It takes most people 3-4 days to have a bowel movement. Follow-up: 2 weeks If you have any acute concerns or questions, please do not hesitate to contact the office at [phone]. You may contact Dr. Oviedo with any questions after hours through the hospital at [phone] or on his cell phone at [phone]. Referrals: Reymundo Oviedo MD [ [facility] STAFF PHYSICIAN] - Equipment/Supplies: Partial Weight Bearing Crutches Activity:: Activity as Tolerated Shower/Bathe:: Cover Activity:: Activity as Tolerated Equipment/Supplies:: Crutches Diet:: As Tolerated DS: Summary Time Spent with Patient providing and/or coordinating discharge services: Less than 30 minutes Status at Discharge Functional status at discharge: uses cane/walker Overall status at discharge: patient is progressing back to baseline Mental Status: mental status grossly normal Speech and Movement: speech and movement normal Mood: congruent mood Affect: normal affect Exam Narrative Exam Narrative: Sitting up in the chair. No acute distress. Alert and orient x3. Evaluation of the left hip shows minimal swelling. No ecchymosis. Dressings clean dry and intact. No pain with hip internal and external rotation. Intact ankle dorsiflexion, plantarflexion, great toe extension and flexion. Sensation intact light touch over the deep and superficial peroneal nerve and tibial nerve. Psych Mental Status: mental status grossly normal Speech and Movement: speech and movement normal Mood: congruent mood Affect: normal affect DS: Data Vitals/I&O Vitals and I&O: Vital Signs Temperature 36.9 C 05/04/23 07:10 Temperature Source Tympanic 05/04/23 07:10 Pulse 68 05/04/23 07:10 Pulse Rhythm Regular 05/04/23 09:27 Respiratory Rate 18 05/04/23 07:10 Respiratory Effort Normal, Non-Labored 05/04/23 09:27 Respiratory Depth Normal 05/04/23 09:27 Respiratory Pattern Normal 05/04/23 09:27 Blood Pressure 114/63 05/04/23 07:10 Blood Pressure Mean 108 05/01/23 21:31 Blood Pressure Position Sitting 05/01/23 19:42 Pulse Oximetry 98 05/04/23 07:10 Respiratory End-tidal CO2 29 05/03/23 18:40 Oxygen Delivery Method Room Air 05/04/23 07:10 Oxygen Flow Rate 0 05/04/23 07:10 Pain Level 0 05/04/23 07:10 Intake & Output 05/03/23 05/04/23 05/04/23 23:59 11:59 23:59 Intake Total 1746.667 / 2558.771 0022 / 1100 Output Total 1450 / 2425 1250 / 1250 Balance 296.667 / -678.333 -150 / -150 Intake: IV 1746.667 / 1746.667 100 / 100 Oral 1000 / 1000 Output: Urine 1049 1250 / 1250 Estimated Blood Loss 400 / 400 Other: Urine Color Yellow Yellow Urine Appearance Clear Sediment Urine Odor Normal Comment There was a little bit of sediment that was down at the bottom of the price when i emptied it. Emesis Description None Voiding Methods Indwelling Catheter Data Completed and Pending Labs on day of discharge: Labs from last 24 hours 05/04/23 06:20 WBC 16.55 H RBC 3.59 L Hgb 11.3 Hct 33.3 L MCV 93 MCH 31.5 MCHC 33.9 RDW 13.6 Plt Count 235 MPV 10.0 Sodium 136 Potassium 3.7 Chloride 100 Carbon Dioxide 26.1 Anion Gap 9.9 BUN 16 Creatinine 0.7 Est GFR (CKD-EPI 2020) 94.73 Glucose 176 H Calcium 9.1 PFSH All Active Problems Rheumatoid arthritis (Chronic) On deep vein thrombosis (DVT) prophylaxis (Acute) Discharge planning issues (Acute) Leukocytosis (Acute) Closed left hip fracture (Acute) Arthritis of ankle, right (Acute) COVID-19 (Acute) Encounter for screening laboratory testing for COVID-19 virus (Acute) Obstipation (Acute) Uterine fibroid (Acute) Abdominal pain in female (Acute) Low back pain (Acute) Diarrhea (Acute) Constipation (Acute) Arthritis of right subtalar joint (Chronic) Arthritis of right foot (Chronic) Medical History 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) History of colon polyps Family history of breast cancer Family history of malignant melanoma Anxiety HARISH positive Hepatic cyst Hypertension Microcytic anemia Arthritis of carpometacarpal (CMC) joint of right thumb Arthritis Menopausal symptoms Surgical History History of total knee replacement Left Normal colonoscopy (~06/2020) History of bunionectomy of left great toe Colonoscopy - [facility] [place] Social History Smoking/Tobacco Use Status: Never Smoking risk assessment performed?: Yes Alcohol Intake: current Alcohol Intake frequency: holidays/special occasions only Drug use: Never Substance use type: does not use Household members: significant other Housing: house Number of Children: 1 Do you feel safe at home: Yes Do you feel safe in your relationship?: Yes Female Reproductive History Menstrual Menopause type: natural (August 2013) Time Spent with Patient Time Spent with Patient: <45 minutes Time was spent: ordering medications,tests, procedures, indepentently interpreting results, counseling the patient and care coordination
--- NOTE | 2023-05-04 13:22 | PTTR_ITS ---
Date of service: 05/04/23 Time of Service: 13:07 PT Notes Visit Reasons: Left Hip Fracture Inpatient Physical Therapy Treatment Note [facility] Date: 05/04/23 PRECAUTIONS: Fall, standard, activity as tolerated. WBAT LLE WITH AD. SUBJECTIVE: Patient reports feeling great, is eager to go home. OBJECTIVE: Patient sitting up in recliner with legs elevated, agreeable to therapy. ? PAIN: none reported although patient does grimace x2 when initially getting up out of recliner. VITALS: monitored by nursing staff. ? BED MOBILITY/TRANSFERS? Rolling L/R: independent Supine-sit: independent ? Sit-supine: independent ? Sit-stand: independent ? Stand-sit: independent ? Bed-Chair: independent ? Chair-bed: independent Gait Training (86346x7): Direct one-on-one instruction and skilled instruction in: [x] employing an assistive device [] modified weight-bearing status [x] movement sequencing [] turning and movement with proper form [x] Provided verbal cues for equipment management and technique [x] Provided instruction in gait pattern [] Patient education regarding pacing and breathing techniques to maximize activity tolerance? GAIT? Assistive Device: bilateral axillary crutches. ? Weight bearing: WBAT Assist: supervision? Distance:? 200 feet ? Deviation: Step-to gait pattern corrected with verbal cue x1. Slightly antalgic gait pattern favoring the left leg, as is to be expected when recovering from surgery, with slightly decreased stance time LLE. Equal stride length, good toe off, good heel strike. ? STAIRS: Patient ascends and descends 2 six inch stairs and 3 four inch stairs with single rail and axillary crutches x2 held in other hand to mimic h ome environment. CGA. Verbal cues for gait sequence. ? Therapeutic Exercises: Direct one-on-one instruction in therapeutic exercises to develop strength, endurance, range of motion and flexibility. ? Exercises ? Reviewed HEP as created by DPT Stephanie Mendoza including: * Glute sets 1x10 with 5 second hold * ankle pumps 1x10 * seated marching 1x10 * LAQ's 1x10 * heel slides 1x10 Patient demonstrates excellent comprehension of her home exercise program. Handout issued to patient. ASSESSMENT:? Patient tolerates therapy well, reports no increase in pain, no dizziness, no shortness of breath. PLAN: Patient to discharge home today, to follow up with providers per established plan of care. TREATMENT CODE/TIME: 13 minutes beginning at 13:07
--- NOTE | 2023-05-04 14:42 | PDOC.CMDIS ---
Date of service: 05/04/23 Time of Service: 14:42 LACE Index Scoring Tool Questions: Length of Stay (in days): 3 Was the patient admitted via the E.D.?: Yes E.D. Visits: 1 Answers: Total Score: 7 Risk of Readmission: Low Risk Care Management Discharge Plan Reason for Hospitalization: Hip fracture. Discharge Plan: Sada will be discharged home with no new services. She will follow up with her PCP, orthopedic surgeon and plan of care as instructed. Sada will be driven home by her friend Darrion via private vehicle. Patient/Family Education Needs: Review of discharge instructions including medications, limitations and follow up plan of care; discuss Ask Me Three and self management.
== END 2023-05-04 15:20 | disposition home or self-care (01) | DRG 522 ==
LOC: ER 22:05 → MS 05-02 00:30
PROVIDERS: Nurse Practitioner Acute Care; Admitting Provider General Practice; Emergency Provider Emergency Medicine; PCP Nurse Practitioner Family; Visit Provider Student in an Organized Health Care Education/Training Program
PROC: 0SRB04A Replacement of Left Hip Joint with Ceramic on Polyethylene Synthetic Substitute, Uncemented, Open Approach (ICD-10-PCS; CPT 27130; principal; 2023-05-03 15:00)
DX: S72.092A Other fracture of head and neck of left femur, initial encounter for closed fracture (principal); M96.89 Other intraoperative and postprocedural complications and disorders of the musculoskeletal system; W01.0XXA Fall on same level from slipping, tripping and stumbling without subsequent striking against object, initial encounter; Y93.K1 Activity, walking an animal; D72.829 Elevated white blood cell count, unspecified; I10 Essential (primary) hypertension; M06.9 Rheumatoid arthritis, unspecified; Z79.899 Other long term (current) drug therapy; Z96.652 Presence of left artificial knee joint; D50.9 Iron deficiency anemia, unspecified; F41.9 Anxiety disorder, unspecified; K76.89 Other specified diseases of liver; M18.11 Unilateral primary osteoarthritis of first carpometacarpal joint, right hand; D25.9 Leiomyoma of uterus, unspecified; K59.00 Constipation, unspecified; M19.071 Primary osteoarthritis, right ankle and foot
CPT/HCPCS: 27130; 20985; 00123; 36415; 51702; 80048; 80053; 85027; 86850; 86900; 86901; 87635; 93005; 97116; 97162; 97530; 99223; 99285; 71045; 73501; 73502; 73700; 81003; 81015; 83735; 85025; 85610; 93010; 99221; 99232; J0131; J0690; J1100; J1170; J1644; J2250; J2270; J2405; J2704; J8540

== ENCOUNTER 2023-05-18 11:02 | Outpatient (CLI) | payer MEDICARE, BC, SELFPAY ==
--- NOTE | 2023-05-18 08:15 | DI.RAD_ITS ---
Exam(s) XR HIP LT COMPLETE AP PELVIS EXAM: XR HIP LT COMPLETE AP PELVIS CLINICAL HISTORY: left EUSEBIA. TECHNIQUE: 2D digital imaging was performed. Two views. COMPARISON: CT CT LOWER EXTREMITY LT WO from 05/01/2023 XA XR HIP LT IN OR from 05/03/2023 FINDINGS: BONES: There has been no change in the alignment of the left hip prosthesis. Old fracture deformity of the left pubic symphysis. Spurring of both greater trochanters. No bony destructive lesion is se en. JOINTS: No dislocation present. SOFT TISSUE: Normal. IMPRESSION: Stable appearance of left hip prosthesis. DATA REPOSITORY: RADIATION DOSE DELIVERED:
== END 2023-05-18 11:03 | disposition home or self-care (01) ==
LOC: DIORS 11:02
PROVIDERS: PCP Family Medicine; Referring Provider Family Medicine; Visit Provider Student in an Organized Health Care Education/Training Program
DX: Z96.642 Presence of left artificial hip joint (principal); Z47.1 Aftercare following joint replacement surgery
CPT/HCPCS: 73502

== ENCOUNTER 2023-06-06 02:14 | Outpatient (CLI) | payer MEDICARE, BC, SELFPAY ==
[2023-06-06 11:44] LABS: Abs Immature Grans 0.01 10^3/uL (0.0-0.06); Absolute Basophil Count 0.08 10^3/uL (0.0-0.2); Absolute Eosinophil Count 0.24 10^3/uL (0.0-0.7); Absolute Monocyte Count 0.46 10^3/uL (0.1-0.8); Absolute Neutrophil Count 2.54 10^3/uL (1.2-6.7); Basophils % 1.5; Eosinophils % 4.6; HGB 12.2 g/dL (11.2-15.7); Immature Grans % 0.2; Lymphocytes % 36.3; MCH 31.9 pg (27.0-33.0); MCV 97 fL (80-95); Monocytes % 8.8; Neutrophils % 48.6; Platelet Count 316 10^3/uL (130-400); RBC 3.83 10^6/uL (3.93-5.22); RDW 14.6 % (11.7-14.6); RDW-SD 52.6 fL; WBC 5.23 10^3/uL (4.4-10.8)
[2023-06-06 12:05] LABS: ALT 16 U/L (14-59); AST 18 U/L (15-37); Albumin 3.5 g/dL (3.4-5.0); Alkaline Phosphatase 135 U/L (46-116); Anion Gap 7.2 mmol/L (3-11); BUN 14 mg/dL (7-18); Bilirubin, Total 0.5 mg/dL (0.2-1.0); C-Reactive Protein 0.33 mg/dL (0.0-0.3); CO2 27.8 mmol/L (21.0-32.0); CREATININE 0.8 mg/dL (0.55-1.02); Calcium 8.9 mg/dL (8.5-10.1); Chloride 103 mmol/L (98-107); Estimated GFR 80.71 (mL/min/1.73m2); Glucose 94 mg/dL (74-106); Potassium 3.9 mmol/L (3.5-5.1); Sodium 138 mmol/L (136-145); Total Protein 7.3 g/dL (6.4-8.2)
== END 2023-06-06 02:15 | disposition home or self-care (01) ==
PROVIDERS: PCP Family Medicine; Visit Provider Internal Medicine
DX: M06.09 Rheumatoid arthritis without rheumatoid factor, multiple sites (principal)
CPT/HCPCS: 36415; 80053; 85025; 86140

== ENCOUNTER → 2023-06-15 09:49 | Outpatient (BNVA) | payer MEDICARE, BC, SELFPAY | PROVIDERS: PCP Family Medicine | DX: Z47.1 Aftercare following joint replacement surgery (principal); Z96.642 Presence of left artificial hip joint ==

== ENCOUNTER 2023-09-01 02:34 | Outpatient (CLI) | payer MEDICARE, BC, SELFPAY ==
[2023-09-01 15:55] LABS: Abs Immature Grans 0.02 10^3/uL (0.0-0.06); Absolute Basophil Count 0.07 10^3/uL (0.0-0.2); Absolute Lymphocyte Count 2.62 10^3/uL (1.2-3.4); Absolute Monocyte Count 0.69 10^3/uL (0.1-0.8); Absolute Neutrophil Count 4.21 10^3/uL (1.2-6.7); Basophils % 0.9; Eosinophils % 2.6; HCT 36.4 % (36.0-46.0); HGB 12.1 g/dL (11.2-15.7); Immature Grans % 0.3; Lymphocytes % 33.5; MCH 31.8 pg (27.0-33.0); MCHC 33.2 % (32.0-36.0); MCV 96 fL (80-95); MPV 10.1 fL (8.0-11.0); Monocytes % 8.8; Neutrophils % 53.9; Platelet Count 313 10^3/uL (130-400); RBC 3.81 10^6/uL (3.93-5.22); RDW 14.6 % (11.7-14.6); WBC 7.81 10^3/uL (4.4-10.8)
[2023-09-01 16:25] LABS: ALT 17 U/L (14-59); AST 13 U/L (15-37); Albumin 3.5 g/dL (3.4-5.0); Alkaline Phosphatase 113 U/L (46-116); Anion Gap 7.8 mmol/L (3-11); BUN 24 mg/dL (7-18); Bilirubin, Total 0.3 mg/dL (0.2-1.0); CO2 29.2 mmol/L (21.0-32.0); Calcium 9.1 mg/dL (8.5-10.1); Chloride 101 mmol/L (98-107); Estimated GFR 61.75 (mL/min/1.73m2); Glucose 101 mg/dL (74-106); Potassium 4.1 mmol/L (3.5-5.1); Sodium 138 mmol/L (136-145); Total Protein 7.1 g/dL (6.4-8.2)
[2023-09-01 16:30] LABS: C-Reactive Protein < 0.50 mg/dL (<or=0.5)
== END 2023-09-01 02:35 | disposition home or self-care (01) ==
PROVIDERS: PCP Family Medicine; Visit Provider Internal Medicine
DX: M06.09 Rheumatoid arthritis without rheumatoid factor, multiple sites (principal)
CPT/HCPCS: 36415; 80053; 85025; 86140

== ENCOUNTER → 2023-12-18 03:50 | Outpatient (CLI) | payer MEDICARE, BC, SELFPAY ==
--- NOTE | 2023-12-18 | DI.MAMMO_ITS ---
Exam(s) MG MAMMO SCREENING 60 MIN DUR EXAM: MAMMO SCREENING 60 MIN DUR CLINICAL HISTORY: SCREENING, Z12.31 TECHNIQUE: Mammograms were interpreted according to the usual protocol including computer analysis w ith CAD system, tomosynthesis and C-view imaging. Implant displaced views were performed in addition to the routine views. COMPARISON: 2018 through 2022 FINDINGS: The breasts are composed of heterogeneously dense fibroglandular densities, Breast Density category C . The full field views both breasts as well as right-sided implant displaced views are over penetrated. Bilateral breast implants are again noted. Calcification of the periphery of the right breast implan t is again noted. No gross evidence of suspicious masses or suspicious microcalcifications are seen. No skin thickening or abnormal axillary lymph nodes are seen. There has been no significant change from prior exams. IMPRESSION: BI-RADS Category 0 - Assessment Incomplete: Need additional imaging evaluation. There is suboptimal technique bilaterally. Patient showed return for repeat imaging and no additional charge. Breast Density Category C, heterogeneously Dense. The mammogram demonstrates the patient's breast tissue is dense. Dense breast tissue is very common a nd is not abnormal but dense breast tissue can make it harder to find cancer on a mammogram. Also, de nse breast tissue may increase breast cancer risk. This information about the result of the mammogram report was provided to the patient to raise their awareness. Use this report when you speak with the patient about their risks for breast cancer, which includes their family history. At that time, you may recommend additional screening tests (Ultrasound or MRI) as they might be useful based on their r isk. A negative radiographic report should not delay biopsy if a dominant or clinically suspicious mass is present. Up to ten percent of cancers are not identified on mammography. A negative report may reinforce clinical impression. Adenosis and dense breasts may obscure an underlying neoplasm. False positive reports average 6 to 10%.
--- NOTE | 2023-12-18 | DI.DEXA_ITS ---
Exam(s) XR DEXA BONE DENSITY W/WO RICCI EXAM: XR DEXA BONE DENSITY W/WO RICCI CLINICAL HISTORY: Postmenopausal osteopenia, M85.88-other specified disorders of bone density TECHNIQUE: Hologic Horizon C densitometer analysis of right hip, lumbar spine and left forearm. La teral survey image of the thoracic and lumbar spine. COMPARISON: DX DEXA BONE DENSITY WITH RICCI from 08/08/2017 CT CHEST FOR PULMONARY EMBOLUS from 11/04/2017 CR,XR XR ABDOMEN FLAT UPRIGHT from 12/25/2020 CR XR DEXA BONE DENSITY W/WO RICCI from 01/12/2021 CR XR HIP LT COMPLETE AP PELVIS from 05/18/2023 FINDINGS: Lateral view of the thoracic and lumbar spine shows mild L1 compression fracture. Bone mineral density measurements of the lumbar spine correspond to a total T-score of 0.1, in the n ormal range. This represents a 14.6 percent increase compared with 2020 and 21.0 percent increase co mpared to 2018. Bone mineral density measurements of the right hip correspond to a total T-score of -0.9. The femor al neck T-score is -2.2, in the osteopenic range. The left hip was analyzed on the previous exam. The patient now has a left total hip prosthesis and could not be analyzed.. Theleft forearm bone mineral density measurements correspond to a T-score of the distal 3rd of -1.4, in the osteopenic range. The right forearm was analyzed on the previous exam with a T-score of the d istal 3rd of -1.2. IMPRESSION: Osteopenia of the hip and forearm. Normal bone mineral density of the spine.
== END ==
PROVIDERS: PCP Family Medicine; Visit Provider Nurse Practitioner Family
DX: M85.88 Other specified disorders of bone density and structure, other site (principal); Z12.31 Encounter for screening mammogram for malignant neoplasm of breast; Z13.820 Encounter for screening for osteoporosis; Z78.0 Asymptomatic menopausal state
CPT/HCPCS: 77063; 77067; 77080

== ENCOUNTER 2024-01-01 04:11 | Outpatient (CLI) | payer MEDICARE, BC, SELFPAY ==
[2024-01-01 12:48] LABS: Abs Immature Grans 0.02 10^3/uL (0.0-0.06); Absolute Basophil Count 0.06 10^3/uL (0.0-0.2); Absolute Eosinophil Count 0.24 10^3/uL (0.0-0.7); Absolute Lymphocyte Count 1.91 10^3/uL (1.2-3.4); Absolute Monocyte Count 0.51 10^3/uL (0.1-0.8); Absolute Neutrophil Count 4.24 10^3/uL (1.2-6.7); Basophils % 0.9 %; Eosinophils % 3.4 %; Immature Grans % 0.3 %; Lymphocytes % 27.4 %; MCHC 34.2 % (32.0-36.0); MCV 96 fL (80-95); MPV 10.3 fL (8.0-11.0); Monocytes % 7.3 %; Neutrophils % 60.7 %; Platelet Count 275 10^3/uL (130-400); RBC 3.94 10^6/uL (3.93-5.22); RDW 13.9 % (11.7-14.6); RDW-SD 49.2 fL; WBC 6.98 10^3/uL (4.4-10.8)
[2024-01-01 13:15] LABS: ALT 17 U/L (14-59); AST 16 U/L (15-37); Albumin 3.7 g/dL (3.4-5.0); Alkaline Phosphatase 104 U/L (46-116); Anion Gap 8.3 mmol/L (3-11); BUN 11 mg/dL (7-18); Bilirubin, Total 0.52 mg/dL (0.2-1.0); C-Reactive Protein < 0.50 mg/dL (<or=0.5); CO2 28.7 mmol/L (21.0-32.0); CREATININE 0.8 mg/dL (0.55-1.02); Chloride 102 mmol/L (98-107); Estimated GFR 80.21 (mL/min/1.73m2); Glucose 93 mg/dL (74-106); Potassium 4.1 mmol/L (3.5-5.1); Sodium 139 mmol/L (136-145); Total Protein 7.2 g/dL (6.4-8.2)
[2024-01-01 13:39] LABS: Calculated LDL 105 mg/dL (<100); Cholesterol 216 mg/dL (<200); HDL Cholesterol 95 mg/dL (40-60); Triglyceride 80 mg/dL (<150); Vitamin D 25 Total 74.5 ng/mL (30-100)
[2024-01-01 13:50] LABS: PHOSPHORUS 4.1 mg/dL (2.6-4.7)
== END 2024-01-01 04:12 | disposition home or self-care (01) ==
LOC: LBO 04:13
PROVIDERS: Nurse Practitioner Family; PCP Family Medicine; Visit Provider Internal Medicine
DX: M06.09 Rheumatoid arthritis without rheumatoid factor, multiple sites (principal); Z13.6 Encounter for screening for cardiovascular disorders; M85.80 Other specified disorders of bone density and structure, unspecified site
CPT/HCPCS: 80053; 80061; 82306; 84100; 85025; 86140

== ENCOUNTER 2024-03-07 11:04 | Outpatient (CLI) | payer MEDICARE, BC, SELFPAY ==
[2024-03-07 12:16] LABS: Magnesium 1.7 mg/dL (1.8-2.4)
== END 2024-03-07 11:05 | disposition home or self-care (01) ==
LOC: LBO 11:07
PROVIDERS: PCP Family Medicine; Visit Provider Nurse Practitioner Family
DX: M85.80 Other specified disorders of bone density and structure, unspecified site (principal)
CPT/HCPCS: 36415; 83735

== ENCOUNTER 2024-03-07 11:06 | Outpatient (REF) | payer MEDICARE, BC, SELFPAY ==
[2024-03-07 12:40] LABS: Creatinine,Urine 33.36 mg/dL
[2024-03-07 12:58] LABS: Total Volume 2750 ml
[2024-03-08 09:01] LABS: Calcium Urine 11.2 mg/dL (See Note); Calcium Urine 24 hr 308 mg/24hr (100-300); Timed Urine Volume 2750 mL
== END 2024-03-07 11:07 | disposition home or self-care (01) ==
LOC: LBN 11:06
PROVIDERS: PCP Family Medicine; Visit Provider Internal Medicine Endocrinology, Diabetes & Metabolism
DX: M81.0 Age-related osteoporosis without current pathological fracture (principal)
CPT/HCPCS: 81050; 82340; 82570

== ENCOUNTER 2024-04-17 03:14 | Outpatient (RCR) | payer MEDICARE, BC, SELFPAY ==
[2024-04-17] MEDS: Normal Saline Flush 10 ML SYR IVP (12:51)
[2024-04-17] MEDS: ZOLEDRONIC ACID/MANNITOL/WATER 5 MG/100 ML BTL 300 MG IVPB (12:51)
== END 2024-05-02 23:59 | disposition home or self-care (01) ==
LOC: INF 03:14
PROVIDERS: PCP Family Medicine; Visit Provider Family Medicine
DX: M81.0 Age-related osteoporosis without current pathological fracture (principal)
CPT/HCPCS: 96365; J3489

== ENCOUNTER 2024-05-06 15:06 | Outpatient (CLI) | payer MEDICARE, BC, SELFPAY ==
--- NOTE | 2024-05-06 09:00 | DI.RAD_ITS ---
Exam(s) XR HIP LT AP LAT ONLY EXAM: XR HIP LT AP LAT ONLY CLINICAL HISTORY: ANNUAL F/U L [facility]. TECHNIQUE: 2D digital imaging was performed. Two images were obtained. AP and lateral views were ob tained. COMPARISON: CR XR HIP LT COMPLETE AP PELVIS from 05/18/2023 FINDINGS: BONES: There are stable post operative changes of a left total hip replacement present. No fracture or dislocation. JOINTS: The orthopedic hardware is in good position. No evidence of hardware loosening. SOFT TISSUE: Normal. IMPRESSION: Stable left total hip replacement. DATA REPOSITORY: RADIATION DOSE DELIVERED:
== END 2024-05-06 15:07 | disposition home or self-care (01) ==
LOC: DIORS 15:06
PROVIDERS: PCP Nurse Practitioner Family; Referring Provider Nurse Practitioner Family; Visit Provider Student in an Organized Health Care Education/Training Program
DX: Z47.1 Aftercare following joint replacement surgery (principal); Z96.642 Presence of left artificial hip joint
CPT/HCPCS: 99213; 73502

== ENCOUNTER 2024-06-19 16:02 | Outpatient (REF) | payer MEDICARE, BC, SELFPAY ==
[2024-06-19 16:51] LABS: Abs Immature Grans 0.02 10^3/uL (0.0-0.06); Absolute Basophil Count 0.09 10^3/uL (0.0-0.2); Absolute Eosinophil Count 0.33 10^3/uL (0.0-0.7); Absolute Lymphocyte Count 2.05 10^3/uL (1.2-3.4); Absolute Monocyte Count 0.84 10^3/uL (0.1-0.8); Absolute Neutrophil Count 3.51 10^3/uL (1.2-6.7); Basophils % 1.3 %; Eosinophils % 4.8 %; HCT 40.6 % (36.0-46.0); HGB 13.3 g/dL (11.2-15.7); Immature Grans % 0.3 %; MCHC 32.8 % (32.0-36.0); MCV 98 fL (80-95); MPV 11.4 fL (8.0-11.0); Monocytes % 12.3 %; Neutrophils % 51.3 %; Platelet Count 272 10^3/uL (130-400); RBC 4.16 10^6/uL (3.93-5.22); RDW 13.8 % (11.7-14.6); RDW-SD 49.9 fL; WBC 6.84 10^3/uL (4.4-10.8)
[2024-06-19 17:02] LABS: Iron 41 ug/dL (50-170); Total Iron Binding Capacity 323 ug/dL (250-450); Transferrin Sat 13 % (15-50)
[2024-06-19 17:13] LABS: ALT 16 U/L (14-59); AST 21 U/L (15-37); Albumin 3.7 g/dL (3.4-5.0); Alkaline Phosphatase 92 U/L (46-116); Anion Gap 7.6 mmol/L (3-11); BUN 12 mg/dL (7-18); Bilirubin, Total 0.38 mg/dL (0.2-1.0); CO2 29.4 mmol/L (21.0-32.0); CREATININE 0.8 mg/dL (0.55-1.02); Calcium 9.1 mg/dL (8.5-10.1); Chloride 104 mmol/L (98-107); Estimated GFR 80.21 (mL/min/1.73m2); Ferritin 93 ng/mL (8-252); Glucose 76 mg/dL (74-106); Potassium 4.4 mmol/L (3.5-5.1); Sodium 141 mmol/L (136-145); Total Protein 7.2 g/dL (6.4-8.2)
== END 2024-06-19 16:03 | disposition home or self-care (01) ==
LOC: NCHCN 16:02
PROVIDERS: PCP Nurse Practitioner Family; Visit Provider Nurse Practitioner Family
DX: D50.9 Iron deficiency anemia, unspecified (principal)
CPT/HCPCS: 80053; 82728; 83540; 83550; 85025

== ENCOUNTER 2025-05-22 11:19 | Outpatient (CLI) | payer MEDICARE, BC, SELFPAY ==
--- NOTE | 2025-05-22 09:15 | DI.RAD_ITS ---
Exam(s) XR HIP LT AP LAT ONLY EXAM: XR HIP LT AP LAT ONLY CLINICAL HISTORY: ANNUAL F/U L [facility]. TECHNIQUE: 2D digital imaging was performed. COMPARISON: CR XR HIP LT AP LAT ONLY from 05/06/2024 FINDINGS: Two views There is continued stable position and alignment of the components of the left hip prosthesis with no fracture or loosening evident. A single circumferential fixation wire at the lower intertrochanteric region is again noted remains intact. The amount of mild dystrophic calcification around the prosthesis is unchanged. Also again noted is a healed fracture in the ipsilateral left symphysis pubis. IMPRESSION: Stable satisfactory appearance. DATA REPOSITORY: RADIATION DOSE DELIVERED:
== END 2025-05-22 11:20 | disposition home or self-care (01) ==
LOC: DIORS 11:20
PROVIDERS: PCP Nurse Practitioner Family; Referring Provider Nurse Practitioner Family; Visit Provider Physician Assistant
DX: Z47.1 Aftercare following joint replacement surgery (principal); Z96.642 Presence of left artificial hip joint
CPT/HCPCS: 99212; 73502

== ENCOUNTER 2025-06-06 13:11 | Outpatient (REF) | payer MEDICARE, BC, SELFPAY ==
[2025-06-06 15:36] LABS: Abs Immature Grans 0.02 10^3/uL (0.0-0.06); HCT 34.1 % (36.0-46.0); HGB 11.2 g/dL (11.2-15.7); Immature Grans % 0.2 %; MCH 31.0 pg (27.0-33.0); MCHC 32.8 % (32.0-36.0); MCV 95 fL (80-95); MPV 10.5 fL (8.0-11.0); Platelet Count 351 10^3/uL (130-400); RBC 3.61 10^6/uL (3.93-5.22); RDW 14.4 % (11.7-14.6); RDW-SD 49.0 fL; WBC 9.05 10^3/uL (4.4-10.8)
[2025-06-06 15:54] LABS: Iron 26 ug/dL (50-170)
[2025-06-06 15:58] LABS: Total Iron Binding Capacity 293 ug/dL (250-425); Transferrin Sat 9 % (15-50)
[2025-06-06 17:22] LABS: Ferritin 122 ng/mL (7-271)
[2025-06-06 17:30] LABS: Cholesterol 180 mg/dL (<200); HDL Cholesterol 79 mg/dL (>40)
== END 2025-06-06 13:12 | disposition home or self-care (01) ==
LOC: NCHCN 13:11
PROVIDERS: PCP Nurse Practitioner Family; Visit Provider Nurse Practitioner Family
DX: D50.9 Iron deficiency anemia, unspecified (principal); I10 Essential (primary) hypertension
CPT/HCPCS: 80061; 82728; 83540; 83550; 85025

== ENCOUNTER → 2025-06-17 00:42 | Outpatient (CLI) | payer MEDICARE, BC, SELFPAY ==
--- NOTE | 2025-06-17 | DI.MAMMO_ITS ---
Exam(s) MAMMO SCREENING EXAM: MAMMO SCREENING CLINICAL HISTORY: IMPLANTS, SCREENING, FAMILY H/O BREAST CA,Z12.31 TECHNIQUE: Bilateral full field digital CC and MLO mammographic images were obtained with 3D tomosynthesis and utilizing computer aided detection (CAD). COMPARISON: Comparison is made with prior examinations. FINDINGS: The patient has bilateral breast implants. There is again seen calcification of the capsule. Masses/Architectural Distortion: No suspicious masses or areas of architectural distortion are present. Microcalcifications: No suspicious pleomorphic-type are seen. Skin Thickening/Nipple Retraction: None. IMPRESSION: 1. No significant interval change with no specific features of malignancy noted. 2. Unless there is more urgent need, screening mammography is recommended, as per [place] [employer] guidelines. BI-RADS Category 1 - Negative Breast Density - Category C - The breast are heterogeneously dense, which may obscure small masses. Breast density Category C or D implies that the patient has dense breast tissue. Dense breast tissue can make it harder to find cancer on a mammogram. Dense breast tissue is also associated with an increased risk of breast cancer. This information about the result of the mammogram report was provided to the patient to raise their awareness. Use this report when you speak with the patient about their risks for breast cancer, which includes their family history. At that time, you may recommend additional screening tests (Ultrasound or MRI) as these tests may add significant information. A negative radiographic report should not delay biopsy if a dominant or clinically suspicious mass is present. Up to ten percent of cancers are not identified on mammography. A negative report may reinforce clinical impression. Adenosis and dense breasts may obscure an underlying neoplasm. False positive reports average 6 to 10%. Patient will receive a letter notifying them of these results.
== END ==
LOC: DI 00:42
PROVIDERS: PCP Nurse Practitioner Family; Visit Provider Nurse Practitioner Family
DX: Z12.31 Encounter for screening mammogram for malignant neoplasm of breast (principal)
CPT/HCPCS: 77063; 77067